=== PATIENT | male | born 1975 | race Caucasian/White ===

== ENCOUNTER 2023-04-09 10:02 | Outpatient (OUT) | payer BC, SELFPAY ==
[2023-04-09 10:47] LABS: Basophils Absolute Auto 0.1 10^3/uL (0.0-0.1); Basophils Percent Auto 0.5 % (0.2-2.0); Eosinophils Absolute Auto 0.3 10^3/uL (0.0-0.7); Eosinophils Percent Auto 2.7 % (0.9-7.0); Hematocrit 42.6 % (42.0-54.0); Hemoglobin 14.4 g/dL (14.0-18.0); Immature Granulocytes Abs Auto 0.04 10^3/uL (0.00-0.03); Immature Granulocytes Pct Auto 0.4 % (0.0-0.5); Lymphocytes Absolute Auto 2.4 10^3/uL (1.2-3.8); Lymphocytes Percent Auto 25.9 % (20.5-60.0); Mean Corpuscular HGB Conc 33.8 g/dL (29.9-35.2); Mean Corpuscular Hemoglobin 29.4 pg (25.9-34.0); Mean Corpuscular Volume 87.1 fL (80.0-94.0); Mean Platelet Volume 9.3 fL (9.5-13.5); Monocytes Absolute Auto 0.6 10^3/uL (0.3-0.8); Monocytes Percent Auto 6.7 % (1.7-12.0); Neutrophils Percent Auto 63.8 % (43.0-75.0); Platelet Count 295 10^3/uL (150-450); Red Blood Count 4.89 10^6/uL (4.70-6.10); Red Cell Distribution Width 11.9 % (11.0-15.0); White Blood Count 9.4 10^3/uL (4.0-11.0)
[2023-04-09 10:48] LABS: Estimated Average Glucose 103 mg/dL; Glycohemoglobin A1C 5.2 % (4.5-6.2)
[2023-04-09 11:03] LABS: Anion Gap 11.2; Carbon Dioxide 29.2 mmol/L (21.0-32.0); Chloride 107 mmol/L (98-107); Glucose 87 mg/dL (74-106); Potassium 5.4 mmol/L (3.5-5.1); Sodium 142 mmol/L (136-145)
[2023-04-09 11:04] LABS: Alanine Aminotransferase 26 U/L (16-63); Albumin Level 3.8 g/dL (3.4-5.0); Alkaline Phosphatase 136 U/L (46-116); Aspartate Amino Transferase 13 U/L (15-37); BUN Creatinine Ratio 15.1; Bilirubin Total 0.6 mg/dL (0.2-1.0); Calcium 9.3 mg/dL (8.5-10.1); Estimated GFR (African America >60 (>=60); Estimated GFR (Non-African Ame >60 (>=60); Globulin 3.7 g/dL; Total Protein 7.5 g/dL (6.4-8.2)
[2023-04-09 11:05] LABS: Chol HDL Ratio 3.2; Cholesterol 146 mg/dL (<=200); Free T3 3.03 pg/mL (2.18-3.98); HDL Cholesterol 46 mg/dL (40-60); Thyroid Stimulating Hormone 0.939 uIU/mL (0.358-3.740); Triglycerides 59 mg/dL (<=150); VLDL CHOLESTEROL 11.8 mg/dL
[2023-04-09 11:07] LABS: Prostate Specific Antigen Scrn 1.67 ng/mL (<=4.00)
== END 2023-04-09 10:03 | disposition home or self-care (01) ==
PROVIDERS: PCP Family Medicine; Visit Provider Family Medicine
DX: Z00.00 Encounter for general adult medical examination without abnormal findings (principal); E78.5 Hyperlipidemia, unspecified; R73.09 Other abnormal glucose; Z12.5 Encounter for screening for malignant neoplasm of prostate; Z12.12 Encounter for screening for malignant neoplasm of rectum
CPT/HCPCS: 36415; 80053; 80061; 83036; 84436; 84443; 84481; 85025; G0103

== ENCOUNTER 2024-09-01 16:36 | Outpatient (OUT) | payer OTHER, SELFPAY ==
--- NOTE | 2024-09-01 16:44 | XR_ITS ---
The [address] [address] Patient Name: BEN CR MRN: [id number] date: 1975 Sex: M Assigned Patient Location: [facility] Current Patient Location: [facility] Accession/Order Number: [id number] Exam Date: 09/01/2024 21:19 Report Date: 09/01/2024 21:21 At the request of: NORBERT ISIDRO MD Procedure: XR knee RT 3V XR knee RT 3V 09/01/2024 4:48 PM SIGNS AND SYMPTOMS: Posterior right knee pain PROTOCOL: Frontal, lateral, and oblique radiographs of the right knee COMPARISON: None FINDINGS: The weightbearing joint spaces are preserved. There is mild narrowing of patellofemoral joint space with a small joint effusion. There is no fracture or dislocation. No significant soft tissue swelling. XR/XR knee RT 3V IMPRESSION: No acute bony injury. Mild degenerative changes are noted in the patellofemoral joint space with a small joint effusion. Impression dictated by: Stevie Nash M.D. 09/01/2024 9:21 PM Dictation Location: [place] [address] Electronically authenticated by: [id number] Y Date: 09/01/2024 21:21
--- OUTSIDE RECORDS SUMMARY | 2024-09-01 16:44 | XMS_ITS | CCD ---
Author Organization [facility] Care Team Providers Care Wood Craftsman Name Role Phone RODRIGO LUCERO Unavailable Unavailable RODRIGO LUCERO Unavailable Unavailable NORBERT HERMOSILLO Unavailable Unavailable NORBERT HERMOSILLO Unavailable Unavailable DO Demarcus Bender Emergency Provider MD Norbert Hermosillo Primary Care Provider [phone] DO Jaleel Nair Attending Provider [phone] Neal Curtis Unavailable MD Norbert Hermosillo Primary Care Provider [phone] DO Jaleel Nair Attending Provider DR NORBERT HERMOSILLO Attending Unavailable DR NORBERT HERMOSILLO Consulting Unavailable DR NORBERT HERMOSILLO Primary Care Unavailable DR NORBERT HERMOSILLO Admitting Unavailable Jaleel Nair Admitting Unavailable Jaleel Nair Attending Unavailable Norbert Hermosillo Primary Care Unavailable Angi Fatima Admitting Unavailable Angi Fatima Attending Unavailable Norbert Hermosillo Primary Care Unavailable Jaleel Nair Admitting Unavailable Jaleel Nair Attending Unavailable Norbert Hermosillo Primary Care Unavailable Demarcus Bender Admitting Unavailable Demarcus Bender Attending Unavailable Norbert Hermosillo Primary Care Unavailable Jaleel Nair Admitting Unavailable Jaleel Nair Attending Unavailable Norbert Hermosillo Primary Care Unavailable MD Norbert Hermosillo Primary Care Provider [phone] MD Angi Fatima Attending Provider [phone] DO Jaleel Nair Attending Provider Angi Fatima Unavailable Josue Valderrama Attending Unavailable Allergies Allergy Classification Reported Allergen(s) Allergy Type Date of Onset Reaction(s) Facility (1 source) 35145,00; Translations: [73157,00] Propensity to adverse reactions (disorder) 1 [facility] Medications Current Medications Medication Drug Class(es) Dates Sig (Normalized) Sig (Original) gabapentin 300 mg oral capsule (3 sources) Anti-epileptic Agent Start: 01-26-2022 take 1 capsule by mouth three times daily Gabapentin 300 MG 1 capsule Orally three times daily for 30 day(s) Jan, Active ibuprofen 800 mg oral tablet (14 sources) Nonsteroidal Anti-inflammatory Drug Start: 06-06-2021 take 800 mg by mouth three times daily Ibuprofen Active 800 MG PO Three times daily June 05, 2021 11:00pm take 1 tablet by fiordaliza th every eight hours at mealtime as needed Ibuprofen 800 MG 1 tablet with food or milk as needed Orally every 8 hrs Active metaxalone 800 mg oral tablet (4 sources) Start: 06-06-2021 take 1 tablet by mouth three times daily Metaxalone (Skelaxin) 800 mg Tablet Active 800 MG PO Three times daily June 05, 2021 11:00pm nebivolol 10 mg oral tablet (13 sources) Nebivolol HCl 10 MG Oral for 81 Days Active predniSONE 10 mg oral tablet (4 sources) Start: 06-06-2021 take 60 mg by mouth once daily Prednisone Active 60 MG PO Daily 30 5 June 05, 2021 11:00pm traMADol hydrochloride 50 mg oral tablet (6 sources) Opioid Agonist Start: 01-26-2022 take 1 tablet by mouth three times daily as needed traMADol HCl 50 MG 1 tablet as needed Orally up to three times daily as needed for 7 days Jan, Active Completed/Discontinued Medications Medication Drug Class(es) Dates Sig (Normalized) Sig (Original) cyclobenzaprine hydrochloride 10 mg oral tablet (16 sources) Muscle Relaxant Start: 09-03-2021 take 1 tablet by mouth twice daily as needed Cyclobenzaprine HCl 10 MG 1 tablet as needed Orally up to twice daily as needed for 30 day(s) Oct, Not-Taking Problems Problem Classification Problem Date Documented Date Episodic/Chronic Other nervous system disorders (5 sources) Other specified mononeuropathies; Translations: [Other chronic pain] Onset: 01-16-2016 Chronic Other nervous system disorders (13 sources) Chronic pain; Translations: [Other chronic pain] Chronic Other screening for suspected conditions (not mental disorders or infectious disease) (1 source) Encounter for screening for malignant neoplasm of prostate; Translations: [ENC SCREEN MALIG NEOPLASM PROSTATE] Onset: 03-09-2022 Episodic Spondylosis; intervertebral disc disorders; other back problems (20 sources) Prolapsed lumbar intervertebral disc; Translations: [Other intervertebral disc displacement, lumbar region] Onset: 08-21-2021 Resolved: 10-21-2021 Chronic Sprains and strains (20 sources) Low back strain; Translations: [Strain of muscle, fascia and tendon of lower back, initial encounter] Onset: 08-21-2021 Resolved: 10-21-2021 06-06-2021 Episodic Unclassified (1 source) Strain of muscle, fascia and tendon of lower back, initial encounter; Translations: [Strain of muscle, fascia and tendon of lower back, initial encounter] Onset: 10-29-2021 Unclassified (1 source) Low back pain, unspecified; Translations: [Low back pain, unspecified] Onset: 06-06-2021 Results Test Name Value Interpretation Reference Range Facility CBC w/ Auto Diffon 4 Basophils/100 WBC (Bld) 0.5 % Normal 0.0-2.0 [facility] Comment on above: Performed By: #### 2 153589, [id number], 8796536, 64616848, 8298307, 0703366, 3854342, 68931472 #### [facility] [address] [place] [address] Basophils/Leukocytes Auto (Bld) [Pure # fraction] 0.1 E9/L Normal 0.0-0.2 [facility] Comment on above: Performed By: #### 2 273711, 55581566, 7846283, 90208046, 5486055, 3736192, 0001514, 59045702 #### [facility] [address] [place] [address] Eosinophils (Bld) [#/Vol] 0.2 E9/L Normal 0.0-0.5 [facility] Comment on above: Performed By: #### 2 453978, 34690266, 4042943, 24014436, 8928859, 5070016, 9253875, 33102988 #### [facility] [address] [place] [address] Eosinophils/100 WBC (Bld) 1.9 % Normal 0.0-8.0 [facility] Comment on above: Performed By: #### 2 317571, 78602820, 2631654, 19046123, 4479591, 8113718, 6423513, 44350120 #### [facility] [address] [place] [address] Erythrocyte distribution width (RBC) [Ratio] 13.0 % Normal 10.9-14.2 [facility] Comment on above: Performed By: #### 2 768516, 87606748, 5113953, 23646885, 4736854, 7544450, 3679367, 07424031 #### [facility] [address] [place] [address] Hematocrit (Bld) [Volume fraction] 41.8 % Normal 37.7-49.0 [facility] Comment on above: Performed By: #### 2 723505, 83523170, 4847592, 39528727, 8797093, 4406306, 9025679, 56000178 #### [facility] [address] [place] [address] Hemoglobin (Bld) [Mass/Vol] 14.3 g/dL Normal 13.5-17.5 [facility] Comment on above: Performed By: #### 2 130870, 26480081, 6152075, 80698708, 4981740, 5308268, 4635820, 67238986 #### [facility] [address] [place] [address] Lymphocytes (Bld) [#/Vol] 2.6 E9/L Normal 1.0-4.0 [facility] Comment on above: Performed By: #### 2 014493, 48402871, 7654352, 47067772, 2123367, 7987926, 8886467, 22857012 #### [facility] [address] [place] [address] Lymphocytes/100 WBC (Bld) 26.9 % Normal 14.0-50.0 [facility] Comment on above: Performed By: #### 2 851071, 56562130, 1420396, 83093255, 0883244, 7698065, 7240717, 70809980 #### [facility] [address] [place] [address] MCH (RBC) [Entitic mass] 29.7 pg Normal 27.0-34.0 [facility] Comment on above: Performed By: #### 2 330883, 87549347, 7770186, 62206557, 7824187, 6062174, 3597447, 70465268 #### [facility] [address] [place] [address] MCHC (RBC) [Mass/Vol] 34.3 g/dL Normal 31.4-36.0 [facility] Comment on above: Performed By: #### 2 815825, 28008235, 1603991, 00634106, 4591743, 9779574, 3324859, 42422970 #### [facility] [address] [place] [address] MCV (RBC) [Entitic vol] 86.8 fL Normal 80.0-100.0 [facility] Comment on above: Performed By: #### 2 464068, 56284852, 6171069, 24060869, 9461717, 5636201, 5590884, 25964181 #### [facility] [address] [place] [address] Monocytes (Bld) [#/Vol] 0.7 E9/L Normal 0.2-1.0 [facility] Comment on above: Performed By: #### 2 490126, 80982158, 3411520, 04125165, 8235223, 2750281, 3211265, 32261221 #### [facility] [address] [place] [address] Neutrophils (Bld) [#/Vol] 6.2 E9/L Normal 2.0-7.5 [facility] Comment on above: Performed By: #### 2 633423, 77410328, 7062940, 12413629, 1598630, 7186892, 2214294, 83758385 #### [facility] [address] [place] [address] Neutrophils/100 WBC (Bld) 63.3 % Normal 36.0-75.0 [facility] Comment on above: Performed By: #### 2 654039, 81804494, 9344218, 10805062, 7213112, 1155689, 9851685, 77750721 #### [facility] [address] [place] [address] Platelet mean volume (Bld) [Entitic vol] 7.8 fL Normal 6.4-10.8 [facility] Comment on above: Performed By: #### 2 086731, 86784161, 6656811, 70043197, 8387654, 2977861, 9834121, 82795294 #### [facility] [address] [place] [address] Platelets (Bld) [#/Vol] 248.0 E9/L Normal 150.0-500.0 [facility] Comment on above: Performed By: #### 2 630926, 99067158, 7819453, 74812882, 8754736, 0266597, 2206817, 01041253 #### [facility] [address] [place] [address] RBC (Bld) [#/Vol] 4.8 E12/L Normal 4.3-5.9 [facility] Comment on above: Performed By: #### 2 390124, 59525066, 4532082, 70666171, 2234436, 2878061, 3036225, 23553506 #### [facility] [address] [place] [address] WBC corrected for nucl RBC Auto (Bld) [#/Vol] 9.8 E9/L Normal 4.0-11.0 [facility] Comment on above: Performed By: #### 2 628863, 46216910, 6954464, 85439686, 6484281, 6873440, 3886368, 37818004 #### [facility] [address] [place] [address] CMPon 04-24-2023 Albumin [Mass/Vol] 4.3 g/dL Normal 3.3-5.0 [facility] Comment on above: Performed By: #### 2 494649, 57651105, 7087377, 51254787, 7090602, 5542034, 1316827, 52552842 #### [facility] [address] [place] [address] Albumin/Globulin (S) [Mass conc ratio] 1.7 Normal 1.1-2.2 [facility] Comment on above: Performed By: #### 2 291017, 78094832, 6887213, 78935717, 7266278, 4120771, 6528871, 55998460 #### [facility] [address] [place] [address] ALP [Catalytic activity/Vol] 102 Int._Unit/L High 21-98 [facility] Comment on above: Performed By: #### 2 648560, 74597464, 9815021, 08539554, 2175089, 7002271, 4868712, 20535539 #### [facility] [address] [place] [address] ALT No additional P-5'-P [Catalytic activity/Vol] 15 Int._Unit/L Normal 6-46 [facility] Comment on above: Performed By: #### 2 752782, 37173772, 5444532, 58935043, 5073774, 6747931, 8843174, 28253504 #### [facility] [address] [place] [address] Anion gap [Moles/Vol] 12 mmol/L Normal 6-16 [facility] Comment on above: Performed By: #### 2 278891, 76232779, 9770253, 13540531, 7618274, 6628222, 4619367, 81372327 #### [facility] [address] [place] [address] AST [Catalytic activity/Vol] 16 Int._Unit/L Normal 5-43 [facility] Comment on above: Performed By: #### 2 916430, 28552232, 4721084, 49670029, 6708517, 0117816, 7640632, 48773957 #### [facility] [address] [place] [address] Bilirubin [Mass/Vol] 0.4 mg/dL Normal 0.0-1.1 [facility] Comment on above: Performed By: #### 2 025098, 71241763, 0710366, 77123969, 9524536, 2605165, 5488083, 47417561 #### [facility] [address] [place] [address] Calcium [Mass/Vol] 9.1 mg/dL Normal 8.9-11.1 [facility] Comment on above: Performed By: #### 2 207671, 72464058, 1558353, 16798568, 2169768, 9247004, 2403652, 31611637 #### [facility] [address] [place] [address] Chloride [Moles/Vol] 108 mmol/L Normal 101-111 [facility] Comment on above: Performed By: #### 2 763765, 93689948, 8729741, 71899122, 0510183, 7137210, 2138153, 25172098 #### [facility] [address] [place] [address] CO2 [Moles/Vol] 23 mmol/L Normal 21-31 [facility] Comment on above: Performed By: #### 2 931716, 82853635, 0383555, 81174688, 5937299, 0524393, 3871848, 91502144 #### [facility] [address] [place] [address] Creatinine [Mass/Vol] 1.1 mg/dL Normal 0.5-1.3 [facility] Comment on above: Performed By: #### 2 940704, 19915506, 9897319, 18088033, 5619770, 5171554, 6599932, 06221524 #### [facility] [address] [place] [address] Globulin (S) [Mass/Vol] 2.5 g/dL Normal 1.4-4.0 [facility] Comment on above: Performed By: #### 2 074590, 64259349, 1455344, 39744801, 3267571, 8125621, 7900115, 00129245 #### [facility] [address] [place] [address] Glucose [Mass/Vol] 97 mg/dL Normal 55-199 [facility] Comment on above: Performed By: #### 2 539308, 98394004, 4779231, 22106414, 9168371, 1188108, 3024849, 46769374 #### [facility] [address] [place] [address] Potassium [Moles/Vol] 4.2 mmol/L Normal 3.5-5.3 [facility] Comment on above: Performed By: #### 2 940633, 18896244, 2628515, 99638754, 6554827, 1559940, 3592893, 49482793 #### [facility] [address] [place] [address] Protein [Mass/Vol] 6.8 g/dL Normal 6.0-7.8 [facility] Comment on above: Performed By: #### 2 524052, 47629731, 6958695, 90655912, 5697589, 4622860, 6017849, 03531823 #### [facility] [address] [place] [address] Sodium [Moles/Vol] 139 mmol/L Normal 135-145 [facility] Comment on above: Performed By: #### 2 087272, 08617585, 4054648, 90326335, 0229334, 0995819, 3581905, 40831988 #### [facility] [address] [place] [address] Urea nitrogen [Mass/Vol] 24 mg/dL High 5-21 [facility] Comment on above: Performed By: #### 2 703681, 24601044, 4974972, 04635119, 5553831, 7805793, 2046101, 74675215 #### [facility] [address] [place] [address] Urea nitrogen/Creatinine [Mass ratio] 22 No Units High 10-20 [facility] Comment on above: Performed By: #### 2 186966, 18869435, 5254346, 73662562, 4650096, 2470302, 8835814, 01903335 #### [facility] [address] [place] [address] Consent for Treatmenton Consent for Treatment [id number] .00TIFF Normal [facility] Discharge Instructionson Discharge Instructions [id number]. 00TIFF Normal [facility] ED Clinical Summaryon 2023 ED Clinical Summary [address] [address] ED Clinical Summary Person Information Name: BEN AARON [place] Age: 47 Years : 1975 Sex: Male Language: Indonesian PCP: Norbert Hermosillo MD Marital Status: Visit Id: Visit Reason: Ankle pain-swelling; Nausea; Weakness or fatigue; FEELS LIKE HES ABOUT TO FALL OVER Speciality: Acuity: 3 Enc Type: Emergency Med Service: Emergency Arrival: 04/24/2023 06:39:21 Discharge: 04/24/2023 08:21:36 LOS: 000 01:42 Checkin: 04/24/2023 06:39:21 Checkout: 04/24/2023 08:21:36 Dispo Type: Home (Routine DC) EVENTS: Event Name Event Status Request Date/Time Start Date/Time Complete Date/Time Arrive Complete 04/24/2023 06:39:21 04/24/2023 06:39:21 04/24/2023 06:39:21 Document Home Meds Request 04/24/2023 06:39:21 Triage Complete 04/24/2023 06:39:21 04/24/2023 06:48:10 04/24/2023 06:48:10 EKG Complete 04/24/2023 06:45:00 04/24/2023 06:51:17 Registration Complete 04/24/2023 06:46:37 04/24/2023 06:46:37 04/24/2023 06:46:37 Reg Complete Request 04/24/2023 06:46:37 Reg Bed Request Complete 04/24/2023 06:46:37 04/24/2023 06:46:37 04/24/2023 06:46:37 Bed Assign Complete 04/24/2023 06:52:24 04/24/2023 06:52:24 04/24/2023 06:52:24 Dr Exam Complete 04/24/2023 06:52:24 04/24/2023 07:03:42 04/24/2023 07:03:42 RN Exam Complete 04/24/2023 06:52:24 04/24/2023 06:56:01 04/24/2023 06:56:01 Registration Complete 04/24/2023 07:03:42 04/24/2023 07:16:13 04/24/2023 07:16:13 Pending Labs Complete 04/24/2023 07:13:49 04/24/2023 07:48:21 Lab Complete 04/24/2023 07:13:49 04/24/2023 07:47:48 Urine Collect Complete 04/24/2023 07:13:49 04/24/2023 07:47:48 X-Ray Complete 04/24/2023 07:13:49 04/24/2023 07:39:46 04/24/2023 07:51:35 Pending Labs Complete 04/24/2023 07:18:11 04/24/2023 07:18:11 04/24/2023 07:36:32 Lab Complete 04/24/2023 07:18:11 04/24/2023 07:18:11 04/24/2023 07:36:32 Pending Labs Complete 04/24/2023 07:44:02 04/24/2023 07:44:02 04/24/2023 07:44:03 Wet Read Complete 04/24/2023 07:51:35 04/24/2023 07:51:42 04/24/2023 07:51:42 Discharge Complete 04/24/2023 08:14:23 04/24/2023 08:21:42 04/24/2023 08:21:42 Transfer Complete 04/24/2023 08:21:42 04/24/2023 08:21:42 04/24/2023 08:21:42 ADDRESS: [address] [place] [id number] [facility] DOC NOTES: MEDICAL INFORMATION: Prescriptions Given: Medications to Continue with No Changes Other Medications nebivolol (nebivolol 10 mg Tab) 1 Tablets By Mouth every day. PATIENT EDUCATION INFORMATION: Instructions: Weakness; Bradycardia, Adult Follow up: With: Address: When: Kendell Harp [address] [place] [address] Business (1) In 3 days 04/27/2023 With: Address: When: Tammyjossy Lunaker [address], [facility] [address] [place] [address] Business (1) In 3 days 04/27/2023 DIAGNOSIS: Bradycardia; Weakness Normal [facility] ED Note-Physicianon 04-24-19 ED Note-Physician Basic Information Time Seen: Josue Valderrama DO 04/24/2023 07:03 Chief Complaint I feel like I am going to fall over , feel cold and nauseated since this AM. Intermittent throughout the week, worse this AM. (L) ankle pain last night that was shooting and gone this AM. No N/V/D. History of Present Illness 47 male presents to the emergency department with generalized weakness. Patient states he has been feeling this way throughout the last week. He cannot really describe it he states that he just feels generally weak all over. This is not one-sided. He has never had anything like this before. He denies any pain no headache chest pain or abdominal pain no recent illnesses no cough fevers nausea vomiting diarrhea. He does state that he has had some difficulty urinating and does mention a foul-smelling urine. Only significant past medical history is that he has had partial nephrectomy due to kidney cancer back in 2019. He did state that he had some recent blood work done within the last few weeks and his potassium level was noted to be high but his primary care physician did not seem to be concerned about this family would like this checked again today. He denies any history of problems with his thyroid. He does take nebivolol and states he has been on this for some time he denies any recent changes to this medication regimen. No other aggravating or relieving factors no other associated symptoms no other prior treatments or complaints. Family: Reviewed and noncontributory Social: lives at home Review of systems negative unless otherwise specified in the HPI. Physical Exam Vitals & Measurements T: 36.5 ?C(Oral) HR: 55(Monitored) RR: 16 BP: 125/83 SpO2: 99% HT: 182 cm WT: 114.6 kg BMI: 34.6 General: The patient appears well and in no apparent distress. Patient is resting comfortably on cart. Skin: Warm, dry, no pallor noted. Head: Normocephalic, atraumatic Neck: No JVD Eye: PERRLA, EOMI ENT: Moist mucus membranes Cardiovascular: Bradycardic rate regular rhythm with normal peripheral perfusion Respiratory: No respiratory distress no accessory muscle use no obvious audible wheezing Chest Wall: no deformity Musculoskeletal: normal ROM, no deformity, no swelling GI: Soft no obvious distention. No rebound or rigidity. No guarding. No tenderness. Neurological: A&O moves all extremities equal strength and symmetry no focal motor or sensory deficits full range of motion noted to the bilateral upper and lower extremities. Cranial nerves grossly intact as tested. Psychiatric: Cooperative and appropriate Medical Decision Making Workup in the ER has been reviewed and noted. Workup here is essentially benign. Cardiac and kidney workup benign chest x-ray is normal thyroid studies are normal [place] testing is negative. The etiology of the generalized weakness not entirely clear at this time. Patient does have nonspecific bradycardia likely secondary to the nebivolol. It is unclear if this has any clinical significance or is playing a role in his generalized fatigue. Family did request referral to new primary care physician and this was provided here. 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 Therefore patient is given referral to cardiology here. We talked about the very large differential diagnosis for generalized weakness without cause including neurological symptoms. I did explain that this may take days weeks or sometimes months or years to sort out and that he would need to follow-up with his primary care physician and may need to see specialist if other things develop such as neurological symptoms. Patient and family understood and ultimately patient is discharged home to follow-up. Assessment/Plan Bradycardia (R00.1: Bradycardia, unspecified) Weakness (R53.1: Weakness) Orders: CBC w/ Auto Diff Comprehensive Metabolic Panel eGFR Extra Blue Tube Lipase Level Magnesium Level Mononucleosis Screen Troponin 0 Hr. TSH With T4fr Reflex UA With Cult Reflex XR Chest 2 Views Disposition Plan Discharge Prescription List Prescriptions No active prescription medications Follow-up With When Contact Information Kendell Harp In 3 days 04/27/2023 EDT [address] [place] [address]- Business (1) Additional Instructions: Tammy Mckeon In 3 days 04/27/2023 EDT [address], [address] [place] [address]- Business (1) Additional Instructions: Patient Education Weakness Bradycardia, Adult Problem List/Past Medical History Ongoing Acute bronchitis Anxiety BMI 35.0-35.9,adult Chest pain Complex renal cyst Depression Diabetes Duodenitis Encounter for vasectomy Esophagitis Genital warts GERD (gastroesophageal reflux disease) Hypertension Insomnia Knee osteoarthritis Lesion of left femoral nerve Lumbar radiculopathy Obesity Reflex symp (more content not included)... Normal [facility] Comment on above: Result Comment: Elec tronically Signed By: Josue Valderrama DO\db\Date and Time Signed: 04/24/23 08:16 EST ED Patient Education Noteon 04-24-2023 ED Patient Education Note Emergency Medicine Bradycardia, Adult Bradycardia is a jyxsyz-kfhx-eyldsl heartbeat. A normal resting heart rate for an adult ranges from 60 to 100 beats per minute. With bradycardia, the resting heart rate is less than 60 beats per minute. Bradycardia can prevent enough oxygen from reaching certain areas of your body when you are active. It can be serious if it keeps enough oxygen from reaching your brain and other parts of your body. Bradycardia is not a problem for everyone. For some healthy adults, a slow resting heart rate is normal. What are the causes? This condition may be caused by: ? A problem with the heart, including: ? A problem with the heart's electrical system, such as a heart block. With a heart block, electrical signals between the chambers of the heart are partially or completely blocked, so they are not able to work as they should. ? A problem with the heart's natural pacemaker (sinus node). ? Heart disease. ? A heart attack. ? Heart damage. ? Lyme disease. ? A heart infection. ? A heart condition that is present at (congenital heart defect). ? Certain medicines that treat heart conditions. ? Certain conditions, such as hypothyroidism and obstructive sleep apnea. ? Problems with the balance of chemicals and other substances, like potassium, in the blood. ? Trauma. ? Radiation therapy. What increases the risk? You are more likely to develop this condition if you: ? Are age 65 or older. ? Have high blood pressure (hypertension), high cholesterol (hyperlipidemia), or diabetes. ? Drink heavily, use tobacco or nicotine products, or use drugs. What are the signs or symptoms? Symptoms of this condition include: ? Light-headedness. ? Feeling faint or fainting. ? Fatigue and weakness. ? Trouble with activity or exercise. ? Shortness of breath. ? Chest pain (angina). ? Drowsiness. ? Confusion. ? Dizziness. How is this diagnosed? This condition may be diagnosed based on: ? Your symptoms. ? Your medical history. ? A physical exam. During the exam, your health care provider will listen to your heartbeat and check your pulse. To confirm the diagnosis, your health care provider may order tests, such as: ? Blood tests. ? An electrocardiogram (ECG). This test records the heart's electrical activity. The test can show how fast your heart is beating and whether the heartbeat is steady. ? A test in which you wear a portable device (event recorder or Holter monitor) to record your heart's electrical activity while you go about your day. ? An exercise test. How is this treated? Treatment for this condition depends on the cause of the condition and how severe your symptoms are. Treatment may involve: ? Treatment of the underlying condition. ? Changing your medicines or how much medicine you take. ? Having a small, battery-operated device called a pacemaker implanted under the skin. When bradycardia occurs, this device can be used to increase your heart rate and help your heart beat in a regular rhythm. Follow these instructions at home: Lifestyle ? Manage any health conditions that contribute to bradycardia as told by your health care provider. ? Follow a heart-healthy diet. A job development specialist (dietitian) can help educate you about healthy food options and changes. ? Follow an exercise program that is approved by your health care provider. ? Maintain a healthy weight. ? Try to reduce or manage your stress, such as with yoga or meditation. If you need help reducing stress, ask your health care provider. ? Do not use any products that contain nicotine or tobacco. These products include cigarettes, chewing tobacco, and vaping devices, such as e-cigarettes. If you need help quitting, ask your health care provider. ? Do not use illegal drugs. Alcohol use If you drink alcohol: ? Limit how much you have to: ? 0?1 drink a day for women who are not . ? 0?2 drinks a day for men. ? Know how much alcohol is in a drink. In the [place] one drink equals one 12 oz bottle of beer (355 mL), one 5 oz glass of wine (148 mL), or one 1? oz glass of hard liquor (44 mL). General instructions ? Take fxye-vpd-dykytiy and prescription medicines only as told by your health care provider. ? Keep all follow-up visits. This is important. How is this prevented? In some cases, bradycardia may be prevented by: ? Treating underlying medical problems. ? Stopping behaviors or medicines that can trigger the condition. Contact a health care provider if: ? You feel light-headed or dizzy. ? You almost faint. ? You feel weak or are easily fatigued during physical activity. ? You experience confusion or have memory problems. Get help right away if: ? You faint. ? You have chest pains or an irregular heartbeat (palpitations). ? You have trouble breathing. These symptoms may represent a serious problem that is an emergency. Do not wait to s (more content not included)... Normal [facility] ED Patient Summaryon 024 ED Patient Summary [place] [address] Patient Discharge Instructions Person Information Name: BEN AARON Age: 47 Years Arrival Date: 04/24/2023 06:39:21 Discharge Diagnosis: Bradycardia; Weakness Primary Care Physician: Norbert Hermosillo MD Provider Information Primary Provider: Josue Valderrama DO Advanced Rotary Pump Operator:Marie The exam and treatment you received in the Emergency Department were for an urgent problem and are not intended as complete care. It is important that you follow up with a doctor, nurse practitioner, or physician?s pathologist assistant for ongoing care. If your symptoms become worse or you do not improve as expected and you are unable to reach your usual health care provider, you should return to the Emergency Department. We are available 24 hours a day. BEN AARON has been given the following list of patient education materials, prescriptions and follow-up instructions: Follow-up Instructions: With: Address: When: Kendell Harp [address] [place] [address] [facility] () In 3 days 04/27/2023 With: Address: When: [facility] Mckeon [address] [facility] , [address] [address] [facility] (1) In 3 days 04/27/2023 In the event that this physician does not participate in your insurance network, please consult with your insurance company to find a nearby participating provider. Patient Education Materials: Weakness; Bradycardia, Adult A MESSAGE TO ALL PATIENTS REGARDING OPIOIDS PRESCRIPTION OPIOIDS: WHAT YOU NEED TO KNOW Prescription opioids can be used to help relieve renocluh-sb-hexsng pain and are often prescribed following a surgery or injury, or for certain health conditions. These medications can be an important part of the treatment but also come with serious risks. It is important to work with your healthcare provider to make sure you are getting the safest, most effective care. WHAT ARE THE RISKS AND SIDE EFFECTS OF OPIOID USE? Prescription opioids carry serious risks of addiction and overdose, especially with prolonged use. An opioid overdose, often marked by slowed breathing, can cause sudden . The use of prescription opioids can have a number of side effects as well, even when taken as directed: ? Tolerance?meaning you might need to take more of the medication for the same pain relief ? Physical dependence?meaning you have symptoms of withdrawal when a medication is stopped ? Increased sensitivity to pain ? Constipation ? Nausea, vomiting, and dry mouth ? Sleepiness and dizziness ? Confusion ? Depression ? Low levels of testosterone that can result in lower sex drive, energy, and strength ? Itching and sweating RISKS ARE GREATER WITH: ? History of drug misuse, substance use disorder, or overdose ? Mental health conditions (such as depression or anxiety) ? Sleep apnea ? Older age (65 years and older) ? Avoid alcohol while taking prescription opioids. Also, unless specifically advised by your health care provider, medications to avoid include: ? Benzodiazepines (such as Xanax or Valium) ? Muscle relaxants (such as Soma or Flexeril) ? Hypnotics (such as Ambien or Lunesta) ? Other prescription opioids KNOW YOUR OPTIONS Talk to your health care provider about ways to manage your pain that don?t involve prescription opioids. Some of these options may actually work better and have fewer risks and side effects. Options may include: ? Pain relievers such as acetaminophen, ibuprofen, and naproxen ? Some medication that are also used for depression or seizures ? Physical therapy and exercise ? Cognitive behavioral therapy, a psychological, goal-directed approach, in which patients learn how to modify physical, behavioral, and emotional triggers of pain and stress. IF YOU ARE PRESCRIBED OPIOIDS FOR PAIN: ? Never take opioids in greater amounts or more often than prescribed. ? Follow up with your primary health care provider. o Work together to create a plan on how to manage your pain. o Talk about ways to help manage your pain that don?t involve prescription opioids. o Talk about any and all concerns and side effects. ? Help prevent misuse and abuse o Never sell or share prescription opioids. o Never use another person?s prescription opioids. ? Store prescription opioids in a secure place and out of reach of others (this may include visitors, children, friends, and family). ? Safely dispose of unused prescription opioids: Find your community drug take-back program or your pharmacy mail-back program, or flush them down the toilet, following guidance from the Food and Drug Administration (www.fda.gov/Drugs/Re sourcesForYou). ? Visit www.cdc.gov/drugoverd ose to learn about the risks of opioids abuse and overdose. ? If you believe you may be struggling with addiction, tell y (more content not included)... Normal [facility] Lipase Levelon 04-24-2023 Lipase [Catalytic activity/Vol] 19 U/L Normal 13-58 [facility] Comment on above: Performed By: #### 2 [id number], [id number], 1575934, [id number], 4270179, 4065154, 6926660, [id number] #### [facility] Laboratory [address] [place] [address] Magnesiumon 04-24-2023 Magnesium [Mass/Vol] 2.0 mg/dL Normal 1.3-2.4 [facility] Comment on above: Performed By: #### 2 [id number], [id number], 6201124, 28629145, 7381488, 2177419, 5463466, [id number] #### [facility] [address] [place] [address] [place] Screenon 04-24-2023 Heterophile Ab LA Ql (S) Negative Normal Negative [facility] Comment on above: Performed By: #### 2 940302, [id number], 0401502, [id number], 9560325, 6903589, 8281910, [id number] #### [facility] [address] [place] [address] TSH With T4fr Reflexon 04-23 TSH Qn 1.05 m[IU]/L Normal 0.34-5.60 [facility] Comment on above: Performed By: #### 2 952049, [id number], 5766026, 88601774, 4489894, 6274166, 4637272, 15492029 #### [facility] [address] [place] [address] Troponin 0 Hr.on 04-24-2023 Troponin 4.10 pg/mL Low 15.90-38.40 [facility] Comment on above: Result Comment: The 95% CI (Confidence Interval) PPV (Positive Predictive Value) for myocardial infarction in females is 38 pg/mL, in males 51 pg/mL. The results should be used in conjunction with clinical conditions of myocardial infarction. (Access High Sensitivity Troponin I Instructions For Use, Triston Morton, September 2017) Performed By: #### 2 [id number], [id number], 1073562, 17110957, 5382569, 6400472, 3784034, [id number] #### [facility] [address] [place] [address] UA With Cult Reflexon 2023 Bilirubin Ql (U) Negative Normal Negative [facility] Comment on above: Performed By: #### 1 [id number] ####[facility] [address] [place] [address] Clarity (U) CLEAR Normal Clear [facility] Comment on above: Performed By: #### 1 [id number] ####[facility] [address] [place] [address] Color (U) YELLOW Normal Yellow [facility] Comment on above: Performed By: #### 1 [id number] ####[facility] [address] [place] [address] Epithelial cells.squamous LM.HPF (Urine sed) [#/Area] 0-2 Normal 0-2 [facility] Comment on above: Performed By: #### 1 [id number] ####[facility] [address] [place] [address] Glucose Test strip (U) [Mass/Vol] Negative Normal Negative [facility] Comment on above: Performed By: #### 1 [id number] ####[facility] [address] [place] [address] Hemoglobin Ql (U) Negative Normal Negative [facility] Comment on above: Performed By: #### 1 [id number] ####[facility] [address] [place] [address] Ketones (U) [Mass/Vol] Negative Normal Negative [facility] Comment on above: Performed By: #### 1 [id number] ####[address] [address] [place].plasma/Lithi um.RBC (Bld) [Mass ratio] 0-3 Normal 0-3 [facility] Comment on above: Performed By: #### 1 [id number] ####[address] [address] Nitrite Ql (U) Negative Normal Negative [facility] Comment on above: Performed By: #### 1 7043582 ####[address] [address] pH (U) 6.0 [pH] Invalid Interpretation Code 5.0-9.0 [facility] Comment on above: Performed By: #### 1 [id number] ####[address] [address] Protein (U) [Mass/Vol] Negative Normal Negative [facility] Comment on above: Performed By: #### 1 [id number] ####[address] [address] Specific gravity (U) [Rel density] 1.015 Invalid Interpretation Code 1.005-1.030 [facility] Comment on above: Performed By: #### 1 [id number] ####[address] [address] Type of Urine collection method Clean Catch Normal [facility] Comment on above: Performed By: #### 1 [id number] ####[address] [address] Urobilinogen Qn (U) 1.0 {Darrius'U}/dL Normal 0.0-1.0 [facility] Comment on above: Performed By: #### 1 3757551 ####[address] [address] WBC Auto Ql (U) Negative Normal Negative [facility] Comment on above: Performed By: #### 1 [id number] ####[facility] [address] [place] [address] WBC LM.HPF (Urine sed) [#/Area] 0-5 Normal 0-5 [facility] Comment on above: Performed By: #### 1 [id number] ####[facility] [address] [place] [address] XR Chest 2 Viewson XR Chest 2 Views Exam Date/Time: 04/24/2023 07:51 EST Reason for Exam: Difficulty breathing Report IMPRESSION: NO EVIDENCE OF ACTIVE CARDIOPULMONARY DISEASE. EXAM: XR Chest 2 Views DATE: 04/24/2023 7:39 AM CLINICAL HISTORY: Difficulty breathing. COMPARISON: Portable chest 10/14/2017 and two-view chest 10/05/2017 TECHNIQUE: Upright PA and lateral radiographs of the chest were obtained. FINDINGS: There is no significant pulmonary infiltrate, cardiomegaly, pleural effusion, vascular congestion, pneumothorax, or displaced fractures identified. Ordering Provider: Josue Valderrama FINAL REPORT Dictated: 04/24/2023 10:34 am Marcos Anna MD Signed (Electronic Signature): 04/24/2023 10:34 am Signed by: Marcos Anna MD Transcribed by: KADEEM Technologist: LUCIANA Technical Comments Radiation Dose: Ka,r in mGy = na DAP = na Normal [facility] eGFRon 04-24-2023 eGFR 82 mL/min/1.73 m2 Normal >=59 [facility] Comment on above: Order Comment: Order added by Discern Expert. Performed By: #### 2 [id number], [id number], 0735354, 92359241, 0714326, 3989779, 7623226, [id number] #### [facility] [address] [place] [address] INSULINon 03-05-2022 Insulin 33.9 uIU/mL Critically high 2.6-24.9 [facility] Comment on above: Performed By: #### I NSULIN #### [facility] [address] [place], [place] [address] Dr. Shawn Clay CBC AUTO DIFFon 03-04-2022 BASO # 0.1 103/ul Normal 0.0-0.1 [facility] Comment on above: Performed By: #### C BC #### [facility] [address] [place] [address] [address] Shawn Clay Basophils/100 WBC (Bld) 0.4 % Normal 0.2-2.0 [facility] Comment on above: Performed By: #### C BC #### [facility] [address] [place] [address] [address] Shawn Clay EO # 0.3 103/ul Normal 0.0-0.7 [facility] Comment on above: Performed By: #### C BC #### [facility] [address] [place] [address] Dr. Shawn Clay Eosinophils/100 WBC (Bld) 2.5 % Normal 0.9-7.0 [facility] Comment on above: Performed By: #### C BC #### [facility] [address] [place] [address] Dr. Shawn Clay Erythrocyte distribution width (RBC) [Ratio] 12.5 % Normal 11.0-15.0 [facility] Comment on above: Performed By: #### C BC #### [facility] [address] [place] [address] Dr. Shawn Clay Hematocrit (Bld) [Volume fraction] 46.8 % Normal 42.0-54.0 [facility] Comment on above: Performed By: #### C BC #### [facility] [address] [place] [address] Dr. Shawn Clay Hemoglobin (Bld) [Mass/Vol] 15.8 g/dL Normal 14.0-18.0 [facility] Comment on above: Performed By: #### C BC #### [facility] [address] [place] [address] Dr. Shawn Clay IG # 0.08 10e3/ul Critically high 0.00-0.[address] [facility] Comment on above: Performed By: #### C BC #### [facility] [address] [place] [address] Dr. Shawn Clay IG % 0.7 % Critically high 0.0-0.5 [facility] Comment on above: Performed By: #### C BC #### [facility] [address] [place] [address] Dr. Shawn Clay LYMPH # 3.1 103/ul Normal 1.2-3.8 [facility] Comment on above: Performed By: #### C BC #### [facility] [address] [place] [address] Dr. Shawn Clay Lymphocytes/100 WBC (Bld) 28.0 % Normal 20.5-60.0 [facility] Comment on above: Performed By: #### C BC #### [facility] [address] [place] [address] Dr. Shawn Clay MANUAL DIFF REQ NO Normal [facility] Comment on above: Performed By: #### C BC #### [facility] [address] [place] [address] Dr. Shawn Clay MCH (RBC) [Entitic mass] 30.1 pg Normal 25.9-34.0 [facility] Comment on above: Performed By: #### C BC #### [facility] [address] [place] [address] Dr. Shawn Clay MCHC (RBC) [Mass/Vol] 33.8 g/dL Normal 29.9-35.2 [facility] Comment on above: Performed By: #### C BC #### [facility] [address] [place] [address] Dr. Shawn Clay MCV (RBC) [Entitic vol] 89.1 fL Normal 80.0-94.0 [facility] Comment on above: Performed By: #### C BC #### [facility] [address] [place] [address] Dr. Shawn Clay MONO # 0.9 103/ul Critically high 0.3-0.8 [facility] Comment on above: Performed By: #### C BC #### [facility] [address] [place] [address] Dr. Shawn Clay Monocytes/100 WBC (Bld) 7.9 % Normal 1.7-12.0 [facility] Comment on above: Performed By: #### C BC #### [facility] [address] [place] [address] Dr. Shawn Clay NEUT # 6.8 103/ul Critically high 1.4-6.5 [facility] Comment on above: Performed By: #### C BC #### [facility] [address] [place] [address] Dr. Shawn Clay Neutrophils/100 WBC (Bld) 60.5 % Normal 43.0-75.0 [facility] Comment on above: Performed By: #### C BC #### [facility] [address] [place] [address] Dr. Shawn Clay Platelet mean volume (Bld) [Entitic vol] 9.4 fL Critically low 9.5-13.5 [facility] Comment on above: Performed By: #### C BC #### [facility] [address] [place] [address] Dr. Shawn Clay PLT 293 103/ul Normal 150-450 [facility] Comment on above: Performed By: #### C BC #### [facility] [address] [place] [address] Dr. Shawn Clay RBC 5.25 106/ul Normal 4.70-6.10 [facility] Comment on above: Performed By: #### C BC #### [facility] [address] [place] [address] Dr. Shawn Clay WBC 11.2 103/ul Critically high 4.0-11.0 [facility] Comment on above: Performed By: #### C BC #### [facility] [address] [place] [address] Dr. Shawn Clay GLYCOHEMOGLOBIN A1Con 2022 ADA RECOMMENDATION SEE BELOW Normal [facility] Comment on above: Result Comment: ADA RECOMMENDED LIMIT 4.0 - 6.0 ADA THERAPEUTIC TARGET < 7.0 ACTION SUGGESTED > 7.0 Performed By: #### A 1C #### [facility] [address] [place], [place] [id number] Dr. Shawn Clay Glucose [Mass/Vol] 105 mg/dL Normal [facility] Comment on above: Performed By: #### A 1C #### [facility] [address] [place] [address] [address] Shawn Clay HbA1c (Bld) [Mass fraction] 5.3 % Normal 4.5-6.2 [facility] Comment on above: Performed By: #### A 1C #### [facility] [address] [place] [address] [address] Shawn Clay LIPID PROFILEon 03-04-2022 CHOL-HDL RATIO NORM SEE BELOW Normal [facility] Comment on above: Result Comment: 3.3 - 4.4 LOW RISK 4.4 - 7.1 AVERAGE RISK 7.1 - 11.0 MODERATE RISK >11.0 HIGH RISK Performed By: #### U EVERARDO, LIPID, CMP #### [facility] [address] [place] [address] [address] Shawn Clay Cholesterol [Mass/Vol] 159 mg/dL Normal <=200 [facility] Comment on above: Performed By: #### U EVERARDO, LIPID, CMP #### [facility] [address] [place] [address] [address] Shawn Clay Cholesterol in HDL [Mass/Vol] 34 mg/dL Critically low 40-60 [facility] Comment on above: Performed By: #### U EVERARDO, LIPID, CMP #### [facility] [address] [place] [address] [address] Shawn Clay Cholesterol in LDL [Mass/Vol] 95.6 mg/dL Normal [facility] Comment on above: Performed By: #### U EVERARDO, LIPID, CMP #### [facility] [address] [place] [address] [address] Shawn Clay Cholesterol.total/Ch olesterol in HDL [Mass ratio] 4.7 {ratio} Normal [facility] Comment on above: Performed By: #### U EVERARDO, LIPID, CMP #### [facility] [address] [place] [address] [address] Shawn Clay HDL NORMAL > or = 60 mg/dl - LO W CARDIOVASCULAR RISK <40 mg/dl - HIGH CARDIOVASCULAR RISK Normal [facility] Comment on above: Performed By: #### U EVERARDO, LIPID, CMP #### [facility] [address] [place] [address] [address] Shawn Clay LDL CALC NORMAL SEE BELOW Normal [facility] Comment on above: Result Comment: <100 mg/dl OPTIMAL 100 - 129 mg/dl NEAR OR ABOVE OPTIMAL 130 - 159 mg/dl BORDERLINE HIGH 160 - 189 mg/dl HIGH >190 mg/dl VERY HIGH Performed By: #### U EVERARDO, LIPID, CMP #### [facility] [address] [place] [address] [address] Shawn Clay Triglyceride [Mass/Vol] 147 mg/dL Normal <=150 [facility] Comment on above: Performed By: #### U EVERARDO, LIPID, CMP #### [facility] [address] [place] [address] [address] Shawn Clay VLDL CALC 29.4 mg/dL Normal [facility] Comment on above: Performed By: #### U EVERARDO, LIPID, CMP #### [facility] [facility] [address] [address] [address] Shawn Clay PROF 14(COMP METB)on 023 Albumin [Mass/Vol] 3.7 g/dL Normal 3.4-5.0 [facility] Comment on above: Performed By: #### U EVERARDO, LIPID, CMP #### [facility] [address] [address] [address] Shawn Clay Albumin/Globulin [Mass ratio] 1.1 {ratio} Normal [facility] Comment on above: Performed By: #### U EVERARDO, LIPID, CMP #### [facility] [address] [address] [address] Shawn Clay ALP [Catalytic activity/Vol] 122 U/L Critically high 46-116 [facility] Comment on above: Performed By: #### U EVERARDO, LIPID, CMP #### [facility] [address] [address] [address] Shawn Clay ALT [Catalytic activity/Vol] 21 U/L Normal 16-63 [facility] Comment on above: Performed By: #### U EVERARDO, LIPID, CMP #### [facility] [address] [address] [address] Shawn Clay Anion gap [Moles/Vol] 11.3 mmol/L Normal [facility] Comment on above: Performed By: #### U EVERARDO, LIPID, CMP #### [facility] [address] [address] [address] Shawn Clay AST [Catalytic activity/Vol] 21 U/L Normal 15-37 [facility] Comment on above: Performed By: #### U EVERARDO, LIPID, CMP #### [facility] [address] [address] [address] Shawn Clay Bilirubin [Mass/Vol] 0.7 mg/dL Normal 0.2-1.0 [facility] Comment on above: Performed By: #### U EVERARDO, LIPID, CMP #### [facility] [address] [address] [address] Shawn Clay Calcium [Mass/Vol] 9.3 mg/dL Normal 8.5-10.1 [facility] Comment on above: Performed By: #### U EVERARDO, LIPID, CMP #### [facility] [address] [address] [address] Shawn Clay Chloride [Moles/Vol] 107 mmol/L Normal 98-107 [facility] Comment on above: Performed By: #### U EVERARDO, LIPID, CMP #### [facility] [address] [address] [address] Shawn Clay CO2 [Moles/Vol] 30.7 mmol/L Normal 21.0-32.0 [facility] Comment on above: Performed By: #### U EVERARDO, LIPID, CMP #### [facility] [address] [address] [address] Shawn Clay Creatinine [Mass/Vol] 1.25 mg/dL Normal 0.70-1.30 [facility] Comment on above: Performed By: #### U EVERARDO, LIPID, CMP #### [facility] [address] [address] [address] Shawn Clay EGFR-AF BOTSWANAN >60 Normal >=60 [facility] Comment on above: Performed By: #### U EVERARDO, LIPID, CMP #### [facility] [address] [address] [address] Shawn Clay EGFR-NON AF BOTSWANAN >60 Normal >=60 [facility] Comment on above: Performed By: #### U EVERARDO, LIPID, CMP #### [facility] [address] [address] [address] Shawn Clay Globulin (S) [Mass/Vol] 3.4 g/dL Normal [facility] Comment on above: Performed By: #### U EVERARDO, LIPID, CMP #### [facility] [address] [address] [address] Shawn Clay Glucose [Mass/Vol] 91 mg/dL Normal 74-106 [facility] Comment on above: Performed By: #### U EVERARDO, LIPID, CMP #### [facility] [address] [place] [address] Dr. Shawn Clay Potassium [Moles/Vol] 4.0 mmol/L Normal 3.5-5.1 [facility] Comment on above: Performed By: #### U EVERARDO, LIPID, CMP #### [facility] [address] [place] [address] Dr. Shawn Clay Protein [Mass/Vol] 7.1 g/dL Normal 6.4-8.2 [facility] Comment on above: Performed By: #### U EVERARDO, LIPID, CMP #### [facility] [address] [place] [address] Dr. Shawn Clay Sodium [Moles/Vol] 145 mmol/L Normal 136-145 [facility] Comment on above: Performed By: #### U EVERARDO, LIPID, CMP #### [facility] [address] [place] [address] Dr. Shawn Clay Urea nitrogen [Mass/Vol] 20.0 mg/dL Critically high 7.0-18.0 [facility] Comment on above: Performed By: #### U EVERRADO, LIPID, CMP #### [facility] [address] [place] [address] Dr. Shawn Clay Urea nitrogen/Creatinine [Mass ratio] 16.0 mg/mg Normal [facility] Comment on above: Performed By: #### U EVERARDO, LIPID, CMP #### [facility] [address] [place], [place] [address] Dr. Shawn Clay URIC ACID SERUMon 03-04-2022 Urate [Mass/Vol] 6.9 mg/dL Normal 3.5-7.2 [facility] Comment on above: Performed By: #### U EVERARDO, LIPID, CMP #### [facility] [address] [place], [place] [address] Dr. Shawn Clay MR lumbar spine wo conon MR lumbar spine wo con [facility] [place] [address] [place] [address] MRI Report Signed Patient: Ben Aaron MR#: [id number] 735 : 1975 Acct:[id number] Age/Sex: 46 / M ADM Date: 02/26/22 Loc: Room: Type: [facility] Attending Dr: Angi Fatima MD Copies to: Angi Fatima MD Ordering Provider: Angi Fatima MD Date of Service: 02/26/22 MR/MR lumbar spine wo con: S39.014a MRI lumbar spine withoutcontrast TECHNIQUE: Multiplanar T1 and T2-weighted imaging of lumbar spine obtained without contrast. HISTORY:Low back pain since May. History of renal cancer. COMPARISON:06/28/21 Lumbar lordosis is adequate. No listhesis is identified in supine position. No lumbar spine fracture is identified. No hydronephrosis is identified. No aortic aneurysm is seen. The distal spinal cord is in adequate position without abnormality. T11-12 level is unremarkable. T12-L1 level is unremarkable. L1-2:Unremarkable L2-3: Mild spondylosis. No disc herniation. Mild facet ligamentum flavum hypertrophy. Patent central canal and neural foramen. L3-4:Mild spondylosis. Moderate facet ligamentum flavum hypertrophy. Patent central canal. Patent neural foramen. L4-5:Moderate spondylosis. Midline disc protrusion with concavity of the anterior thecal sac. Patent central canal. Facet ligamentum flavum hypertrophy. Moderate bilateral neural foraminal lisandra rowing, similar prior examination. L5-S1:Mild spondylosis. No significant disc herniation. Patent central canal. Facet ligamentum flavum hypertrophy. Mild bilateral neural foraminal narrowing MR/MR lumbar spine wo con IMPRESSION:Similar L4-5 midline disc protrusion. Similar moderate bilateral L4-5 neural foraminal narrowing. No new findings. Impression dictated by: Giancarlo Greer M.D.02/27/2022 9:26 AM Dictation Location: [place] [address] Transcribed By: [facility] 02/27/22925 Dictated By: Giancarlo Greer DO 02/27/22920 Signed By: 02/27/22925 Normal [facility] MR lumbar spine wo/w conon 0 06-28-2021 MR lumbar spine wo/w con [place] [address] MRI Report Signed Patient: Ben Aaron MR#: [id number] 735 : 1975 Acct:[id number] Age/Sex: 45 / M ADM Date: 06/28/21 Loc: Room: Type: [facility]ending [facility] Ordering Provider: Jaleel Nair DO Date of Service: 06/28/21 MR/MR lumbar spine wo/w con: SEVERE LUMBAR PAIN, BILATERAL RADICULOPATHY Copies to: Jaleel Nair DO MRI lumbar spine 06/28/2021. CLINICAL DATA: Low back pain with radiation to both lower extremities. TECHNIQUE: MRI of the lumbar spine was performed without and with intravenous contrast. COMPARISON: Plain radiographs lumbar spine 06/06/2021. FINDINGS: Vertebral alignment is normal and the intervertebral disc spaces are relatively intact. Mild discovertebral degenerative changes are identified. Hypertrophic ligamentous and facet joint changes are also seen. There is posterior disc bulging in the midline at L4-L5 and mild to moderate central spinal canal stenosis is visualized along with right and left lateral recess narrowing at this level. There is also bilateral neural foraminal narrowing at L4-L5, greater on the right than left. Additional foraminal narrowing is noted at L5-S1 on the right. No suspicious bony signal abnormality is identified. No abnormal contrast enhancement is seen. The paraspinal soft tissues appear unremarkable. MR/MR lumbar spine wo/w con IMPRESSION: 1. Mild discovertebral degenerative changes along with hypertrophic ligamentous and facet joint changes. 2. Posterior disc bulging and mild to moderate central spinal canal stenosis at L4-L5. Right and left lateral recess and neural foraminal narrowing at this level. 3. Additional foraminal narrowing at L5-S1 on the right. Impression dictated by: Danie Rosario Jr., M.D.06/28/2021 4:41 PM Dictation Location: [facility]--06 Transcribed By: PWS 06/28/21 1641 Dictated By: Danie Rosario Jr, MD 06/28/21 1631 Signed By: 06/28/21 1641 Normal [facility] XR lumbar spine 2-3V*on 05-17 XR lumbar spine 2-3V* [place] [address] XRay Report Signed Patient: Ben Aaron MR#: [id number] 735 : 1975 Acct:[id number] Age/Sex: 45 / M ADM Date: 06/06/21 Loc: ER Room: Type: [facility] ER Attending Dr: Ordering Provider: Demarcus Bender DO Date of Service: 06/06/21 XR/XR lumbar spine 2-3V*: Back Pain/Injury Copies to: Demarcus Bender DO LUMBAR SPINE - 2 views COMPARISON: 08/09/2020 CLINICAL DATA: Low back pain after patient bent over work. History of renal cancer. AP and lateral views were obtained. No fractures or displacement are identified. There is no disproportionate disc space narrowing. There is minor endplate spurring and mild lower lumbar facet hypertrophy. The SI joints are intact. No paraspinal soft tissue abnormalities are noted. XR/XR lumbar spine 2-3V* IMPRESSION: MILD DEGENERATIVE CHANGES. NO ACUTE BONY FINDINGS. Impression dictated by: Raquel Azevedo M.D.06/06/2021 5:43 PM Dictation Location: [facility]-02 Transcribed By: DONNA 06/06/21 1743 Dictated By: Raquel Azevedo MD 06/06/211741 Signed By: 06/06/21 174 Normal [facility] LUMB SP COMP W FLEX/EXT 6 VW Son 08-06-2020 LUMB SP COMP W FLEX/EXT 6 VWS STUDY: LUMB SP COMP W FLEX/EXT 6 VWS ; 08/06/2020 8:26 am INDICATION: PAIN. COMPARISON: None. ACCESSION NUMBER(S): [id number] ORDERING CLINICIAN: Giancarlo Cardozo FINDINGS: No fracture or subluxation of the lumbar spine. Mild multilevel disc height loss with scattered small endplate osteophytes. Multilevel facet arthropathy. Slight retrolisthesis L2-3 and L3-4. No pars defects. No instability on flexion or extension. IMPRESSION: Mild to moderate degenerative changes of the lumbar spine without instability. Normal [facility] Basic Metabolic Panlon 05-17 Anion gap [Moles/Vol] 10 mmol/L Normal 9-18 [facility] Comment on above: Performed By: #### C BC, BMP #### [facility] [employer] [address] [place], [place] [address] Calcium [Mass/Vol] 9.4 mg/dL Normal 8.5-10.2 [facility] Comment on above: Performed By: #### C RICHA, BMP #### [facility] [address] [place], [place] [address] Chloride [Moles/Vol] 105 mmol/L Normal 97-105 [facility] Comment on above: Performed By: #### C RICHA, BMP #### [facility] [employer] [address] [place], [place] [address] CO2 [Moles/Vol] 25 mmol/L Normal 22-30 [facility] Comment on above: Performed By: #### C BC, BMP #### [facility] [employer] [address] [place], [place] [address] Creatinine [Mass/Vol] 1.11 mg/dL Normal 0.73-1.22 [facility] Comment on above: Performed By: #### C BC, BMP #### [facility] [address] [place], [place] [address] eGFR- Amer. >60 Normal [facility] Comment on above: Performed By: #### C RICHA, BMP #### [facility] [address] [place], [place] [address] eGFR-All Other Races >60 Normal [facility] Comment on above: Result Comment: eGFR (Estimated GFR) Units of measure: mL/min/1.73 meters squared eGFR is derived from the reexpressed MDRD Study equation using the following parameters: serum creatinine, age, gender and race. The creatinine assay has been calibrated to be traceable to IDMS. An eGFR <60 mL/min/1.73m2 for >3 months is consistent with chronic kidney disease. Refer to KDOQI guidelines for clinical interpretation. In patients with unstable renal function, e.g. those with acute kidney injury, the eGFR may not accurately reflect actual GFR. Performed By: #### Avel CHAUDHRY, BMP #### [facility] [address] [place], [place] [id number] Glucose [Mass/Vol] 84 mg/dL Normal 74-99 [facility] Comment on above: Result Comment: The [place] Diabetes Association (ADA) provides guidance for cutoff values for fasting glucose and random glucose. The ADA defines fasting as no caloric intake for at least 8 hours. Fasting plasma glucose results between 100 to 125 mg/dL indicate increased risk for diabetes (prediabetes). Fasting plasma glucose results greater than or equal to 126 mg/dL meet the criteria for diagnosis of diabetes. In the absence of unequivocal hyperglycemia, results should be confirmed by repeat testing. In a patient with classic symptoms of hyperglycemia or hyperglycemic crisis, random plasma glucose results greater than or equal to 200 mg/dL meet the criteria for diagnosis of diabetes. Reference: Standards of Medical Care in Diabetes 2016, [place] [employer] Association. Diabetes Care. 2016.39(Suppl 1). Performed By: #### C RICHA, BMP #### [facility] [address] [place], [place] [address] Potassium [Moles/Vol] 4.5 mmol/L Normal 3.7-5.1 [facility] Comment on above: Performed By: #### C BC, BMP #### [facility] [address] [address] Sodium [Moles/Vol] 140 mmol/L Normal 136-144 [facility] Comment on above: Performed By: #### C BC, BMP #### [place] [address] [address] [phone] Urea nitrogen [Mass/Vol] 17 mg/dL Normal 9-24 [facility] Comment on above: Performed By: #### C BC, BMP #### [address] [address] [place] [address] CBCon 05-17-2020 Absolute nRBC <0.01 Normal <0.01 [facility] Comment on above: Performed By: #### C BC, BMP #### [place] [phone] Erythrocyte distribution width (RBC) [Ratio] 12.1 % Normal 11.5-15.0 [facility] Comment on above: Performed By: #### C BC, BMP #### [place] [phone] Hematocrit (Bld) [Volume fraction] 46.6 % Normal 39.0-51.0 [facility] Comment on above: Performed By: #### C BC, BMP #### [address] [address] [place] [phone] Hemoglobin (Bld) [Mass/Vol] 15.2 g/dL Normal 13.0-17.0 [facility] Comment on above: Performed By: #### C BC, BMP #### [facility] [address] [phone] MCH 29.6 pG Normal 26.0-34.0 [facility] Comment on above: Performed By: #### C BC, BMP #### [address] [address] [place] [address] MCHC (RBC) [Mass/Vol] 32.6 g/dL Normal 30.5-36.0 [facility] Comment on above: Performed By: #### Avel CHAUDHRY, BMP #### [address] [place] [address] MCV (RBC) [Entitic vol] 90.7 fL Normal 80.0-100.0 [facility] Comment on above: Performed By: #### Avel CHAUDHRY, BMP #### [address] [place] [address] [place] [address] Platelet mean volume (Bld) [Entitic vol] 10.1 fL Normal 9.0-12.7 [facility] Comment on above: Performed By: #### Avel CHAUDHRY, BMP #### [place] [address] Platelets (Bld) [#/Vol] 298 10*3/uL Normal 150-400 [facility] Comment on above: Performed By: #### Avel CHAUDHRY, BMP #### [place] [address] RBC (Bld) [#/Vol] 5.14 10*6/uL Normal 4.20-6.00 [facility] Comment on above: Performed By: #### Avel CHAUDHRY, BMP #### [place] [address] WBC (Bld) [#/Vol] 11.64 10*3/uL High 3.70-11.00 [facility] Comment on above: Performed By: #### Avel CHAUDHRY, BMP #### [place] [address] CNOVon 05-17-2020 CNOV Office Visit (UROLMN ) BEN AARON ([id number]) 1975 M Date Time Provider Department 05/17/20 9:15 AM CHYNA HANNA During your visit today, we recorded the following information about you: Weight Height 113.4 kg 1.829 m Shelbi Sotelo APRN.SENIOR FOREMAN 05/17/2020 9:26 AM Signed REASON FOR VISIT: Follow up for renal mass HPI: Ben Aaron is a 44 year old male with history of right renal mass who presents for follow-up. He is s/p right robotic partial nephrectomy on 11/27/2019. Last OV 12/15/[address] Jo-Ann Messer. Plan of care: f/u in 6 months with labs and imaging. CT kidney and CXR today without evidence of recurrence or metastatic disease. Interval Hx: Overall, he reports doing well. No interval changes in health since last OV. Admits to chronic back pain- has visit locally to address lumbar disc issues. No bothersome urinary symptoms. No dysuria or gross hematuria. No unintentional weight loss, abdominal pain, or fatigue. RCC Snapshot: Age at diagnosis: 44 Gender: male Date of radiographic diagnosis: 10/11/2019 Preop GFR: >60 Clinical: Tumor size: 3.2 x 3.8 cm Pathological: Date of surgery: 11/27/2019 Stage: pT1a Histology: Chromophobe renal cell carcinoma Presence of additional histologic features: None Surgical margin status: Negative Surgery: Robotic partial Post-op complications: No Subsequent Treatment: N/A Recurrence: No On dialysis or kidney transplant: No PATHOLOGY: FINAL DIAGNOSIS Kidney, right, partial nephrectomy: - Renal cell carcinoma, chromophobe type. ? LABS: Creatinine Date Value Ref Range Status 11/29/2019 1.29 (H) 0.73 - 1.22 mg/dL Final 11/28/2019 1.35 (H) 0.73 - 1.22 mg/dL Final 11/27/2019 1.39 (H) 0.73 - 1.22 mg/dL Final 11/24/2019 1.00 0.73 - 1.22 mg/dL Final No results found for: PSA URINALYSIS: Specific [place], Ur Date Value Ref Range Status 11/24/2019 1.010 1.005 - 1.030 Final Glucose, Urine Date Value Ref Range Status 11/24/2019 Negative Negative mg/dL Final Bilirubin, Urine Date Value Ref Range Status 11/24/2019 Negative Negative Final Ketones, Urine Date Value Ref Range Status 11/24/2019 Negative Negative Final Hemoglobin/Blood,Ur Date Value Ref Range Status 11/24/2019 Negative Negative Final Protein, Urine Date Value Ref Range Status 11/24/2019 Negative Negative Final Nitrites Date Value Ref Range Status 11/24/2019 Negative Negative Final WBC, Urine Date Value Ref Range Status 11/24/2019 0-5 0 - 5 /HPF Final IMAGING: XR CHEST 2V FRONTAL/LAT 05/17/2020 IMPRESSION: No acute radiographic abnormality. CT KIDNEY WO/W IVCON 05/17/2020 IMPRESSION: NO RECURRENT OR METASTATIC DISEASE. ALLERGIES: ALLERGIES No Known Allergies MEDICATIONS: Current Outpatient Medications Medication Sig - ALPRAZolam (XANAX) 0.5 mg tablet Take 0.5 mg by mouth at bedtime as needed. - mirtazapine (REMERON) 30 mg tablet Take 30 mg by mouth once daily. No current facility-administered medications for this visit. HISTORIES No past medical history on file. No past surgical history on file. Social History Tobacco Use - Smoking status: Current Every Day Smoker Packs/day: 1.00 Years: 18.00 Pack years: 18.00 Types: Cigarettes - Smokeless tobacco: Never Used Vaping Use - Vaping Use: Former Substance Use Topics - Alcohol use: Yes - Drug use: Never No family history on file. REVIEW OF SYSTEMS General: No weight loss, malaise or fevers., SEE HPI Genitourinary: No history of dysuria, frequency or incontinence The remainder of the ROS was reviewed and negative. PHYSICAL EXAMINATION General appearance: Well appearing, alert, in no acute distress and well-hydrated, well nourished Lungs: Clear to auscultation no wheezing or rhonchi Heart: RRR without murmur, gallop, or rubs. No ectopy Abdomen: Normal abdominal exam, Abdomen soft, non-tender. Bowel sounds normal. No masses, organomegaly, Negative CVA tenderness Genitourinary: deferred PROBLEMS: 1. 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 H/O partial nephrectomy - ICD9: V15.29, ICD10: Z90.5 3. Malignant neoplasm of kidney excluding renal pelvis, unspecified laterality (HCC) - ICD9: 189.0, ICD10: C64.9 IMPRESSION: This is a 44 year old male with history of right renal mass s/p right robotic partial nephrectomy on 11/27/2019. Final pathology revealed RCC chromophobe type. CT kidney and CXR today without evidence of recurrence or metastatic disease. PLAN: -RTC in 1 year with CXR, CT abd w/ IV Con and CMP. Discussed with Dr. Hanna. Shelbi Sotelo, MACHINE FEEDER FLOORPERSON.SENIOR FOREMAN Referring Provider: SELF [[id number]] Allergies As of Date: 05/17/2020 (No Known Allergies) Date Reviewed: 05/17/2020 Reviewed by: Shelbi (Ajay) Deepak - Fully Assessed Reason for Visit: Follow Up (more content not included)... Normal [facility] CT KIDNEY WO/W IVCONon 05-17 CT KIDNEY WO/W IVCON * * *Final Report* * * DATE OF EXAM: May 17 2020 7:53AM [facility] 0546 - CT KIDNEY WO/W IVCON / PROCEDURE REASON: Malignant neoplasm of right kidney, except renal pelvis (HCC) * * * * Physician Interpretation * * * * EXAMINATION: CT ABDOMEN (KIDNEY) WITHOUT AND WITH IV CONTRAST CLINICAL HISTORY: Robotic RIGHT-sided partial nephrectomy for renal cell carcinoma 11/2019 TECHNIQUE: Spiral imaging in three phases through the kidneys and including the entire abdomen was performed utilizing IV contrast only. No oral contrast was given. Arterial phase MIP, and nephrographic phase oblique coronal and sagittal reformations were created from thin-slice images under physician supervision on the imaging modality workstation. MQ: CTKA_3 Contrast: IV: 120 ml of Omnipaque 350 Oral Contrast: None CT Radiation dose: Integrated dose-length product (DLP) for this visit = 1704 mGy*cm. CT Dose Reduction Employed: Automated exposure control (AEC) COMPARISON: Preresection exam of 10/11/2019 RESULT: Kidneys, adrenals and ureters: Right kidney: * Interval resection of medial upper pole RIGHT renal mass with focal parenchymal loss; no recurrence interval resection of medial upper pole mass; no recurrence * No new mass Left kidney: Normal, without mass or calculus. Abdomen: Liver: Stable, benign-appearing subcentimeter low-attenuation lesion segment Lokesh. Biliary: No bile duct dilation. Cholecystectomy Spleen: No mass. No splenomegaly. Adrenals: No mass Pancreas: No mass or duct dilation GI tract: No dilation or wall thickening. Lymph nodes (other): No abdominal lymphadenopathy. Mesentery/Peritoneum: No ascites or mass. Retroperitoneum: No mass. Vasculature: The celiac axis and SMA are patent. The portal vein and branches, splenic vein, SMV, and hepatic veins are patent. Bones/Soft Tissues: No neoplastic bone disease Lower thorax: No nodules Apartment Coordinator (topogram) images: No additional findings. IMPRESSION: NO RECURRENT OR METASTATIC DISEASE. Hospital Admissions Clerk: ALEX Transcribe Date/Time: May 17 2020 8:18A Dictated by : MATT LEIGH MD This examination was interpreted and the report reviewed and electronically signed by: MATT LEIGH MD on May 17 2020 8:28AM EST [id number] Normal [facility] Urinalysison 05-17-2020 Bilirubin, Urine Negative Normal Negative [facility] Comment on above: Performed By: #### U A #### [facility] [employer] [address] [place] [address] Clarity (U) Clear Normal Clear [facility] Comment on above: Performed By: #### U A #### [facility] [employer] [address] [place] [address] Color (U) Light Yellow Critically abnormal Yellow [facility] Comment on above: Performed By: #### U A #### [facility] [employer] [address] [place] [place] [address] Comments SEE COMMENT Normal [facility] Comment on above: Result Comment: Micr oscopic not warranted Performed By: #### U A #### [facility] [employer] [address] [place] [address] Glucose Ql (U) Negative Normal Negative [facility] Comment on above: Performed By: #### U A #### [facility] [address] [place], [place] [address] Hemoglobin/Blood,Ur Negative Normal Negative [facility] Comment on above: Performed By: #### U A #### [facility] [address] [place], [place] [address] Ketones Ql (U) Negative Normal Negative [facility] Comment on above: Performed By: #### U A #### [place] [address] [place] [address] Leukest Negative Normal Negative [facility] Comment on above: Performed By: #### U A #### [place] [address] [place] [address] Nitrite Ql (U) Negative Normal Negative [facility] Comment on above: Performed By: #### U A #### [place] [address] pH (U) 6.0 [pH] Normal 5.0-8.0 [facility] Comment on above: Performed By: #### U A #### [address] [place] [address] [place] [address] Protein, Urine Negative Normal Negative [facility] Comment on above: Performed By: #### U A #### [address] [place], [place] [address] Specific [place], Ur >1.045 High 1.005-1.030 [facility] Comment on above: Performed By: #### U A #### [address] [place], [place] [address] Urine Kenny Comment SEE COMMENT Normal [facility] Comment on above: Result Comment: N/A Performed By: #### U A #### [address] [place], [place] [address] Urobilinogen (U) [Mass/Vol] Negative Normal Negative [facility] Comment on above: Performed By: #### U A #### [facility] [address] [place] [address] XR CHEST 2V FRONTAL/LATon XR CHEST 2V FRONTAL/LAT * * *Final Report* * * DATE OF EXAM: May 17 2020 8:03AM BEATRIZ [id number] - XR CHEST 2V FRONTAL/LAT / PROCEDURE REASON: Malignant neoplasm of right kidney, except renal pelvis (HCC) * * * * Physician Interpretation * * * * EXAMINATION: CHEST RADIOGRAPH (2 VIEW FRONTAL and LATERAL) CLINICAL HISTORY: Malignant neoplasm of right kidney, except renal pelvis (HCC) MQ: XC2_6 EXAM DATE/TIME: 05/17/2020 8:03 AM COMPARISON: No relevant prior studies available. RESULT: Lines, tubes, and devices: None. Lungs and pleura: No consolidation. No lung mass. No pleural effusion. No pneumothorax. Cardiomediastinal silhouette: Normal cardiomediastinal silhouette. Bones and soft tissues: Unremarkable. IMPRESSION: No acute radiographic abnormality. Hospital Admissions Clerk: PSCB Transcribe Date/Time: May 17 2020 8:26A Dictated by : WIL CANALES MD This examination was interpreted and the report reviewed and electronically signed by: WIL CANALES MD on May 17 2020 8:27AM EST [id number] Normal [facility] CT ABDOMEN W W/O IV CONTRAST on 10-11-2019 CT ABDOMEN W W/O IV CONTRAST Patient Name: JOSUE AARON STUDY: CT ABDOMEN W W/O IV CONTRAST; 10/11/2019 11:39 am INDICATION: Cystic kidney disease, unspecified. COMPARISON: None ACCESSION NUMBER(S): [id number] ORDERING CLINICIAN: NORBERT HERMOSILLO TECHNIQUE: CT Kidney protocol CT of the abdomen from the lung bases to the iliac crests before and in two phases after the uneventful administration of intravenous (90 mL Isovue 370) contrast. No oral contrast FINDINGS: RIGHT KIDNEY AND INCLUDED URETER: Radiodense stone: Negative Hydronephrosis: Negative Solid mass: POSITIVE. 32 mm craniocaudal, 20 mm anteroposterior (sagittal corticomedullary phase image 54/146), 34 mm transverse (same phase coronal image 112/200) exophytic mass medially just above the central sinus fat has measurable, robust enhancement, as I have annotated with a region of interest at multiple locations in all three axial phases. It is contained within the perirenal fat. It abuts but does not invade the adjacent psoas muscle. There is no invasion of the main vein. The mass has no fat density Enhancement: Normal, uniform, enhancement. No infarct or CT evidence of acute pyelonephritis or obstructive uropathy. Cyst/s: Negative LEFT KIDNEY AND INCLUDED URETER: Radiodense stone: Negative Hydronephrosis: Negative Solid mass: Negative. No solid, enhancing or otherwise suspect mass Enhancement: Normal, uniform, enhancement. No infarct or CT evidence of acute pyelonephritis or obstructive uropathy. Cyst/s: Negative LIVER: Normal except for a solitary subcentimeter too small to characterize but likely benign low-attenuation lesion in the medial segment left lobe ventrally. No enlargement or evidence of cirrhosis or fatty change. No mass or other suspect lesion. SPLEEN: Normal. No enlargement, mass or evidence of splenic vein thrombosis. PANCREAS: Normal. No CT evidence of acute or chronic pancreatitis. No duct dilation. No mass. GALLBLADDER: Surgically absent. BILE DUCTS: Normal. No biliary duct dilation. ADRENAL GLANDS: Normal. No nodule or mass. LYMPH NODES: No adenopathy, intraperitoneal, retroperitoneal, pelvic or otherwise INCLUDED BOWEL: Normal. No small bowel dilation or any other sign of small bowel obstruction. Included colon not dilated or inflamed. STOMACH / DUODENUM: Grossly normal by CT which has limited sensitivity and specificity for the stomach and duodenum. INCLUDED RETROPERITONEUM: Normal. No acute hemorrhage or inflammatory change. Lymph nodes in a separate dedicated section. INCLUDED OMENTUM, MESENTERY AND PERITONEAL SPACES: Free intraperitoneal air: Negative Free intraperitoneal fluid: Negative Abscess: Negative Other: n/a VASCULATURE: No abdominal aortic or iliac artery aneurysm. No high grade stenosis of the major abdominal aortic branch vessels. Portal venous system patent. INCLUDED ABDOMINAL WALL: Hernia: Negative Other: No acute or contributory abnormality LOWER CHEST: No acute airspace disease BONES: No acute findings IMPRESSION: 32 MM ENHANCING RIGHT RENAL NEOPLASM DETAILED ABOVE. IT IS LIKELY AMENABLE TO PERCUTANEOUS BIOPSY, BUT A UROLOGY OPINION MUST BE OBTAINED FIRST NO OTHER FOCAL RENAL LESION ON EITHER SIDE, CYSTIC, SOLID OR OTHERWISE NOTING THERE ARE BOTH BENIGN (FOR EXAMPLE ONCOCYTOMA BUT NOT ANGIOMYOLIPOMA THERE IS NO FAT DENSITY WITHIN IT) AND MALIGNANT (RENAL CELL CARCINOMA) POTENTIAL ETIOLOGIES, THERE IS NO METASTATIC DISEASE IN THE ABDOMEN Electronically signed by: MATT LYNN MD [facility] Vital Signs Date Time Vital Sign Value Performing Clinician Ardenolga swathi 06-06-2021 16:27-0400 Body height 182.88 cm DO Demarcus Tupa Work Phone: [facility] 06-06-2021 16:27-0400 Body mass index (BMI) [Ratio] 36.1 kg/m2 DO Demarcus Tupa Work Phone: [facility] 06-06-2021 16:27-0400 Body temperature 97.5 [degF] DO Demarcus Tupa Work Phone: [facility] 06-06-2021 16:27-0400 Body weight 120.7 kg DO Demarcus Tupa Work Phone: [facility] 06-06-2021 16:27-0400 Diastolic blood pressure 72 mm[Hg] DO Demarcus Tupa Work Phone: [facility] 06-06-2021 16:27-0400 Heart rate 71 /min DO Demarcus Tupa Work Phone: [facility] 06-06-2021 16:27-0400 Respiratory rate 18 /min DO Demarcus Tupa Work Phone: [facility] 06-06-2021 16:27-0400 SaO2% (BldA) [Mass fraction] 96 % DO Demarcus Tupa Work Phone: [facility] 06-06-2021 16:27-0400 Systolic blood pressure 138 mm[Hg] DO Demarcus Tupa Work Phone: [facility] Encounters Encounter Date Encounter Type Care Provider Facility Start: 04-24-2023 End: 04-24-2023 Emergency department patient visit Josue Valderrama Facility:[facility] Start: 03-25-2022 ambulatory Jaleel Nair Facility:[facility] Start: 03-25-2022 End: 03-25-2022 ambulatory MD Norbert Hermosillo Work Phone: [facility] Work Phone: Start: 03-25-2022 End: 03-25-2022 Discharged Recurring MD Norbert Hermosillo Work Phone: [facility] Start: 03-09-2022 Encounter for genera l adult medical examination without abnormal findings DR NORBERT HERMOSILLO [facility] Start: 03-04-2022 End: 03-05-[address] NORBERT HERMOSILLO Facility:[facility] Start: 03-04-2022 End: 03-05-2022 Encounter for general adult medical examination without abnormal findings DR NORBERT HERMOSILLO Facility:[facility] Start: 02-26-2022 End: 02-26-2022 ambulatory Angi A Blades Facility:[facility] Start: 02-26-2022 End: 02-26-2022 Patient encounter procedure MD Norbert Hermosillo Work Phone: [facility] [place] Work Phone: Start: 02-24-2022 End: 02-24-2022 ambulatory Angi Blades Other [employer] Other Start: 02-24-2022 Telephone encounter Angi Blades F [facility] Start: 02-19-2022 End: 02-19-2022 ambulatory Angi Blades Other [employer] Other Start: 02-19-2022 Telephone encounter Angi Blades F [facility] [employer] Start: 01-26-2022 End: 01-26-2022 ambulatory Neal Curtis Other [employer] Other Start: 01-26-2022 Office outpatient vi sit 25 minutes Neal Curtis [facility] Start: 01-23-2022 Registered Recurring MD Dayana Hermosillo Work Phone: [facility] [address] Start: 12-24-2021 End: 12-24-2021 ambulatory Neal Tother Other [employer] Other Start: 12-24-2021 Office outpatient vi sit 15 minutes Neal Felter [facility] Start: 12-01-2021 (Procedure) Short Neal Curtis [facility] Start: 12-01-2021 End: 12-01-2021 ambulatory Neal Tother Other [employer] Other Start: 11-03-2021 (Procedure) Forest Curtis [facility] Start: 11-03-2021 End: 11-03-2021 ambulatory Neal Tother Other [employer] Other Start: 10-29-2021 End: 10-29-2021 ambulatory Jaleel Nair Facility:[facility] Start: 10-21-2021 End: 10-21-2021 ambulatory Neal Tother Other [employer] Other Start: 10-21-2021 Office outpatient vi sit 25 minutes Neal Felter [facility] Start: 10-06-2021 (Procedure) Forest Curtis [facility] Start: 10-06-2021 End: 10-06-2021 ambulatory Neal Felter Other [employer] Other Start: 09-10-2021 End: 09-10-2021 ambulatory Neal Felter Other [employer] Other Start: 09-10-2021 Office outpatient vi sit 25 minutes Neal Felter [facility] Start: 09-03-2021 (Procedure) Forest Curtis [facility] Start: 09-03-2021 End: 09-03-2021 ambulatory Neal Felter Other [employer] Other Start: 09-03-2021 Telephone encounter Neal SAENZ [facility] Start: 08-25-2021 End: 08-25-2021 ambulatory Neal Curtis Other [employer] Other Start: 08-25-2021 Telephone encounter Neal Ever [facility] Start: 08-21-2021 End: 08-21-2021 ambulatory Neal Curtis Other [employer] Other Start: 08-21-2021 Office outpatient vi sit 25 minutes Neal Curtis [facility] Start: 06-28-2021 End: 06-28-2021 ambulatory Jaleel Nair Facility:[facility] Start: 06-28-2021 End: 06-28-2021 Patient encounter procedure DO Demarcus Yulia Work Phone: [facility] [place] Start: 06-06-2021 End: 06-06-2021 Emergency department patient visit Demarcus Bender Facility:[facility] Start: 06-06-2021 End: 06-06-2021 Emergency department patient visit DO Demarcus Tualfredo Work Phone: [facility] Start: 01-16-2016 End: 01-17-2016 Ambulatory RODRIGO LUCERO Facility:[facility] Procedures Date Procedure Procedure Detail Performing Clinician Start: 03-04-[address] DAYANA HERMOSILLO Comment on above: Performed By: #### P [facility] #### [facility] [address] [place] [address] Dr. Shawn Clay Start: 02-26-2022 MR lumbar spine wo con MD Norbert Hermosillo Work Phone: Start: 06-28-2021 MRI of lumbar spine with contrast DO Demarcus Bender Work Phone: Start: 06-06-2021 X-ray of lumbar spin e, two or three views DO Demarcus Bender Work Phone: Plan of Treatment Date Care Activity Detail Author Patient Education Low Back Pain ED [facility] Work Phone: Patient referral [facility] Work Phone: Payers Date Payer Category Payer Unknown [id number] 2021 Self-pay [id number] 2021 Unknown [id number] 2021 Worker's Compensation [id number] 1973 Unknown [id number] 2.16.84 [id number] 1975 Unknown [id number] 2.16.8 [id number] 1959 Unknown [id number] 1961 Unknown [id number] [facility] [id number] Private Health Insurance [id number] Private Health Insurance [id number] Unknown [id number] 2.16.84 [id number] Unknown [id number] 2.16.8 [id number] Unknown [id number] 2.16.8 [id number] Unknown [id number] 2.16.8 [id number] Unknown [id number] 2.16.8 [id number] Unknown [id number] 2.16.8 [id number] Social History Date Type Detail Facility Start: 06-06-2021 End: 06-06-2021 Tobacco smoking status NHIS Smoker (finding) [facility] Start: 1975 Sex Assigned At Male F [facility] Sex Assigned At Sex Assigned At Bir th [employer] Other Clinical Notes 05-17-2020 to 02-18-2022 Note Date & Type Note Facility 02-18-2022 Reason for referral (narrative) Diagnosis 1 Other intervertebral disc displacement, lumbar region (M51.26) Referral Organization [facility] Ortho pedics Referring Provider First Name Neal Referring Provider Last Name Ever Referring Provider Specialty Pain Medicine Referred Organization [facility] urosurgery Referred Provider Angi Fatima Referred Address [address] [address],[place], [place],[address] Referred Provider Specialty Neurological Surgery Referral Priority Routine Referral Appointment Date 2022-02-18 General Notes Zoey Ruff 03:21:57 PM >sending p2p at this time, patient was seen by Dr Gtz in July Zoey Ruff 02/03/2022 07:49:07 AM >Referral was received, the Neurosurgery office is awaiting the [facility] approval before scheduling patient Zoey Ruff 02/10/2022 10:14:31 AM >office still awaiting [facility] approval letter Zoey Ruff 02/17/2022 02:38:34 PM >Patient now scheduled with Dr Fatima 02/18/22 Gaye Cook 02/19/2022 07:38:16 AM >Sent telephone encounter to referring physician to let them know that the consult letter is ready for their review [employer] Other 12-12-2022 Evaluation note* Encounter Date Diagnosis Assessment Notes Treatment Notes Treatment Clinical Notes Jan, Strain of muscle, fascia and tendon of lower back, initial encounter (ICD-10 - S39.012A) Jan, Other intervertebral disc displacement, lumbar region (ICD-10 - M51.26) Patient appears to be having severe muscle spasms as well as progressing pain radiating into his bilateral lower extremities. Given his failure of conservative treatment as well as progressive symptoms, along with previous evaluation with neurosurgery, I would like to refer the patient back for further neurosurgical evaluation. In the meantime, I will trial the patient on Gabapentin 300 MG three times daily. Patient was provided with a titration schedule as instructed to take this as tolerated. Additionally, given the severity of his pain, I will prescribe a short term supply of Tramadol 50 mg to be taken for severe breakthrough pain. OARRS was processed and reviewed, no discrepencies. Risks and side effects of these medications was discussed in detail with the patient who voiced understanding. Anatomy of spine discussed in detail with patient in regards to patients condition. Jan, Other Above note writ ten by Landon Mosley MA, Screening Tech. Edited and approved by Dr. Neal Curtis MD. [employer] Other 11-09-2022 Evaluation note* Encounter Date Diagnosis Assessment Notes Treatment Notes Treatment Clinical Notes Dec, Strain of muscle, fascia and tendon of lower back, initial encounter (ICD-10 - S39.012A) Dec, Other intervertebral disc displacement, lumbar region (ICD-10 - M51.26) Patient is voicing minimal complaints of pain at this time. He attributes this to a recent bilateral lumbar facet radiofrequency ablation. We will continue to monitor his symptoms in this region. Anatomy of spine discussed in detail with patient in regard to patients condition. Overall, patient believes their pain is reasonably well controlled, and he is in agreement with our treatment plan. We will follow up with him in six months, sooner if needed. Dec, Other Above note writ ten by Jayro Rivas LPN, Screening Tech. Edited and approved by Dr. eNal Curtis MD. [employer] Other 09-06-2022 Evaluation note* Encounter Date Diagnosis Assessment Notes Treatment Notes Treatment Clinical Notes Oct, Strain of muscle, fascia and tendon of lower back, initial encounter (ICD-10 - S39.012A) Oct, Other intervertebral disc displacement, lumbar region (ICD-10 - M51.26) Patients primary complaint today continues to be low back pain, consistent with the facet region upon exam, which is supported by previous imaging. Based on location of pain and exam findings, patient is a candidate for bilateral lumbar facet medial branch blocks which we will proceed with. Risks and benefits of procedure explained to patient; patient verbalizes understanding. We will call patient to schedule once we have approval from [facility]. It was further explained should this provide significant short term relief we will proceed with a radiofrequency ablation. Anatomy of spine discussed in detail with patient in regard to patients condition. Oct, Other Above note writ ten by Landon Mosley MA, Screening Tech. Edited and approved by Dr. Neal Curtis MD. [employer] Other 07-27-2022 Evaluation note* Encounter Date Diagnosis Assessment Notes Treatment Notes Treatment Clinical Notes Aug, Strain of muscle, fascia and tendon of lower back, initial encounter (ICD-10 - S39.012A) Aug, Other intervertebral disc displacement, lumbar region (ICD-10 - M51.26) We discussed treatment options for the patient's persistent low back pain. He shows notable pain consistent with the sacroiliac region upon exam. He has failed multiple previous conservative treatment options. Based on location of pain and exam findings, patient is a candidate for bilateral sacroiliac joint injections which we will proceed with. Risks and benefits of procedure explained to patient; patient verbalizes understanding. We will call patient to schedule once we have approval from [facility]. Additionally, we discussed referring the patient to physical therapy however he would like to discuss this with Dr. Nair. Patient will continue Flexeril as needed. Anatomy of spine discussed in detail with patient in regard to patients condition. Aug, Other Above note writ ten by Landon Mosley MA, Screening Tech. Edited and approved by Dr. Neal Curtis MD. [employer] Other 07-07-2022 Evaluation note* Encounter Date Diagnosis Assessment Notes Treatment Notes Treatment Clinical Notes Aug, Strain of muscle, fascia and tendon of lower back, initial encounter (ICD-10 - S39.012A) Aug, Other intervertebral disc displacement, lumbar region (ICD-10 - M51.26) We discussed treatment options for the patient's persistent low back pain. He shows notable pain consistent with the facet region upon exam which is supported by previous imaging. He has failed multiple previous conservative treatment options. Based on location of pain and exam findings, patient is a candidate for bilateral lumbar facet joint injections under fluoroscopic guidance. Risks and benefits of procedure explained to patient; patient verbalizes understanding. We will call patient to schedule once we have clarification from [facility]. We discussed continuing Ibuprofen as needed. Anatomy of spine discussed in detail with patient in regard to patients condition. Aug, Other Above note writ ten by Jayro Rivas LPN, Screening Tech. Edited and approved by Dr. Neal Curtis MD. [employer] Other 04-02-2021 NotePatient Outreach (UROLMN) BEN AARON ([id number]) 1975 M Date Time Provider Department 05/17/20 CHYNA HANNA During your visit today, we recorded the following information about you: Allergies As of Date: 05/17/2020 (No Known Allergies) Date Reviewed: 05/17/2020 Reviewed by: Shelbi Jurado) Deepak - Fully Assessed Visit Diagnosis:Screening for genitourinary condition [Z13.89] Order(s):URINALYSIS, DIPSTICK ONLY [SQUA] Order #: [id number]. 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 Author Type: Nurse Practitioner Type: Progress Notes Filed: 05/17/2020 9:26 AM Note Text: REASON FOR VISIT: Follow up for renal mass HPI: Ben Aaron is a 44 year old male with history of right renal mass who presents for follow-up. He is s/p right robotic partial nephrectomy on 11/27/2019. Last OV 12/15/[address] Jo-Ann Messer. Plan of care: f/u in 6 months with labs and imaging. CT kidney and CXR today without evidence of recurrence or metastatic disease. Interval Hx: Overall, he reports doing well. No interval changes in health since last OV. Admits to chronic back pain- has visit locally to address lumbar disc issues. No bothersome urinary symptoms. No dysuria or gross hematuria. No unintentional weight loss, abdominal pain, or fatigue. RCC Snapshot: Age at diagnosis: 44 Gender: male Date of radiographic diagnosis: 10/11/2019 Preop GFR: >60 Clinical: Tumor size: 3.2 x 3.8 cm Pathological: Date of surgery: 11/27/2019 Stage: pT1a Histology: Chromophobe renal cell carcinoma Presence of additional histologic features: None Surgical margin status: Negative Surgery: Robotic partial Post-op complications: No Subsequent Treatment: N/A Recurrence: No On dialysis or kidney transplant: No PATHOLOGY: FINAL DIAGNOSIS Kidney, right, partial nephrectomy: - Renal cell carcinoma, chromophobe type. ? LABS: Creatinine Date Value Ref Range Status 11/29/2019 1.29 (H) 0.73 - 1.22 mg/dL Final 11/28/2019 1.35 (H) 0.73 - 1.22 mg/dL Final 11/27/2019 1.39 (H) 0.73 - 1.22 mg/dL Final 11/24/2019 1.00 0.73 - 1.22 mg/dL Final No results found for: PSA URINALYSIS: Specific [place], Ur Date Value Ref Range Status 11/24/2019 1.010 1.005 - 1.030 Final Glucose, Urine Date Value Ref Range Status 11/24/2019 Negative Negative mg/dL Final Bilirubin, Urine Date Value Ref Range Status 11/24/2019 Negative Negative Final Ketones, Urine Date Value Ref Range Status 11/24/2019 Negative Negative Final Hemoglobin/Blood,Ur Date Value Ref Range Status 11/24/2019 Negative Negative Final Protein, Urine Date Value Ref Range Status 11/24/2019 Negative Negative Final Nitrites Date Value Ref Range Status 11/24/2019 Negative Negative Final WBC, Urine Date Value Ref Range Status 11/24/2019 0-5 0 - 5 /HPF Final IMAGING: XR CHEST 2V FRONTAL/LAT 05/17/2020 IMPRESSION: No acute radiographic abnormality. CT KIDNEY WO/W IVCON 05/17/2020 IMPRESSION: NO RECURRENT OR METASTATIC DISEASE. ALLERGIES: ALLERGIES No Known Allergies MEDICATIONS: Current Outpatient Medications Medication Sig - ALPRAZolam (XANAX) 0.5 mg tablet Take 0.5 mg by mouth at bedtime as needed. - mirtazapine (REMERON) 30 mg tablet Take 30 mg by mouth once daily. No current facility-administered medications for this visit. HISTORIES No past medical history on file. No past surgical history on file. Social History Tobacco Use - Smoking status: Current Every Day Smoker Packs/day: 1.00 Years: 18.00 Pack years: 18.00 Types: Cigarettes - Smokeless tobacco: Never Used Vaping Use - Vaping Use: Former Substance Use Topics - Alcohol use: Yes - Drug use: Never No family history on file. REVIEW OF SYSTEMS General: No weight loss, malaise or fevers., SEE HPI Genitourinary: No history of dysuria, frequency or incontinence The remainder of the ROS was reviewed and negative. PHYSICAL EXAMINATION General appearance: Well appearing, alert, in no acute distress and well-hydrated, well nourished Lungs: Clear to auscultation no wheezing or rhonchi Heart: RRR without murmur, gallop, or rubs. No ectopy Abdomen: Normal abdominal exam, Abdomen soft, non-tender. Bowel sounds normal. No masses, organomegaly, Negative CVA tenderness Genitourinary: deferred PROBLEMS: 1. 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 H/O partial nephrectomy - ICD9: V15.29, ICD10: Z90.5 3. Malignant neoplasm of kidney excluding renal pelvis, unspecified laterality (HCC) - ICD9: 189.0, ICD10: C64.9 IMPRESSION: This is a 44 year old male with history of right renal mass s/p right robotic partial nephrectomy on 11/27/2019. Final pathology revealed RCC chromophobe type. CT kidney and CXR today without evidence of recurrence or metastatic disease. PLAN: -RTC in 1 year with CXR, CT abd w/ IV Con and CMP. Discussed with Dr. Hanna. Shelbi Sotelo APRN.[facility]04-02-2021 NoteHNO ID: [id number] Author: Mague Casas (Rt) Mery Patterson Service: Radiology Author Type: Embossed Or Impressed Lettering Painter Type: Progress Notes Filed: 05/17/2020 8:07 AM Note Text: Radiology Service Progress Note PATIENT NAME: Ben Aaron DATE OF SERVICE: May 17, 2020 TIME: 8:06 AM PATIENT IDENTITY VERIFICATION COMPLETED USING TWO (2) IDENTIFIERS: Name and Date of confirmed by patient verbally. FALL SCREENING: Has the patient had 2 falls in the last year or 1 fall with injury or currently using an Ambulatory Assistive Device (Walker, Cane, Wheelchair, Crutches, etc.)? No PATIENT GENDER DATA: Male PATIENT RELEVANT IMPLANT DATA REVIEWED: Not Applicable RADIOLOGY DEPARTMENT: General X-ray: Exam(s) Completed: Chest X-Ray PERIPHERAL IV DATA: Not applicable SIGNED BY: RT Saida May 17, 2020 8:06 [facility]04-02-2021 NoteHNO ID: [id number] Author: Emi Casas (CtARLEY Carranza Service: Radiology Author Type: Clinical Embossed Or Impressed Lettering Painter Type: Progress Notes Filed: 05/17/2020 7:52 AM Note Text: Radiology Service Progress Note PATIENT NAME: Ben Aaron DATE OF SERVICE: May 17, 2020 TIME: 7:43 AM PATIENT IDENTITY VERIFICATION COMPLETED USING TWO (2) IDENTIFIERS: Name and Date of confirmed by patient verbally and Name and Date of confirmed by identification band. FALL SCREENING: Has the patient had 2 falls in the last year or 1 fall with injury or currently using an Ambulatory Assistive Device (Walker, Cane, Wheelchair, Crutches, etc.)? No PATIENT GENDER DATA: Male PATIENT RELEVANT IMPLANT DATA REVIEWED: Yes RADIOLOGY DEPARTMENT: CT; Exam(s) Completed: Kidney PERIPHERAL IV DATA: Site assessment: Clean,Dry and Intact, Site disposition Discontinued SIGNED BY: ARLEY Hilton May 17, 2020 7:43 [facility]04-02-2021 NoteHNO ID: [id number] Author: Catalina Parish RN Service: Radiology Author Type: ? Type: Progress Notes Filed: 05/17/2020 7:39 AM Note Text: Radiology Service Progress Note DATE OF SERVICE: May 17, 2020 TIME: 7:32 AM PATIENT WEIGHT: 250LBS PATIENT IDENTITY VERIFICATION COMPLETED USING TWO (2) STANDARD IDENTIFIERS: Name and Date of confirmed by patient verbally and Name and Date of confirmed by identification band. FALL SCREENING: Has the patient had 2 falls in the last year or 1 fall with injury or currently using an Ambulatory Assistive Device (Walker, Cane, Wheelchair, Crutches, etc.)? No PATIENT GENDER DATA: Male ALLERGIES: Reviewed and unchanged CONTRAST ALLERGY: No EXAM: CT -CONTRAST INDUCED NEPHROPATHY RISK FACTORS: Not applicable CREATININE: Creatinine Date Value Ref Range Status 11/29/2019 1.29 (H) 0.73 - 1.22 mg/dL Final 11/28/2019 1.35 (H) 0.73 - 1.22 mg/dL Final 11/27/2019 1.39 (H) 0.73 - 1.22 mg/dL Final eGFR-All Other Races Date Value Ref Range Status 11/29/2019 60 . Final Comment: eGFR (Estimated GFR) Units of measure: mL/min/1.73 meters squared eGFR is derived from the reexpressed MDRD Study equation using the following parameters: serum creatinine, age, gender and race. The creatinine assay has been calibrated to be traceable to IDMS. An eGFR <60 mL/min/1.73m2 for >3 months is consistent with chronic kidney disease. Refer to KDOQI guidelines for clinical interpretation. In patients with unstable renal function, e.g. those with acute kidney injury, the eGFR may not accurately reflect actual GFR. eGFR- Date Value Ref Range Status 11/29/2019 >60 Final P.O.C.T. RESULTS: N/A May 17, 2020 TREATMENT: N/A IV SITE: Ambulatory: A peripheral IV was started in the Left antecubital site with a Angio cath: 20 gauge. and A Saline lock was inserted per protocol IV SITE APPEARANCE: Clean,Dry and Intact SIGNATURE: Catalina Parish RN PATIENT NAME: Ben Aaron DATE: May 17, 2020 TIME: 7:32 [facility] noteNo assessment information availableKindred Hospital [facility] Work Phone: Evaluation noteNo InformationNortMeadville Medical Center [employer] Other Hiskvrg general Narrative - Reported* Type Description Date Medical History hypertension Surgical History nephrectomy-partial Surgical History cholecystectomy Surgical History left arm surgery x5 Surgical History left knee surgery [employer] Other Hisrxhx general Narrative - Reported* Type Description Date Medical History hypertension Medical History kidney disease Medical History gall bladder disease Surgical History nephrectomy-partial Surgical History cholecystectomy Surgical History left arm surgery x5 Surgical History left knee surgery Hospitalization History see surgical Hx [employer] Other Summary Purpose Family History No Family History Records FoundNo Family History Records FoundNo Family History Records FoundNo Family History Records FoundNo Family History Records FoundNo Family History Records FoundNo Family History Records Found Advance Directives No Advanced Directives Records Found Advance Directive Response Recorded Date/ Time Advance Directives No July 12 8 7:24am Advance Directive Response Recorded Date/ Time Advance Directives No July 12 8 6:24am Chief Complaint and Reason for Visit Chief Complaint BACK PAIN Chief Complaint BACK PAIN severe lumbar pain, bilateral radiculopathy Chief Complaint Work Conditioning- L -5 strain, disc displacement Chief Complaint s39.012a Work Conditioning- L-5 strain, disc displacement Additional Source Comments (unrecognized sect ion and content) No Status Records FoundNo Status Records FoundNo Status Records FoundNo Status Records FoundNo Status Records FoundNo Status Records FoundNo Status Records Found INFORMATION SOURCE (unrecogn ized section and content) DATE CREATED AUTHOR 08/11/2017 [facility] DATE CREATED AUTHOR AUTHOR'S ORGANIZ ATION 01/20/2020 [facility] DATE CREATED AUTHOR AUTHOR'S ORGANIZ ATION 08/15/2020 [facility] DATE CREATED AUTHOR AUTHOR'S ORGANIZ ATION 02/25/2021 [facility] DATE CREATED AUTHOR AUTHOR'S ORGANIZ ATION 03/11/2022 [facility] DATE CREATED AUTHOR AUTHOR'S ORGANIZ ATION 03/26/2022 [facility] DATE CREATED AUTHOR AUTHOR'S ORGANIZ ATION 04/25/2023 J[facility] Mcge[facility] Care Teams (unrecognized sec tion and content) Team Status: Inactive Member Role Status Dates Demarcus Bender DO Emergency Provider Active Norbert Hermosillo MD Primary Care Provider Active Team Status: Active Member Role Status Dates Norbert Hermosillo MD Primary Care Provider Active Team Status: Inactive Member Role Status Dates Norbert Hermosillo MD Primary Care Provider Active Jaleel Nair DO [facility] Attending Provider Active Team Status: Active Member Role Status Dates Norbert Hermosillo MD Primary Care Provider Active Jaleel Nair DO [facility] Attending Provider Active Team Status: Inactive Member Role Status Dates Norbert Hermosillo MD Primary Care Provider Active Angi Fatima MD Attending Provider Active Goals (unrecognized section and content) Goals may be documented in a n alternate sectionGoals may be documented in an alternate sectionNo InformationNo InformationNo InformationNo InformationNo InformationNo InformationNo InformationNo InformationNo InformationNo InformationGoals may be documented in an alternate sectionGoals may be documented in an alternate sectionNo InformationNo InformationNo Information REASON FOR VISIT (unrecogniz ed section and content) RECHECK PER DR GTZ FOR F ACET INJECTIONNo InformationLONNIE FACET JOINT INJ L3 L4 L5 /CJNo InformationFOLLOW UP AFTER LONNIE FACET INJLONNIE SI JOINT INJ /CJFOLLOW UP AFTER LONNIE SI INJ LONNIE LUMBAR FACET MBB L3 L4 L5/DSLONNIE LUMBAR FACET RFA L3 L4 L5/DSFOLLOW UP AFTER LONNIE LUMBAR FACET RFAHAVING SPASMSNeurosurgery Office NotesMRI FOR RECORDS PERTAINING TO PATIENTS WHO ARE OR HAVE BEEN ENROLLED IN A CHEMICAL DEPENDENCY/SUBSTANCEABUSE PROGRAM, SOME INFORMATION MAY BE OMITTED. This clinical summary was aggregated from multiple sources. Caution should be exercised in using it in the provision of clinical care. This summary normalizes information from multiple sources, and as a consequence, information in this document may materially change the coding, format and clinical context of patient data. In addition, data may be omitted in some cases. CLINICAL DECISIONS SHOULD BE BASED ON THE PRIMARY CLINICAL RECORDS. [facility] [employer] [facility]. provides no warranty or guarantee of the accuracy or completeness of information in this document.
== END 2024-09-01 16:37 | disposition home or self-care (01) ==
PROVIDERS: PCP Family Medicine; Visit Provider Family Medicine
DX: M23.91 Unspecified internal derangement of right knee (principal); M25.461 Effusion, right knee
CPT/HCPCS: 73562

== ENCOUNTER 2024-11-13 07:54 | Outpatient (OUT) | payer OTHER, SELFPAY ==
--- OUTSIDE RECORDS SUMMARY | 2024-09-27 03:30 | XMS_ITS ---
Author Organization The [facility] in [place] Address [address] [place] [address] Care Team Providers Care Test Development Engineer Name Role Phone Praveen Hermosillo Primary Care Provider Provider, Radiology Unavailable [phone] Encounters Encounter Location Date Provider Diagnosis Radiology [address] [address] 09/27/2024 Radiology Provider Plan Of Treatment No Information Progress Notes * Didier AARON WDOB:1975 (49 yo M)Acc No.[id number]:09/27/2024 UNLOCKED PROGRESS NOTE Progress Note Patient: Didier PAULINO Provider: Ana adiology Provider :1975 A ge:49 Y S ex:Male Date:09/27/2024 External Visit ID:[id number] Address:[address] [place] [address] [id number] Pcp:Praveen Hermosillo Check Out:06:59 AM EST Subjective: * Chief Complaints: * * Active Problem List F41.9 Anxiety Modified On:04/09/2023W/U Status:confirmed G47.30 Sleep apnea Modified On:04/09/2023/U Status:confirmed G47.00 Insomnia Modified On:04/09/2023/U Status:confirmed M54.16 Lumbar radiculopathy Modified On:04/09/2023/U Status:confirmed M51.26 Herniated lumbar dis c without myelopathy Modified On:04/09/2023 Status:confirmed A63.0 Genital warts Modified On:04/09/2023 Status:confirmed K80.20 Gall stones Modified On:04/09/2023 Status:confirmed G90.50 Reflex sympathetic d ystrophy Modified On:04/09/2023 Status:confirmed E11.9 Controlled type 2 di abetes mellitus Modified On:04/09/2023 Status:confirmed 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
--- OUTSIDE RECORDS SUMMARY | 2024-11-13 07:57 | XMS_ITS | Clinical Summary ---
Author Organization [facility] Address [address] [place] [address] Phone Care Team Providers Care Mapping Analyst Name Role Phone Joseph Hermosillo MD Primary Care Provider [phone] Social History Tobacco Use Types Packs/Day Years Used Date Smoking Tobacco: Never Assessed Sex and Gender Information Value Date Recorded Sex Assigned at Not on file Legal Sex Male 4:27 PM EST Gender Identity Not on file Sexual Orientation Not on file Plan of Treatment Not on file Care Teams Mapping Analyst Relationship Specialty Start Date End Date Joseph Hermosillo MD [address] [place] [address] PCP - General 09/20/19
--- OUTSIDE RECORDS SUMMARY | 2024-11-13 07:57 | XMS_ITS | Patient Health Record ---
Author Organization [facility] in [place] Address [address] [place] [address] Care Team Providers Care Blanchard Grinder Operator Name Role Phone Praveen Isidro Primary Care Provider Provider, Radiology Unavailable [phone] Allergies No Known Allergies Results Component Value Reference Range Notes XR KNEE RT 3V Reviewed date:09/04/2024 02:50:14 PM Interpretation: Performing Lab: Notes/Report: Source Facility: [place] [address] XRay Report Signed Patient: BEN AARON MR#: [id number] : 1975 Acct:[id number] Age/Sex: 49 / M ADM Date: 09/01/24 Loc: RAD Attending Dr: Norbert Isidro M.D. Ordering Physician: Norbert Isidro M.D. Date of Service: 09/01/24 Procedure(s): XR knee RT 3V Accession Number(s): [id number] cc: Norbert Isidro M.D. [place] [id number] Patient Name: BEN AARON MRN: [id number] date: 1975 Sex: M Assigned Patient Location: RAD Current Patient Location: RAD Accession/Order Number: [id number] Exam Date: 09/01/2024 21:19 Report Date: 09/01/2024 21:21 At the request of: NORBERT ISIDRO MD Procedure: XR knee RT 3V XR knee RT 3V 09/01/2024 4:48 PM SIGNS AND SYMPTOMS: Posterior right knee pain PROTOCOL: Frontal, lateral, and oblique radiographs of the right knee COMPARISON: None FINDINGS: The weightbearing joint spaces are preserved. There is mild narrowing of patellofemoral joint space with a small joint effusion. There is no fracture or dislocation. No significant soft tissue swelling. XR/XR knee RT 3V IMPRESSION: No acute bony injury. Mild degenerative changes are noted in the patellofemoral joint space with a small joint effusion. Impression dictated by: Stevie Nash M.D. 09/01/2024 9:21 PM Dictation Location: [place] [address] Electronically authenticated by: [id number] Y Date: 09/01/2024 21:21 Dictated By: Stevie Nash M.D. Signed By: 09/01/242122 DD/ 20 TD/TT: Yam Curer: MRI Knee RT w/o contrast * ( Not yet reviewed by provider) Interpretation: Performing Lab: Notes/Report: [facility], [place] [address] Name: Agnieszka Adair : 1975 Gender: M Referring Provider: Praveen Isidro Exam: MRI KNEE RT W/O CONTRAST RIGHT Exam Start: 09/27/2024 Accn: [id number] INDICATION/HISTORY: Unspecified internal derangement of unspecified knee (M23.90) Intermittent right knee pain for 6 weeks, no injury PROCEDURE: Noncontrast MRI right knee COMPARISON: No prior comparison available. FINDINGS: Moderate effusion of the right knee. Mild cartilage thinning over the lateral patellar facet. No abnormal marrow signal to suggest fracture, destructive process, or osteonecrosis. Collateral and cruciate ligaments are intact. Mild irregular cartilage thinning in the medial compartment. Axial tear of the posterior horn of the medial meniscus. Along the posterior margin of the posterior horn is a 0.7 x 0.4 x 1.4 cm parameniscal cyst. Abnormal signal extends anteriorly into the body of the medial meniscus. The lateral meniscus is intact. IMPRESSION: 1. Mild degenerative arthritis of the right knee. 2. Axial tear of the posterior horn of the medial meniscus with parameniscal cyst. Moderate joint effusion. 3. No fracture. Transcribed by: Tiny Diaz 09/27/2024 09:49 Sincerely, Demarcus Presley MD Electronically Signed: 09/27/2024 09:52 Thank you for referring JOSUE AARON to the [facility], [id number] Reason For Referral Diagnosis 1 Internal derangement of knee (M23.90) Referral Organization [facility] Referring Provider First Name Praveen Referring Provider Last Name Jaimee Referring Provider Speciality Family [facility] kathi Referred Provider Jorje Curtis Referred Provider Specialty Orthopedic S urgery Referral Priority Routine Medications Medication SIG (Take, Route, Fr equency, Duration) Notes Start Date End Date Status Bystolic 10 MG 1 tablet Orally Once a day; Duration: 30 days 07/30/2023 Active CPAP - use as directed; Duration: 1 days 2022 Active CPAP Supplies -- Mask and Tubing; Duration: 90 days 10/30/2022 Active Social History Tobacco Use: Social History Observation Description Date Details (start date - stop date) Former Smoker NA - 02/09/2023 Tobacco Use/Smoking Question Answer Notes Patient is a former smoker When did you stop smoking? 02/09/2023 How long has it been since you last smoked? 1-3 months Alcohol Screen (Audit-C) Question Answer Notes Did you have a drink containing alcohol in the p ast year? No Points 0 Interpretation Negative AUDIT-C (Standard) Question Answer Notes Did you have a drink containing alcohol in the p ast year? No Points 0 Interpretation Negative Problems Problem Type SNOMED Code ICD Code Onset Dates Problem Status W/U Status Risk Notes Problem Anxiety (20689405) Anxiety (F41.9) Active confirmed Problem Sleep apnea (59761753) Sleep apnea (G47.30) Active confirmed Problem Insomnia (222484272) Insomnia (G47.00) Active confirmed Problem Lumbar radiculopathy (842550804) Lumbar radiculopathy (M54.16) Active confirmed Problem Well adult (561142073) Well adult (Z00.00) Active confirmed Problem Displacement of lumbar intervertebral disc without myelopathy (36402044) Herniated lumbar disc without myelopathy (M51.26) Active confirmed Problem Genital warts (236878083) Genital warts (A63.0) Active confirmed Problem Gallstone (246923628) Gall stones (K80.20) Active confirmed Problem Reflex sympathetic dystrophy (259241504) Reflex sympathetic dystrophy (G90.50) Active confirmed Problem Internal derangement of knee (19210660) Internal derangement of knee (M23.90) Active confirmed Problem Type II diabetes mellitus without complication (719613725) Controlled type 2 diabetes mellitus (E11.9) Active confirmed Problem Benign neoplasm of kidney (15593315) Renal cell adenoma of right kidney (D30.01) Active confirmed Problem Osteoarthritis of knee (759528707) Knee osteoarthritis (M17.10) Active confirmed Vital Signs Temperature 98.3 degrees Fahrenheit 07/12/2024 Blood pressure diastolic 90 mm Hg 09/01/2024 Height 72 in 09/01/2024 Blood pressure systolic 150 mm Hg 09/01/2024 Weight 249 lbs 09/01/2024 BMI 33.77 kg/m2 09/01/2024 Encounters Encounter Location Date Provider Diagnosis [facility] [address] [place] [address] 07/12/2024 Praveen Isidro Acute bronchitis, unspecified organism J20.9 [facility] [address] [place] [address] 09/01/2024 Praveen Isidro Internal derangement of knee M23.[address] [address] 09/27/2024 Radiology Provider [facility] [address] [place] [address] 09/04/2024 Praveen Isidro Radiology [facility] [address] [place] [address] 09/12/2024 Praveen Isidro [facility] [address] [facility] [place] [address] 09/27/2024 Praveen Isidro [facility] [address] [facility] [place] [address] 09/28/2024 Praveen Isidro Internal derangement of knee M23.90 Assessments Encounter Date Diagnosis (ICD Code) Assessment Notes Treatment Notes Treatment Clinical Notes Section Notes 07/12/2024 Acute bronchitis, unspecified organism (ICD-10 - J20.9) Rest and drink more liquids, especially water. You may use a humidifier or vaporizer to help keep the drainage moist. Rufc-jlm-sfxaoaq Nasal Saline may help the stuffy and runny nose. Use Ibuprofen and or Tylenol as needed for fever, chills, body aches or pain. Children 5 years old should not be given cenw-fpm-ywbeemv cough and cold medications such as guaifenesin and dextromethorphan. If you're over age 5, you may try jpjd-pyk-owhtkjd cold medications such as guaifenesin and dextromethorphan, or multi-symptom cold reliever such as Dayquil to help reduce the symptoms. Antibiotics have been prescribed. You should take these until completed and follow the directions. Antibiotics can sometimes cause upset stomach, and in rare cases, serious allergic reactions or serious gastrointestinal problems. If you start having severe abdominal pain, severe vomiting, or bloody diarrhea, you should be reevaluated by your physician or urgent care immediately. Follow up with your Primary Care Provider or return to clinic if symptoms do not improve within 3-5 days. If you develop severe symptoms such as shortness of breath, repeated vomiting, coughing up blood, or chest pain you should go to the emergency room or call 911 09/01/2024 Internal derangement of knee (ICD-10 - M23.90) neeed MRI - giving out and + miley - consistent with meniscus tear 09/28/2024 Internal derangement of knee (ICD-10 - M23.90) Plan Of Treatment Pending Test Test Name Order Date CMP (COMPLETE METABOLIC PANEL) HEMOGLOBIN A1C (GLYCO) 04/09/2023 LIPID PANEL (CHOL/TRIG/HDL/LDL) 04/09/19 24 CBC WITH DIFF 04/09/2023 PSA, PROSTATE-SPECIFIC ANTIGEN 4 MRI Knee RT w/o contrast * 09/27/2024 STOOL OCCULT BLOOD 04/09/2023 MRI KNEE RT WO CON 09/01/2024 THYROID PANEL (T4/TSH/FREE T3) 4 Insurance Providers Payer Name Payer Address Payer Phone Subscriber Number Group Number Insured Name Patient Relationship to Insured Coverage Start Date Coverage End Date MMO [employer] [address] [place] [address] [id number] Josue Aaron Self - patient is the insured Medical (General) History Medical History History ICD Code Herniated lumbar disc without myelopathy M51.26 Renal cell adenoma of right kidney D30.0 1 Lumbar radiculopathy M54.16 Knee osteoarthritis M17.10 Gall stones K80.20 Genital warts A63.0 Anxiety F41.9 Controlled type 2 diabetes mellitus E11. 9 Sleep apnea G47.30 Reflex sympathetic dystrophy G90.50 Insomnia G47.00 GERD (gastroesophageal reflux disease) K 21.9 Duodenal ulcer K26.9 Colon polyp K63.5 Fracture Radial Styloid Process, left Surgical History Surgery Date(Month/Year) Cholecystectomy ORIF LEFT DISTAL RADIUS X2 Carpal Tunnel Release Removal of Penile Condyloma 10/01 Rt. Partial Nephrectomy 11/27/19
--- OUTSIDE RECORDS SUMMARY | 2024-11-13 07:57 | XMS_ITS | Clinical Summary ---
Author Organization [facility] Address [address], [address] [place] [address] Care Team Providers Care Plan Examiner Name Role Phone Joseph Hermosillo MD Primary Care Provider [phone] Allergies No known active allergies Medications ALPRAZolam (XANAX) 0.5 MG tablet Take 0.5 mg by mouth nightly as needed for Sleep. Active mirtazapine (REMERON) 30 MG tablet Take 30 mg by mouth nightly Active gabapentin (NEURONTIN) 100 MG capsule Take 1 capsule by mouth 3 times daily for 30 days. 90 capsule 11/03/2019 Active Family History Medical History Relation Name Comments Diabetes Father Relation Name Status Comments Father Social History Tobacco Use Types Packs/Day Years Used Date Smoking Tobacco: Every Day Smokeless Tobacco: Never Sex and Gender Information Value Date Recorded Sex Assigned at Not on file Legal Sex Male 5:09 AM EST Gender Identity Not on file Sexual Orientation Not on file Last Filed Vital Signs Vital Sign Reading Time Taken Comments Blood Pressure - - Pulse - - Temperature 36.9 C (98.5 F) 08/09/2020 10:19 AM EDT Respiratory Rate - - Oxygen Saturation - - Inhaled Oxygen Concentration - - Weight 111.1 kg (245 lb) 08/09/2020 10:19 AM EDT Height 182.9 cm (6') 08/09/2020 10:19 AM EDT Body Mass Index 33.23 08/09/2020 10:19 AM EDT Plan of Treatment Not on file [place] Care Teams Plan Examiner Relationship Specialty Start Date End Date Joseph Hermosillo MD [address] [place] [address] PCP - General Family Medicine 10/06/19
--- OUTSIDE RECORDS SUMMARY | 2024-11-13 07:57 | XMS_ITS | Clinical Summary ---
Author Organization [facility] Address [address] [place] [address] Care Team Providers Care Operations General Agent Name Role Phone Demarcus Otero MD Unavailable [phone] Joseph Hermosillo MD Primary Care Provider [phone] Allergies No known active allergies Medications ALPRAZolam (XANAX) 0.5 mg tablet Take 0.5 mg by mouth at bedtime as needed. Active mirtazapine (REMERON) 30 mg tablet Take 30 mg by mouth once daily. 11/01/2019 Active BYSTOLIC 10 mg tablet Take 10 mg by mouth once daily. 04/21/2020 Active Active Problems Problem Noted Date Diagnosed Date Nicotine use disorder, F17.2 11/29/2019 Renal mass, right 11/27/2019 Obesity, Class I, BMI 30-34.9 11/27/2019 Clear cell carcinoma of kidney 11/06/2019 Obesity 11/06/2019 Immunizations Immunization Administration Dates Next Due influenza (IIV3) vaccine, tr ivalent (AFLURIA, FLULAVAL, FLUVIRIN, FLUZONE) 11/27/2019(Deferred: Patient Refused) Social History Tobacco Use Types Packs/Day Years Used Date Smoking Tobacco: Every Day Cigarettes 1 18 Smokeless Tobacco: Never Alcohol Use Standard Drinks/Week Comments Yes 0 (1 standard drink = 0.6 oz pur e alcohol) AUDIT-C Answer Date Recorded Q1: How often do you have a drink containing alc ohol? Monthly or less 11/24/2019 Average Number of Drinks Not on file 020 Frequency of Binge Drinking Not on file 10/2019 Overall Financial Resource Strain (CARDIA) Answe r Date Recorded How hard is it for you to pa y for the very basics like food, housing, medical care, and heating? Not hard at all 11/28/2019 Hunger Vital Sign Answer Date Recorded Within the past 12 months, y ou worried that your food would run out before you got the money to buy more. Never true 11/28/19 20 Within the past 12 months, t he food you bought just didn't last and you didn't have money to get more. Never true 11/28/2019 PRAPARE - Transportation Answer Date Re corded In the past 12 months, has l ack of transportation kept you from medical appointments or from getting medications? No 11/15 In the past 12 months, has l ack of transportation kept you from meetings, work, or from getting things needed for daily living? No 11/28/2019 Area Deprivation Index Answer Date Solis rded National Score (1-100), lower number is lower ri sk Not on file 01/23/2020 State Score (1-10), lower number is lower risk N ot on file 01/23/2020 Data from: https://www.neighborhoodatlas.medicine.[facility].edu/. Last address used for calculation Not on file 01/23/2020 Sex and Gender Information Value Date Recorded Sex Assigned at Male 11/21/2019 10:08 PM EDT Legal Sex Male 10:25 AM EDT Gender Identity Male 11/21/2019 10:08 PM EDT Sexual Orientation Straight 11/21/2019 10 :08 PM EDT Last Filed Vital Signs Vital Sign Reading Time Taken Comments Blood Pressure 139/87 11/29/2019 10:26 AM EDT Pulse 94 11/29/2019 10:26 AM EDT Temperature 36.4 C (97.5 F) 11/29/2019 10:26 AM EDT Respiratory Rate 18 11/29/2019 10:26 AM EDT Oxygen Saturation 97% 11/29/2019 10:26 AM EDT Inhaled Oxygen Concentration - - Weight 113.4 kg (250 lb) 05/17/2020 8:35 AM EDT Height 182.9 cm (6') 05/17/2020 8:35 AM EDT Body Mass Index 33.91 05/17/2020 8:35 AM EDT Plan of Treatment Health Maintenance Due Date Last Done Comments Anxiety Screening 08/08/1991 Depression Screening 08/08/1991 HIV Screening 08/08/1991 Hepatitis C Screening 08/08/1991 DTaP,Tdap,Td Vaccine (1 - Tdap) 1992 Hepatitis B Vaccine (1 of 3 - 19+ 3-dose series) [address] Colonography 2018 Cologuard (FIT-DNA) 2018 Colonoscopy 2018 Colorectal Cancer Screening 2018 Fecal Occult Blood 2018 Sigmoidoscopy 2018 Diabetes Screening 05/18/2023 05/17/2020, 1 , 11/28/2019, Additional history exists Pneumococcal Vaccine: 50+ (1 of 1 - PCV) 08/08/2023 Shingrix Vaccine (1 of 2) 08/08/2023 Influenza Vaccine (#1) 2024 Medical Devices Implanted Type Area Wood Carving Lathe Operator Device Identifier Shelf Expiration Date Model / Serial / Lot Plate Plate Arm Procedures Procedure Name Priority Date/Time Associated Diagnosis Comments BASIC METABOLIC PANEL Routine 05/17/2020 8:16 AM EDT Malignant neoplasm of right kidney, except renal pelvis (HCC) from Last 3 Months or Most Recently Relevant to Health Maintenance Results * BASIC METABOLIC PNL (05/17/2020 8:16 AM EDT) Glucose 84 74 - 99 mg/dL 05/17/2020 10:31 AM EDT [facility] Comment: The [place] Diabetes Association (ADA) provides guidance for cutoff [...] Standards of Medical Care in Diabetes 2016, [place] Diabetes Association. Diabetes Care. 2016.39(Suppl 1). BUN 17 9 - 24 mg/dL 05/17/2020 10:31 AM EDT [facility] Creatinine 1.11 0.73 - 1.22 mg/dL 05/17/2020 10:31 AM EDT [facility] Sodium 140 136 - 144 mmol/L 05/17/2020 10:31 AM EDT [facility] Potassium 4.5 3.7 - 5.1 mmol/L 05/17/2020 10:31 AM EDT [facility] Chloride 105 97 - 105 mmol/L 05/17/2020 10:31 AM EDT [facility] CO2 25 22 - 30 mmol/L 05/17/2020 10:31 AM EDT [facility] Anion Gap 10 9 - 18 mmol/L 05/17/2020 10:31 AM EDT [facility] Calcium 9.4 8.5 - 10.2 mg/dL 05/17/2020 10:31 AM EDT [facility] eGFR- >60 05/17/2020 10:31 AM T [facility] eGFR-All Other Races >60 . 05/17/2020 10:31 AM T [facility] Comment: eGFR (Estimated GFR) Units of measure: [...] eGFR may not accurately reflect actual GFR. Blood BLOOD SPECIMEN / Unknown 05/17/2020 8:16 AM EDT 05/17/2020 8:18 AM EDT us Jonas Messer MD LABORATORY Final Re sult [facility] [address] [place] [address] [facility] [address] [place] [address] from Last 3 Months or Most Recently Relevant to Health Maintenance Insurance [facility] PPO Member Subscriber Plan / Payer (Ef fective 2019-Present) Name:Chan Aaron Relation to Subscriber:Self Name:Chan Aaron Payer ID:[id number] (NAIC) Type:PPO Address: [facility] [id number] MEDICAID Care Teams Operations General Agent Relationship Specialty Start Date End Date Joseph Hermosillo MD PCP - General Family Medicine 11/28/19 Demarcus Otero MD Urology 11/01/19
--- OUTSIDE RECORDS SUMMARY | 2024-11-13 07:57 | XMS_ITS | Encounter Summary ---
Author Organization [facility] Address [address] [place] [address] Care Team Providers Care Stationary Steam Engineer Name Role Phone Demarcus Otero MD Unavailable [phone] Joseph Hermosillo MD Primary Care Provider [phone] Source Comments In the event this information is protected by the Federal Confidentiality of Alcohol and Drug AbusePatient Records regulations: The Federal rules restrict any use of the information to criminally investigate or prosecute any alcohol or drug abuse patient.[facility] Encounter Details Date Type Department Care Team (Late st Contact Info) Description 11/27/2019 Surgical Case HOSP MAIN [facility] [address] [place] [address] Tremayne Hanna MD [address] [place] [address] Social History Tobacco Use Types Packs/Day Years [...] things needed for daily living? No 11/28/2019 Sex and Gender Information Value Date Recorded Sex Assigned at Male 11/21/2019 10:08 PM EDT Legal Sex Male 10:25 AM EDT Gender Identity Male 11/21/2019 10:08 PM EDT Sexual Orientation Straight 11/21/2019 10 :08 PM EDT COVID-19 Exposure Response Date Recorded In the last month, have you been in contact with someone who was confirmed or suspected to have Coronavirus / COVID-19? No / Unsure 11/27/2019 6:21 AM EDT documented as of this encounter Plan of Treatment Not on file documented as of this encounter Visit Diagnoses Not on filedocumented in this encounter Care Teams Stationary Steam Engineer Relationship Specialty Start Date End Date Joseph Hermosillo MD PCP - General Family Medicine 11/28/19 Demarcus Otero MD Urology 11/01/19 documented as of this encounter
--- NOTE | 2024-11-13 07:58 | ECG_ITS ---
[facility] Test Date: 2024-11-13 Pat Name: BEN CR Department: Room: - Gender: Male Territory Sales Manager: : 1975 Requested By: NORBERT ISIDRO Order Number: [id number] Reading MD: CASTILLO MORENO Measurements Intervals Forgan Rate: 65 P: 58 RI: 197 QRS: 21 QRSD: 94 T: 49 QT: 392 QTc: 408 Interpretive Statements SINUS RHYTHM Compared to ECG 09/23/2019 10:57:34 No significant changes Electronically Signed On 11-13-2024 15:23:04 EDT by CASTILLO MORENO
[2024-11-13 09:07] LABS: Hematocrit 46.7 % (42.0-54.0); Hemoglobin 16.1 g/dL (14.0-18.0); Mean Corpuscular HGB Conc 34.5 g/dL (29.9-35.2); Mean Corpuscular Hemoglobin 30.5 pg (25.9-34.0); Mean Corpuscular Volume 88.4 fL (80.0-94.0); Red Blood Count 5.28 10^6/uL (4.70-6.10); White Blood Count 9.6 10^3/uL (4.0-11.0)
[2024-11-13 09:08] LABS: Immature Granulocytes Abs Auto 0.06 10^3/uL (0.00-0.03); Immature Granulocytes Pct Auto 0.6 % (0.0-0.5); Lymphocytes Absolute Auto 2.6 10^3/uL (1.2-3.8); Platelet Count 285 10^3/uL (150-450)
[2024-11-13 09:26] LABS: Alanine Aminotransferase 41 U/L (16-63); Albumin Globulin Ratio 0.9; Albumin Level 3.5 g/dL (3.4-5.0); Alkaline Phosphatase 123 U/L (46-116); Anion Gap 12.8; Aspartate Amino Transferase 18 U/L (15-37); Blood Urea Nitrogen 21.0 mg/dL (7.0-18.0); Calcium 9.0 mg/dL (8.5-10.1); Carbon Dioxide 26.5 mmol/L (21.0-32.0); Chloride 106 mmol/L (98-107); Estimated GFR (African America >60 (>=60 mL/min/1.73m^2); Estimated GFR (Non-African Ame >60 (>=60 mL/min/1.73m^2); Globulin 3.7 g/dL; Glucose 92 mg/dL (74-106); Potassium 4.3 mmol/L (3.5-5.1); Sodium 141 mmol/L (136-145); Total Protein 7.2 g/dL (6.4-8.2)
== END 2024-11-13 07:55 | disposition home or self-care (01) ==
PROVIDERS: PCP Family Medicine; Visit Provider Orthopaedic Surgery Orthopaedic Trauma
DX: Z01.810 Encounter for preprocedural cardiovascular examination (principal); Z01.812 Encounter for preprocedural laboratory examination; M25.561 Pain in right knee
CPT/HCPCS: 80053; 85025; 93005

== ENCOUNTER 2024-11-20 11:12 | Day surgery (SDC) | payer OTHER, SELFPAY ==
[2024-11-13 08:02] VITALS: BP 130/80; PULSE 69; TEMP 36.2; O2SAT 94; BMI 34.8
[2024-11-20] VITALS (10 sets, daily range): BP systolic 128–156; BP diastolic 64–89; PULSE 60–90; TEMP 36.1–36.3; O2SAT 89–98; BMI 34.8
--- OUTSIDE RECORDS SUMMARY | 2024-11-20 11:18 | XMS_ITS | CCD ---
Author Organization [facility] CliniSyal Care Team Providers Care Sewer Maintenance Supervisor Name Role Phone RODRIGO LUCERO Unavailable Unavailable RODRIGO LUCERO Unavailable Unavailable NORBERT HERMOSILLO Unavailable Unavailable NORBERT HERMOSILLO Unavailable Unavailable DO Demarcus Bender Emergency Provider MD Norbert Hermosillo Primary Care Provider [phone] DO Jaleel Nair Attending Provider Neal Curtis Unavailable MD Norbert Hermosillo Primary Care Provider [phone] DO Jaleel Nair Attending Provider DR NORBERT HERMOSILLO Attending Unavailable DWAINE, DR TOUSSAINT Consulting Unavailable DR NORBERT HERMOSILLO Primary Care Unavailable DR NORBERT HERMOSILLO Admitting Unavailable Jaleel Nair Admitting Unavailable Jaleel Nair Attending Unavailable Norbert Hermosillo Primary Care Unavailable Blades, Angi A Admitting Unavailable Angi Fatima Attending Unavailable Norbert Hermosillo Primary Care Unavailable Jaleel Nair Admitting Unavailable Jaleel Nair Attending Unavailable Norbert Hermosillo Primary Care Unavailable TupaShilaDemarcus M Admitting Unavailable Demarcus Bender M Attending Unavailable Norbert Hermosillo Primary Care Unavailable Joanie Jaleel P Admitting Unavailable Jaleel Nair Attending Unavailable Norbert Hermosillo Primary Care Unavailable MD Norbert Hermosillo Primary Care Provider [phone] MD Angi Fatima Attending Provider [phone] DO Jaleel Nair Attending Provider Bladesandy Angi Unavailable Josue Valderrama Attending Unavailable Norbert Hermosillo MD Primary Care Provider [phone] Judd Hi DO Attending Provider Allergies Allergy Classification Reported Allergen(s) Allergy Type Date of Onset Reaction(s) Facility (1 source) 33562,00; Translations: [64410,00] Propensity to adverse reactions (disorder) 1 [facility] Repository Medications Current Medications Medication Drug Class(es) Dates Sig (Normalized) Sig (Original) gabapentin 300 mg oral capsule (3 sources) Anti-epileptic Agent Start: 01-26-2022 take 1 capsule by mouth three times daily Gabapentin 300 MG 1 capsule Orally three times daily for 30 day(s) Jan, Active metaxalone 800 mg oral tablet (5 sources) Start: 06-06-2021 take 1 tablet by mouth three times daily as needed for muscle spasms Metaxalone (Skelaxin) 800 mg Tablet Active 800 MG PO Three times daily as needed for Muscle Spasm June 06, 2021 12:00am Complies with drug therapy nebivolol 10 mg oral tablet (13 sources) Nebivolol HCl 10 MG Oral for 81 Days Active traMADol hydrochloride 50 mg oral tablet (6 [...] as needed for 30 day(s) Oct, Not-Taking ibuprofen 800 mg oral tablet (15 sources) Nonsteroidal Anti-inflammatory Drug Start: 06-06-2021 End: 10-23-2024 take 1 tablet by mouth three times daily as needed for pain Ibuprofen 800 mg Tablet Discontinued 800 MG PO Three times daily as needed for Pain June 06, 2021 12:00am October 23, 2024 10:29am take 1 tablet by fiordaliza th every eight hours at mealtime as needed Ibuprofen 800 MG 1 tablet with food or milk as needed Orally every 8 hrs Active predniSONE 10 mg oral tablet (5 sources) Start: 06-06-2021 End: 10-23-2024 Prednisone 10 mg Tablet Discontinued 60 MG PO Daily 30 June 06, 2021 12:00am October 23, 2024 10:29am Start: 06-06-2021 take 60 mg by mouth once daily Prednisone Active 60 MG PO Daily 14 07June 05, 2021 11:00pm Problems Problem Classification Problem Date Documented Date Episodic/Chronic Joint disorders and dislocations; trauma-related (2 sources) Other tear of medial meniscus, current injury, right knee, initial encounter; Translations: [Tear of medial meniscus of right knee] 10-23-2024 Episodic Other nervous system disorders (5 sources) Other [...] encounter] Onset: 08-21-2021 Resolved: 10-21-2021 06-06-2021 Episodic Comment on above: Problem List clean-u p per request of Phys. EHR Cmte Unclassified (1 source) Strain of muscle, fascia and tendon of lower back, initial encounter; Translations: [Strain of muscle, fascia and tendon of lower back, initial encounter] Onset: 10-29-2021 Unclassified (1 source) Low back pain, unspecified; Translations: [Low back pain, unspecified] Onset: 06-06-2021 Results Test Name Value Interpretation Reference Range Facility CBC w/ Auto Diffon 4 Basophils/100 WBC (Bld) 0.5 % Normal 0.0-2.0 [facility] Comment on above: Performed By: #### 2 180148, 71595639, 4697655, 50807404, 4678815, 1784521, 4129465, 27014336 #### [facility] [address] [place] [address] Basophils/Leukocytes Auto (Bld) [Pure # fraction] 0.1 E9/L Normal 0.0-0.2 [facility] Comment on above: Performed By: #### 2 574207, 02211045, 6351083, 94866482, 7822314, 5239193, 8743667, 61763928 #### [facility] [address] [place] [address]908 Eosinophils (Bld) [#/Vol] 0.2 E9/L Normal 0.0-0.5 [facility] Comment on above: Performed By: #### 2 529417, 12597694, 8411043, 57339587, 0537958, 9941034, 9464477, 92239865 #### [facility] [address] [place] [address] 93674 Eosinophils/100 WBC (Bld) 1.9 % Normal 0.0-8.0 [facility] Comment on above: Performed By: #### 2 783180, 38173477, 8459357, 59573930, 4714977, 9120354, 1614089, 12167643 #### [facility] [address] [place] [address]994 Erythrocyte distribution width (RBC) [Ratio] 13.0 % Normal 10.9-14.2 [facility] Comment on above: Performed By: #### 2 832778, 00527549, 0818273, 73646991, 4545117, 4000900, 5031938, 40628242 #### [facility] [address] [place] [address] 42353 Hematocrit (Bld) [Volume fraction] 41.8 % Normal 37.7-49.0 [facility] Comment on above: Performed By: #### 2 516243, 50779510, 6636950, 87657164, 4522589, 9445833, 0590502, 17751971 #### [facility] [address] [place] [address] Hemoglobin (Bld) [Mass/Vol] 14.3 g/dL Normal 13.5-17.5 [facility] Comment on above: Performed By: #### 2 555906, 87375985, 2977789, 43927482, 4795743, 1431684, 1917340, 52104899 #### [facility] [address] [place] [address] Lymphocytes (Bld) [#/Vol] 2.6 E9/L Normal 1.0-4.0 [facility] Comment on above: Performed By: #### 2 742443, 46340109, 5907244, 95623713, 1036908, 8126007, 2821440, 75835747 #### [facility] [address] [place] [address] 86964 Lymphocytes/100 WBC (Bld) 26.9 % Normal 14.0-50.0 [facility] Comment on above: Performed By: #### 2 948654, 65900114, 5150628, 24228925, 8972938, 6964106, 4457585, 79433067 #### [facility] [address] [place] [address] 06936 MCH (RBC) [Entitic mass] 29.7 pg Normal 27.0-34.0 [facility] Comment on above: Performed By: #### 2 160377, 84996422, 5842395, 43488597, 1730264, 8207948, 6176839, 31299195 #### [facility] [address] [place] [address] 32117 MCHC (RBC) [Mass/Vol] 34.3 g/dL Normal 31.4-36.0 [facility] Comment on above: Performed By: #### 2 422571, 07533716, 7558558, 80488649, 8544333, 3301510, 3108469, 88133886 #### [facility] [address] [place] [address] 14120 MCV (RBC) [Entitic vol] 86.8 fL Normal 80.0-100.0 [facility] Comment on above: Performed By: #### 2 663633, 85340750, 0099555, 60526547, 5891370, 7187136, 9662991, 40240192 #### [facility] [address] [place] [address] Monocytes (Bld) [#/Vol] 0.7 E9/L Normal 0.2-1.0 [facility] Comment on above: Performed By: #### 2 085861, 57619117, 2113126, 15125772, 1600664, 3089659, 0481698, 09204635 #### [facility] [address] [place] [address] Neutrophils (Bld) [#/Vol] 6.2 E9/L Normal 2.0-7.5 [facility] Comment on above: Performed By: #### 2 152141, 34535195, 6004705, 31193147, 8948510, 3486348, 0682444, 28255414 #### [facility] [address] [place] [address] Neutrophils/100 WBC (Bld) 63.3 % Normal 36.0-75.0 [facility] Comment on above: Performed By: #### 2 354187, 72694517, 8279869, 97533184, 6765552, 1207742, 0145962, 66706907 #### [facility] [address] [place] [address] Platelet mean volume (Bld) [Entitic vol] 7.8 fL Normal 6.4-10.8 [facility] Comment on above: Performed By: #### 2 369592, 27710530, 0101274, 85186524, 6806007, 9807100, 8669394, 96571843 #### [facility] [address] [place] [address] Platelets (Bld) [#/Vol] 248.0 E9/L Normal 150.0-500.0 [facility] Comment on above: Performed By: #### 2 570562, 06367636, 5998340, 57301003, 6368097, 4014496, 5457039, 47399240 #### [facility] [address] [place] [address] RBC (Bld) [#/Vol] 4.8 E12/L Normal 4.3-5.9 [facility] Comment on above: Performed By: #### 2 395782, 38476088, 1117058, 24627076, 5003708, 2745373, 1337953, 43073623 #### [facility] [address] [place] [address] WBC corrected for nucl RBC Auto (Bld) [#/Vol] 9.8 E9/L Normal 4.0-11.0 [facility] Comment on above: Performed By: #### 2 138196, 86455798, 6553724, 20972741, 3435698, 5564858, 0760748, 28193968 #### [facility] [address] [place] [address] CMPon 04-24-2023 Albumin [Mass/Vol] 4.3 g/dL Normal 3.3-5.0 [facility] Comment on above: Performed By: #### 2 095448, 92873856, 3215048, 19304953, 3859681, 4456012, 4790843, 97979469 #### [facility] [address] [place] [address] 73350 Albumin/Globulin (S) [Mass conc ratio] 1.7 Normal 1.1-2.2 [facility] Comment on above: Performed By: #### 2 530787, 34795568, 7619591, 70380114, 8155322, 1219659, 9925795, 94140670 #### [facility] [address] [place] [address] ALP [Catalytic activity/Vol] 102 Int._Unit/L High 21-98 [facility] Comment on above: Performed By: #### 2 615509, 56134025, 2806349, 57865721, 3061617, 7405676, 7775331, 85340919 #### [facility] [address] [place] [address] 75488 ALT No additional P-5'-P [Catalytic activity/Vol] 15 Int._Unit/L Normal 6-46 [facility] Comment on above: Performed By: #### 2 919383, 53470185, 3287595, 82492062, 7409390, 4060553, 9296817, 91363700 #### [facility] [address] [place] [address] 37033 Anion gap [Moles/Vol] 12 mmol/L Normal 6-16 [facility] Comment on above: Performed By: #### 2 962895, 26844475, 5935341, 44273436, 6105705, 6070234, 8016774, 26947856 #### [facility] [address] [place] [address] 19719 AST [Catalytic activity/Vol] 16 Int._Unit/L Normal 5-43 [facility] Comment on above: Performed By: #### 2 537369, 60281478, 7079929, 38425341, 9841585, 4539357, 7832352, 79148758 #### [facility] [address] [place] [address] 42115 Bilirubin [Mass/Vol] 0.4 mg/dL Normal 0.0-1.1 [facility] Comment on above: Performed By: #### 2 998667, 85073787, 3464853, 05047540, 0146325, 9488709, 9056558, 63315738 #### [facility] [address] [place] [address] 48357 Calcium [Mass/Vol] 9.1 mg/dL Normal 8.9-11.1 [facility] Comment on above: Performed By: #### 2 165072, 51913378, 3164109, 25491865, 7572244, 8037425, 3431243, 04888429 #### [facility] [address] [place] [address] Chloride [Moles/Vol] 108 mmol/L Normal 101-111 [facility] Comment on above: Performed By: #### 2 338008, 53383377, 6388618, 95267633, 5364916, 1179678, 5640676, 10782792 #### [facility] [address] [place] [address] CO2 [Moles/Vol] 23 mmol/L Normal 21-31 [facility] Comment on above: Performed By: #### 2 701119, 51898064, 6671719, 46004342, 5800275, 4264960, 8858454, 31532247 #### [facility] [address] [place] [address] Creatinine [Mass/Vol] 1.1 mg/dL Normal 0.5-1.3 [facility] Comment on above: Performed By: #### 2 122432, 04317933, 8003724, 55176952, 7766904, 5789958, 4127366, 02428459 #### [facility] [address] [place] [address] Globulin (S) [Mass/Vol] 2.5 g/dL Normal 1.4-4.0 [facility] Comment on above: Performed By: #### 2 856948, 87222779, 7253730, 74793124, 9127244, 3561717, 3189651, 38303529 #### [facility] [address] [place] [address] Glucose [Mass/Vol] 97 mg/dL Normal 55-199 [facility] Comment on above: Performed By: #### 2 075898, 26302318, 8234395, 76598891, 2212207, 8038850, 3052554, 02895049 #### [facility] [address] [place] [address] Potassium [Moles/Vol] 4.2 mmol/L Normal 3.5-5.3 [facility] Comment on above: Performed By: #### 2 507631, 87966516, 8724112, 05178346, 3534033, 5701379, 9680185, 60921310 #### [facility] [address] [place] [address] Protein [Mass/Vol] 6.8 g/dL Normal 6.0-7.8 [facility] Comment on above: Performed By: #### 2 356563, 35085978, 1705654, 54392515, 1391484, 9327021, 9832110, 71255480 #### [facility] [address] [place] [address] Sodium [Moles/Vol] 139 mmol/L Normal 135-145 [facility] Comment on above: Performed By: #### 2 120796, 56042822, 3682494, 17477075, 4608504, 3959965, 2200070, 14669772 #### [facility] [address] [place] [address] Urea nitrogen [Mass/Vol] 24 mg/dL High 5-21 [facility] Comment on above: Performed By: #### 2 774753, 56349720, 8248352, 06942446, 0317054, 9794396, 8434718, 30245557 #### [facility] [address] [place] [address] Urea nitrogen/Creatinine [Mass ratio] 22 No Units High 10-20 [facility] Comment on above: Performed By: #### 2 297497, 34617362, 8940567, 08554794, 6328246, 6264971, 4266525, 98765171 #### [facility] [address] [place] [address] Consent for Treatmenton Consent for Treatment [id number] .[id number] Normal [facility] Discharge Instructionson Discharge Instructions [id number]. 00TIFF Normal [facility] ED Clinical Summaryon 2023 ED Clinical Summary [place] [id number] ED Clinical Summary Person Information Name: CHAN AARON [place] Age: 47 Years : 1975 Sex: Male Language: Persian PCP: Norbert Hermosillo MD Marital Status: Visit [...] 04/24/2023 08:21:42 04/24/2023 08:21:42 04/24/2023 08:21:42 ADDRESS: [address] [place] [address] [place] [id number] PHYS DOC NOTES: MEDICAL INFORMATION: Prescriptions Given: Medications to Continue with No Changes Other Medications nebivolol (nebivolol 10 mg Tab) 1 Tablets By Mouth every day. PATIENT EDUCATION INFORMATION: Instructions: Weakness; Bradycardia, Adult Follow up: With: Address: When: Kendell Harp [address] [place] [address] Business (1) In 3 days 04/27/2023 With: Address: When: Tammy Mckeon [address] [place] [address] Business (1) In 3 days 04/27/2023 DIAGNOSIS: Bradycardia; Weakness Normal [facility] ED Note-Physicianon 04-24-19 ED Note-Physician Basic Information Time Seen: Jannie KAT Josue 04/24/2023 07:03 Chief Complaint I feel like [...] x-ray is normal thyroid studies are normal Traill testing is negative. The etiology of the [...] Harp In 3 days 04/27/2023 EDT [address] [place] [address]- [facility] (1) Additional Instructions: Tammy Mckeon In 3 days 04/27/2023 EDT [address] [place] [address]- Business (1) Additional Instructions: Patient Education Weakness Bradycardia, Adult Problem List/Past Medical History Ongoing Acute bronchitis Anxiety BMI 35.0-35.9,adult Chest pain Complex renal cyst Depression Diabetes Duodenitis Encounter for vasectomy Esophagitis Genital warts GERD (gastroesophageal reflux disease) Hypertension Insomnia Knee osteoarthritis Lesion of left femoral nerve Lumbar radiculopathy Obesity Reflex symp (more content not included)... Normal [facility] Comment on above: Result Comment: Elec tronically Signed By: Josue Valderrama DO\.br\Date and Time Signed: 04/24/23 08:16 EST ED Patient Education Noteon 04-24-2023 ED Patient Education Note Emergency Medicine Bradycardia, Adult Bradycardia is a ljuohi-yhab-vmaema heartbeat. A normal resting heart rate for [...] provider. ? Follow a heart-healthy diet. A nutritionists (dietitian) can help educate you about healthy [...] liquor (44 mL). General instructions ? Take dlee-cke-xsfkiod and prescription medicines only as told by [...] to s (more content not included)... Normal [facility] ED Patient Summaryon 024 ED Patient Summary [address] [id number] Patient Discharge Instructions Person Information Name: CHAN AAORN Age: 47 Years Arrival Date: 04/24/2023 06:39:21 Discharge Diagnosis: Bradycardia; Weakness Primary Care Physician: Norbert Hermosillo MD Provider Information Primary Provider: Josue Valderrama DO Advanced Belt Brander:None The exam and treatment you received in the Emergency Department were for an urgent problem and are not intended as complete care. It is important that you follow up with a doctor, nurse practitioner, or physician?s processing assistant for ongoing care. If your symptoms become worse or you do not improve as expected and you are unable to reach your usual health care provider, you should return to the Emergency Department. We are available 24 hours a day. CHAN AARON has been given the following list of patient education materials, prescriptions and follow-up instructions: Follow-up Instructions: With: Address: When: Kendell Harp [address] [place] [address] Business (1) In 3 days 04/27/2023 With: Address: When: Tammy [address] [place] [address] JMEA (1) In 3 days 04/27/2023 In the event that this physician does not participate in your insurance network, please consult with your insurance company to find a nearby participating provider. Patient Education Materials: Weakness; Bradycardia, Adult A MESSAGE TO ALL PATIENTS REGARDING OPIOIDS PRESCRIPTION OPIOIDS: WHAT YOU NEED TO KNOW Prescription opioids can be used to help relieve bawjdvqk-bx-ziojpi pain and are often prescribed following a [...] tell y (more content not included)... Normal [facility] Lipase Levelon 04-24-2023 Lipase [Catalytic activity/Vol] 19 U/L Normal 13-58 [facility] Comment on above: Performed By: #### 2 236644, 03013184, 4622484, 89057984, 2082144, 4321882, 9307990, 17945980 #### [facility] [address] [place] [address] Magnesiumon 04-24-2023 Magnesium [Mass/Vol] 2.0 mg/dL Normal 1.3-2.4 [facility] Comment on above: Performed By: #### 2 598079, 17839856, 0681741, 55987733, 0411352, 0738330, 0327147, 51434547 #### [facility] [address] [place] [address] Traill Screenon 04-24-2023 Heterophile Ab LA Ql (S) Negative Normal Negative [facility] Comment on above: Performed By: #### 2 539800, 22209679, 9819632, 43800284, 8161715, 1967126, 3279793, 20734296 #### [facility] [address] [place] [address] TSH With T4fr Reflexon 04-23 TSH Qn 1.05 m[IU]/L Normal 0.34-5.60 [facility] Comment on above: Performed By: #### 2 587019, 46503114, 4421570, 50000606, 1864358, 2674026, 0679141, 88903084 #### [facility] [address] [place] [address] Troponin 0 Hr.on 04-24-2023 Troponin 4.10 pg/mL Low 15.90-38.40 [facility] Comment on above: Result Comment: The 95% CI (Confidence Interval) PPV (Positive Predictive Value) for myocardial infarction in females is 38 pg/mL, in males 51 pg/mL. The results should be used in conjunction with clinical conditions of myocardial infarction. (Access High Sensitivity Troponin I Instructions For Use, Triston Tejinder, September 2017) Performed By: #### 2 964784, 82363803, 1814408, 70455847, 8901116, 3359136, 3172570, 47620575 #### [facility] [address] [place] [address] UA With Cult Reflexon 2023 Bilirubin Ql (U) Negative Normal Negative [facility] Comment on above: Performed By: #### 1 2189940 ####[facility] [address] [place] [address] Clarity (U) CLEAR Normal Clear [facility] Comment on above: Performed By: #### 1 7612248 ####[place] [address] [place] [address] Color (U) YELLOW Normal Yellow [facility] Comment on above: Performed By: #### 1 3227727 ####[facility] [address] [place] [address] Epithelial cells.squamous LM.HPF (Urine sed) [#/Area] 0-2 Normal 0-2 [facility] Comment on above: Performed By: #### 1 2562811 ####[place] [address] [place] [address] Glucose Test strip (U) [Mass/Vol] Negative Normal Negative [facility] Comment on above: Performed By: #### 1 8387987 ####[facility] [address] [place] [address] Hemoglobin Ql (U) Negative Normal Negative [facility] Comment on above: Performed By: #### 1 8359104 ####[address] [address] Ketones (U) [Mass/Vol] Negative Normal Negative [facility] Comment on above: Performed By: #### 1 8195265 ####[address] [address] [place].plasma/Lithi um.RBC (Bld) [Mass ratio] 0-3 Normal 0-3 [facility] Comment on above: Performed By: #### 1 4875077 ####[address] [address] Nitrite Ql (U) Negative Normal Negative [facility] Comment on above: Performed By: #### 1 0543177 ####[address] [address] pH (U) 6.0 [pH] Invalid Interpretation Code 5.0-9.0 [facility] Comment on above: Performed By: #### 1 2552263 ####[address] [address] Protein (U) [Mass/Vol] Negative Normal Negative [facility] Comment on above: Performed By: #### 1 1553817 ####[address] [address] Specific gravity (U) [Rel density] 1.015 Invalid Interpretation Code 1.005-1.030 [facility] Comment on above: Performed By: #### 1 3672867 ####[facility] [address] [place] [address] Type of Urine collection method Clean Catch Normal [facility] Comment on above: Performed By: #### 1 1828321 ####[facility] [address] [place] [address] Urobilinogen Qn (U) 1.0 {Darrius'U}/dL Normal 0.0-1.0 [facility] Comment on above: Performed By: #### 1 3582654 ####[facility] [address] [place] [address] WBC Auto Ql (U) Negative Normal Negative [facility] Comment on above: Performed By: #### 1 7596430 ####[facility] [address] [place] [address] WBC LM.HPF (Urine sed) [#/Area] 0-5 Normal 0-5 [facility] Comment on above: Performed By: #### 1 2683135 ####[address] [address] XR Chest 2 Viewson XR Chest 2 [...] mGy = na DAP = na Normal [facility] eGFRon 04-24-2023 eGFR 82 mL/min/1.73 m2 Normal >=59 [facility] Comment on above: Order Comment: Order added by Discern Expert. Performed By: #### 2 538806, 64281904, 1442306, 88250184, 3771030, 6398804, 7319118, 73921062 #### [facility] [address] [place] [address] INSULINon 03-05-2022 Insulin 33.9 uIU/mL Critically high 2.6-24.9 [facility] Comment on above: Performed By: #### I NSULIN #### [facility] [address] [place] [address] Dr. Shawn Clay CBC AUTO DIFFon 03-04-2022 BASO # 0.1 103/ul Normal 0.0-0.1 [facility] Comment on above: Performed By: #### C BC #### [facility] [address] [place] [address] Dr. Shawn Clay Basophils/100 WBC (Bld) 0.4 % Normal 0.2-2.0 [facility] Comment on above: Performed By: #### C BC #### [facility] [address] [place] [address] Dr. Shawn Clay EO # 0.3 103/ul Normal 0.0-0.7 [facility] Comment on above: Performed By: #### C BC #### [facility] [address] [place] [address] Dr. Shawn Clay Eosinophils/100 WBC (Bld) 2.5 % Normal 0.9-7.0 [facility] Comment on above: Performed By: #### C BC #### [facility] [address] [place] [address] Dr. Shawn Clay Erythrocyte distribution width (RBC) [Ratio] 12.5 % Normal 11.0-15.0 [facility] Comment on above: Performed By: #### C BC #### [facility] [address] [place] [address] Dr. Shawn Clay Hematocrit (Bld) [Volume fraction] 46.8 % Normal 42.0-54.0 [facility] Comment on above: Performed By: #### C BC #### [facility] [address] [place] [address] Dr. Shawn Clay Hemoglobin (Bld) [Mass/Vol] 15.8 g/dL Normal 14.0-18.0 [facility] Comment on above: Performed By: #### C BC #### [facility] [address] [place] [address] Dr. Shawn Clay IG # 0.08 10e3/ul Critically high 0.00-0.03 [facility] Comment on above: Performed By: #### C BC #### [facility] [address] [place] [address] Dr. Shawn Clay IG % 0.7 % Critically high 0.0-0.5 [facility] Comment on above: Performed By: #### C BC #### [facility] [address] [place] [address] Dr. Shawn Clay LYMPH # 3.1 103/ul Normal 1.2-3.8 [facility] Comment on above: Performed By: #### C BC #### [facility] [address] [place] [address] Dr. Shawn Clay Lymphocytes/100 WBC (Bld) 28.0 % Normal 20.5-60.0 [facility] Comment on above: Performed By: #### C BC #### [facility] [address] [place] [address] Dr. Shawn Clay MANUAL DIFF REQ NO Normal [facility] Comment on above: Performed By: #### C BC #### [facility] [address] [place] [address] Dr. Shawn Clay MCH (RBC) [Entitic mass] 30.1 pg Normal 25.9-34.0 [facility] Comment on above: Performed By: #### C BC #### [facility] [address] [place] [address] Dr. Shawn Clay MCHC (RBC) [Mass/Vol] 33.8 g/dL Normal 29.9-35.2 [facility] Comment on above: Performed By: #### C BC #### [facility] [address] [address] [address] Shawn Clay MCV (RBC) [Entitic vol] 89.1 fL Normal 80.0-94.0 [facility] Comment on above: Performed By: #### C BC #### [facility] [address] [address] [address] Shawn Clay MONO # 0.9 103/ul Critically high 0.3-0.8 [facility] Comment on above: Performed By: #### C BC #### [facility] [address] [address] [address] Shawn Clay Monocytes/100 WBC (Bld) 7.9 % Normal 1.7-12.0 [facility] Comment on above: Performed By: #### C BC #### [facility] [address] [address] [address] Shawn Clay NEUT # 6.8 103/ul Critically high 1.4-6.5 [facility] Comment on above: Performed By: #### C BC #### [facility] [address] [address] [address] Shawn Clay Neutrophils/100 WBC (Bld) 60.5 % Normal 43.0-75.0 [facility] Comment on above: Performed By: #### C BC #### [facility] [address] [address] [address] Shawn Clay Platelet mean volume (Bld) [Entitic vol] 9.4 fL Critically low 9.5-13.5 [facility] Comment on above: Performed By: #### C BC #### [facility] [address] [address] [address] Shawn Clay PLT 293 103/ul Normal 150-450 [facility] Comment on above: Performed By: #### C BC #### [facility] [address] [address] [address] Shawn Clay RBC 5.25 106/ul Normal 4.70-6.10 [facility] Comment on above: Performed By: #### C BC #### [facility] [address] [address] [address] Shawn Clay WBC 11.2 103/ul Critically high 4.0-11.0 [facility] Comment on above: Performed By: #### C BC #### [facility] [address] [address] [address] Shawn Clay GLYCOHEMOGLOBIN A1Con 2022 ADA RECOMMENDATION SEE BELOW Normal [facility] [place] Comment on above: Result Comment: ADA RECOMMENDED LIMIT 4.0 - 6.0 ADA THERAPEUTIC TARGET < 7.0 ACTION SUGGESTED > 7.0 Performed By: #### A 1C #### [facility] [address] [place] [address] Dr. Shawn Clay Glucose [Mass/Vol] 105 mg/dL Normal [facility] Comment on above: Performed By: #### A 1C #### [facility] [address] [place] [address] Dr. Shawn Clay HbA1c (Bld) [Mass fraction] 5.3 % Normal 4.5-6.2 [facility] Comment on above: Performed By: #### A 1C #### [facility] [address] [place] [address] Dr. Shawn Clay LIPID PROFILEon 03-04-2022 CHOL-HDL RATIO NORM SEE BELOW Normal [facility] Comment on above: Result Comment: 3.3 - 4.4 LOW RISK 4.4 - 7.1 AVERAGE RISK 7.1 - 11.0 MODERATE RISK >11.0 HIGH RISK Performed By: #### U EVERARDO, LIPID, CMP #### [facility] [address] [place] [address] Dr. Shawn Clay Cholesterol [Mass/Vol] 159 mg/dL Normal <=200 [facility] Comment on above: Performed By: #### U EVERARDO, LIPID, CMP #### [facility] [address] [place] [address] Dr. Shawn Clay Cholesterol in HDL [Mass/Vol] 34 mg/dL Critically low 40-60 [facility] Comment on above: Performed By: #### U EVERARDO, LIPID, CMP #### [facility] [address] [address] [address] Shawn Clay Cholesterol in LDL [Mass/Vol] 95.6 mg/dL Normal [facility] Comment on above: Performed By: #### U EVERARDO, LIPID, CMP #### [facility] [address] [address] [address] Shawn Clay Cholesterol.total/Ch olesterol in HDL [Mass ratio] 4.7 {ratio} Normal [facility] Comment on above: Performed By: #### U EVERARDO, LIPID, CMP #### [facility] [address] [address] [address] Shawn Clay HDL NORMAL > or = 60 mg/dl - LO W CARDIOVASCULAR RISK <40 mg/dl - HIGH CARDIOVASCULAR RISK Normal [facility] Comment on above: Performed By: #### U EVERARDO, LIPID, CMP #### [facility] [address] [address] [address] Shawn Clay LDL CALC NORMAL SEE BELOW Normal [facility] Comment on above: Result Comment: <100 mg/dl OPTIMAL 100 - 129 mg/dl NEAR OR ABOVE OPTIMAL 130 - 159 mg/dl BORDERLINE HIGH 160 - 189 mg/dl HIGH >190 mg/dl VERY HIGH Performed By: #### U EVERARDO, LIPID, CMP #### [facility] [address] [address] [address] Shawn Clay Triglyceride [Mass/Vol] 147 mg/dL Normal <=150 [facility] Comment on above: Performed By: #### U EVERARDO, LIPID, CMP #### [facility] [address] [address] [address] Shawn Clay VLDL CALC 29.4 mg/dL Normal [facility] Comment on above: Performed By: #### U EVERARDO, LIPID, CMP #### [facility] [address] [address] [address] Shawn Clay PROF 14(COMP METB)on 023 Albumin [Mass/Vol] 3.7 g/dL Normal 3.4-5.0 [facility] [place] Comment on above: Performed By: #### U EVERARDO, LIPID, CMP #### [facility] [address] [address] [address] Shawn Clay Albumin/Globulin [Mass ratio] 1.1 {ratio} Normal [facility] Comment on above: Performed By: #### U EVERARDO, LIPID, CMP #### [facility] [address] [address] [address] Shawn Clay ALP [Catalytic activity/Vol] 122 U/L Critically high 46-116 [facility] Comment on above: Performed By: #### U EVERARDO, LIPID, CMP #### [facility] [address] [address] [address] Shawn Clay ALT [Catalytic activity/Vol] 21 U/L Normal 16-63 [facility] Comment on above: Performed By: #### U EVERARDO, LIPID, CMP #### [facility] [address] [address] [address] Shawn Clay Anion gap [Moles/Vol] 11.3 mmol/L Normal [facility] Comment on above: Performed By: #### U EVERARDO, LIPID, CMP #### [facility] [address] [address] [address] Shawn Clay AST [Catalytic activity/Vol] 21 U/L Normal 15-37 [facility] Comment on above: Performed By: #### U EVERARDO, LIPID, CMP #### [facility] [address] [address] [address] Shawn Clay Bilirubin [Mass/Vol] 0.7 mg/dL Normal 0.2-1.0 [facility] Comment on above: Performed By: #### U EVERARDO, LIPID, CMP #### [facility] [address] [address] [address] Shawn Clay Calcium [Mass/Vol] 9.3 mg/dL Normal 8.5-10.1 [facility] Comment on above: Performed By: #### U EVERARDO, LIPID, CMP #### [facility] [address] [address] [address] Shawn Clay Chloride [Moles/Vol] 107 mmol/L Normal 98-107 [facility] Comment on above: Performed By: #### U EVERARDO, LIPID, CMP #### [facility] [address] [address] [address] Shawn Clay CO2 [Moles/Vol] 30.7 mmol/L Normal 21.0-32.0 [facility] Comment on above: Performed By: #### U EVERARDO, LIPID, CMP #### [facility] [address] [address] [address] Shawn Clay Creatinine [Mass/Vol] 1.25 mg/dL Normal 0.70-1.30 [facility] Comment on above: Performed By: #### U EVERARDO, LIPID, CMP #### [facility] [address] [address] [address] Shawn Clay EGFR-AF UZBEK >60 Normal >=60 [facility] Comment on above: Performed By: #### U EVERARDO, LIPID, CMP #### [facility] [address] [address] [address] Shawn Clay EGFR-NON AF UZBEK >60 Normal >=60 [facility] Comment on above: Performed By: #### U EVERARDO, LIPID, CMP #### [facility] [address] [address] [address] Shawn Clay Globulin (S) [Mass/Vol] 3.4 g/dL Normal [facility] Comment on above: Performed By: #### U EVERARDO, LIPID, CMP #### [facility] [address] [address] [address] Shawn Clay Glucose [Mass/Vol] 91 mg/dL Normal 74-106 [facility] Comment on above: Performed By: #### U EVERARDO, LIPID, CMP #### [facility] [address] [address] [address] Shawn Clay Potassium [Moles/Vol] 4.0 mmol/L Normal 3.5-5.1 [facility] Comment on above: Performed By: #### U EVERARDO, LIPID, CMP #### [facility] [address] [address] [address] Shawn Clay Protein [Mass/Vol] 7.1 g/dL Normal 6.4-8.2 [facility] Comment on above: Performed By: #### U EVERARDO, LIPID, CMP #### [facility] [address] [address] [address] Shawn Clay Sodium [Moles/Vol] 145 mmol/L Normal 136-145 [facility] [place] Comment on above: Performed By: #### U EVERARDO, LIPID, CMP #### [facility] [address] [address] [address] Shawn Clay Urea nitrogen [Mass/Vol] 20.0 mg/dL Critically high 7.0-18.0 [facility] Comment on above: Performed By: #### U EVERARDO, LIPID, CMP #### [facility] [address] [address] [address] Shawn Clay Urea nitrogen/Creatinine [Mass ratio] 16.0 mg/mg Normal [facility] Comment on above: Performed By: #### U EVERARDO, LIPID, CMP #### [facility] [address] [address] [address] Shawn Clay URIC ACID SERUMon 03-04-2022 Urate [Mass/Vol] 6.9 mg/dL Normal 3.5-7.2 [facility] Comment on above: Performed By: #### U EVERARDO, LIPID, CMP #### [facility] [address] [address] [address] Shawn Clay MR lumbar spine wo conon MR lumbar spine wo [facility] [place] [address] MRI Report Signed Patient: Chan Aaron MR#: [id number] [id number] : 1975 Acct:[id number] Age/Sex: 46 / M ADM Date: 02/26/22 Loc: MR [facility]: Angi Fatima MD Copies to: [...] Giancarlo Greer M.D.02/27/2022 9:26 AM Dictation Location: [place] [address] Transcribed By: [facility] 02/27/22925 Dictated By: Giancarlo Greer DO 02/27/22920 Signed By: 02/27/22925 [facility] MR lumbar spine wo/w conon 0 06-28-2021 MR lumbar spine wo/w con [facility] [place] [address] [place] [address] MRI Report Signed Patient: Chan Aaron MR#: [id number] : 1975 Acct:[id number] Age/Sex: 45 / M ADM Date: 06/28/21 Loc: MR [facility]: [facility]: Jaleel Nair DO, [facility] Ordering Provider: Jaleel Nair DO Date of Service: 06/28/21 MR/MR lumbar spine wo/w con: SEVERE LUMBAR PAIN, BILATERAL RADICULOPATHY Copies to: Jaleel P Kuns, DO MRI lumbar spine 06/28/2021. CLINICAL DATA: [...] Rosario Jr., M.D.06/28/2021 4:41 PM Dictation Location: [place] [address] Transcribed By: [facility] 06/28/21 1641 Dictated By: Danie Rosario Jr, MD 06/28/21 1631 Signed By: 06/28/21 1641 [facility] XR lumbar spine 2-3V*on 05-17 XR lumbar spine 2-3V* [facility] [place] [address] XRay Report Signed Patient: Chan Aaron MR#: [id number] : 1975 Acct:[id number] Age/Sex: 45 / M ADM Date: 06/06/21 Loc: ER Room: Type: [facility] ER Attending Dr: Ordering Provider: Demarcus Bender DO Date of Service: 06/06/21 XR/XR lumbar spine 2-3V*: Back Pain/Injury Copies to: Demarcus Bender, DO LUMBAR SPINE - 2 views COMPARISON: [...] Raquel Azevedo M.D.06/06/2021 5:43 PM Dictation Location: [place] [address] Transcribed By: [facility] 06/06/211742 Dictated By: Raquel Azevedo MD 06/06/211741 Signed By: 06/06/211742 [facility] LUMB SP COMP W FLEX/EXT 6 VW Son 08-06-2020 LUMB SP COMP W FLEX/EXT 6 VWS STUDY: LUMB SP COMP W FLEX/EXT 6 VWS ; 08/06/2020 8:26 am INDICATION: PAIN. COMPARISON: None. ACCESSION NUMBER(S): [id number] ORDERING CLINICIAN: Giancarlo Cardozo FINDINGS: No fracture or subluxation of the lumbar spine. Mild multilevel disc height loss with scattered small endplate osteophytes. Multilevel facet arthropathy. Slight retrolisthesis L2-3 and L3-4. No pars defects. No instability on flexion or extension. IMPRESSION: Mild to moderate degenerative changes of the lumbar spine without instability. Normal [facility] Basic Metabolic Panlon 05-17 Anion gap [Moles/Vol] 10 mmol/L Normal 9-18 [facility] Comment on above: Performed By: #### C BC, BMP #### [facility] [email or web address] [address] [place], [place] [address] Calcium [Mass/Vol] 9.4 mg/dL Normal 8.5-10.2 [facility] Comment on above: Performed By: #### C RICHA, BMP #### [facility] [email or web address] [address] [place], [place] [address] Chloride [Moles/Vol] 105 mmol/L Normal 97-105 [facility] Comment on above: Performed By: #### C BC, BMP #### [facility] [address] [address] CO2 [Moles/Vol] 25 mmol/L Normal 22-30 [facility] Comment on above: Performed By: #### C BC, BMP #### [address] [place] [address] Creatinine [Mass/Vol] 1.11 mg/dL Normal 0.73-1.22 [facility] Comment on above: Performed By: #### C RICHA, BMP #### [address] [place] [address] eGFR- Amer. >60 Normal [facility] Comment on above: Performed By: #### C RICHA, BMP #### [address] [place] [address] eGFR-All Other Races >60 Normal [facility] Comment on above: Result Comment: eGFR [...] accurately reflect actual GFR. Performed By: #### C BC, BMP #### [facility] [address] [address] Glucose [Mass/Vol] 84 mg/dL Normal 74-99 [facility] Comment on above: Result Comment: The [place] Diabetes Association (ADA) provides guidance for cutoff [...] Standards of Medical Care in Diabetes 2016, [place] [employer] Association. Diabetes Care. 2016.39(Suppl 1). Performed By: #### C RICHA, BMP #### [facility] [email or web address] [address], [place] [address] Potassium [Moles/Vol] 4.5 mmol/L Normal 3.7-5.1 [facility] Comment on above: Performed By: #### C RICHA, BMP #### [address] [address] [place], [place] [address] Sodium [Moles/Vol] 140 mmol/L Normal 136-144 [facility] Comment on above: Performed By: #### Avel CHAUDHRY, BMP #### [facility] [address], [place] [address] Urea nitrogen [Mass/Vol] 17 mg/dL Normal 9-24 [facility] Comment on above: Performed By: #### Avel CHAUDHRY, BMP #### [facility] [email or web address] [address] [place], [place] [address] CBCon 05-17-2020 Absolute nRBC <0.01 Normal <0.01 [facility] Comment on above: Performed By: #### C RICHA, BMP #### [facility] [email or web address] [address] [place], [place] [address] Erythrocyte distribution width (RBC) [Ratio] 12.1 % Normal 11.5-15.0 [facility] Comment on above: Performed By: #### C RICHA, BMP #### [facility] [email or web address] [address] [place], [place] [address] Hematocrit (Bld) [Volume fraction] 46.6 % Normal 39.0-51.0 [facility] Comment on above: Performed By: #### C BC, BMP #### [address] [place] [address] Hemoglobin (Bld) [Mass/Vol] 15.2 g/dL Normal 13.0-17.0 [facility] Comment on above: Performed By: #### C BC, BMP #### [place] [address] MCH 29.6 pG Normal 26.0-34.0 [facility] Comment on above: Performed By: #### C BC, BMP #### [place] [address] MCHC (RBC) [Mass/Vol] 32.6 g/dL Normal 30.5-36.0 [facility] Comment on above: Performed By: #### C RICHA, BMP #### [place] [address] MCV (RBC) [Entitic vol] 90.7 fL Normal 80.0-100.0 [facility] Comment on above: Performed By: #### C BC, BMP #### [place] [address] Platelet mean volume (Bld) [Entitic vol] 10.1 fL Normal 9.0-12.7 [facility] Comment on above: Performed By: #### C BC, BMP #### [place] [address] Platelets (Bld) [#/Vol] 298 10*3/uL Normal 150-400 [facility] Comment on above: Performed By: #### C BC, BMP #### [place] [address] RBC (Bld) [#/Vol] 5.14 10*6/uL Normal 4.20-6.00 [facility] Comment on above: Performed By: #### C BC, BMP #### [facility] [address] [place], [place] [address] WBC (Bld) [#/Vol] 11.64 10*3/uL High 3.70-11.00 [facility] Comment on above: Performed By: #### C BC, BMP #### [facility] [address] [place], [place] [address] CNOVon 05-17-2020 CNOV Office Visit (UROLMN ) SHAYECHAN ([id number]) 1975 M Date Time Provider Department 05/17/20 9:15 AM CHYNA HANNA During your visit today, we recorded the following information about you: Weight Height 113.4 kg 1.829 m Shelbi Sotelo APRN.[employer] HR REPRESENTATIVE 05/17/2020 9:26 AM Signed REASON FOR VISIT: Follow up for renal mass HPI: Chan Aaron is a 44 year old male [...] No results found for: PSA URINALYSIS: Specific [place], Ur Date Value Ref Range Status 11/24/2019 [...] CMP. Discussed with Dr. Hanna. Shelbi Sotelo, SMALL ENGINE SPECIALIST.[facility] Referring Provider: SELF [200] Allergies As of Date: 05/17/2020 (No Known Allergies) Date Reviewed: 05/17/2020 Reviewed by: Shelbi (Brigida Sotelo - Fully Assessed Reason for Visit: Follow Up (more content not included)... Normal [facility] CT KIDNEY WO/W IVCONon 05-17 CT KIDNEY WO/W IVCON * * *Final Report* * * DATE OF EXAM: May 17 2020 7:53AM [facility] 0546 - CT KIDNEY WO/W IVCON / [...] neoplastic bone disease Lower thorax: No nodules Front Desk Associate (topogram) images: No additional findings. IMPRESSION: NO RECURRENT OR METASTATIC DISEASE. Yard Coupler: [facility] Transcribe Date/Time: May 17 2020 8:18A Dictated by : MATT LEIGH MD This examination was interpreted and the report reviewed and electronically signed by: MATT LEIGH MD on May 17 2020 8:28AM EST [id number] Normal [facility] Urinalysison 05-17-2020 Bilirubin, Urine Negative Normal Negative Jerman [facility] Comment on above: Performed By: #### U A #### [facility] [email or web address] [address] [place], [place] [address] Clarity (U) Clear Normal Clear [facility] Comment on above: Performed By: #### U A #### [facility] [address] [place], [place] [address] Color (U) Light Yellow Critically abnormal Yellow [facility] Comment on above: Performed By: #### U A #### [facility] [address] [place], [place] [address] Comments SEE COMMENT Normal [facility] Comment on above: Result Comment: Micr oscopic not warranted Performed By: #### U A #### [place] [address] [place] [address] Glucose Ql (U) Negative Normal Negative [facility] Comment on above: Performed By: #### U A #### [place] [address] Hemoglobin/Blood,Ur Negative Normal Negative [facility] Comment on above: Performed By: #### U A #### [place] [phone] Ketones Ql (U) Negative Normal Negative [facility] Comment on above: Performed By: #### U A #### [place] [address] [place] [address] Leukest Negative Normal Negative [facility] Comment on above: Performed By: #### U A #### [place] [address] [place] [address] Nitrite Ql (U) Negative Normal Negative [facility] Comment on above: Performed By: #### U A #### [address] [place] [address] [place], [place] [address] pH (U) 6.0 [pH] Normal 5.0-8.0 [facility] Comment on above: Performed By: #### U A #### [address] [place], [place] [address] Protein, Urine Negative Normal Negative [facility] Comment on above: Performed By: #### U A #### [facility] [email or web address] [address] [place], [place] [address] Specific [place], Ur >1.045 High 1.005-1.030 [facility] Comment on above: Performed By: #### U A #### [facility] [email or web address] [address] [place], [place] [id number] Urine Kenny Comment SEE COMMENT Normal [facility] Comment on above: Result Comment: N/A Performed By: #### U A #### [facility] [email or web address] [address] [place], [place] [id number] Urobilinogen (U) [Mass/Vol] Negative Normal Negative [facility] Comment on above: Performed By: #### U A #### [facility] [email or web address] [address] [place], [place] [address] XR CHEST 2V FRONTAL/LATon XR CHEST 2V [...] tissues: Unremarkable. IMPRESSION: No acute radiographic abnormality. Yard Coupler: [facility] Transcribe Date/Time: May 17 2020 8:26A Dictated by : WIL CANALES MD This examination was interpreted and the report reviewed and electronically signed by: WIL CANALES MD on May 17 2020 8:27AM EST [id number] Normal [facility] ABDOMEN W W/O IV CONTRAST on 10-11-2019 CT ABDOMEN W W/O IV CONTRAST Patient Name: JOSUE AARON STUDY: CT ABDOMEN W W/O IV CONTRAST; 10/11/2019 11:39 am INDICATION: Cystic kidney disease, unspecified. COMPARISON: None ACCESSION NUMBER(S): [id number] ORDERING CLINICIAN: NORBERT HERMOSILLO TECHNIQUE: CT Kidney [...] ABDOMEN Electronically signed by: MATT LYNN MD [facility] Vital Signs Date Time Vital Sign Value Performing Clinician Faci lity 10-23-2024 10:280400 Body height 182.88 cm Norbert Hermosillo MD Work Phone: [facility] 10-23-2024 10:28-0400 Body mass index (BMI) [Ratio] 33.9 kg/m2 Norbert Hermosillo MD Work Phone: [facility] 10-23-2024 10:28-0400 Body weight 113.39 kg Norbert Hermosillo MD Work Phone: [facility] 06-06-2021 16:27-0400 Body height 182.88 cm DO Demarcus Bender Work Phone: [facility] 06-06-2021 16:27-0400 Body mass index (BMI) [Ratio] 36.1 kg/m2 DO Demarcus Bneder Work Phone: [facility] 06-06-2021 16:27-0400 Body temperature 97.5 [degF] DO Demarcus Bender Work Phone: [facility] 06-06-2021 16:27-0400 Body weight 120.7 kg DO Demarcus Tupa Work Phone: [facility] 06-06-2021 16:27-0400 Diastolic blood pressure 72 mm[Hg] DO Demarcus Tupa Work Phone: [facility] 06-06-2021 16:27-0400 Heart rate 71 /min DO Demarcus Tupa Work Phone: [facility] 06-06-2021 16:27-0400 Respiratory rate 18 /min DO Demarcus Anooppa Work Phone: [facility] 06-06-2021 16:27-0400 SaO2% (BldA) [Mass fraction] 96 % DO Demarcus Tupa Work Phone: [facility] 06-06-2021 16:27-0400 Systolic blood pressure 138 mm[Hg] DO Demarcus Anooppa Work Phone: [facility] Encounters Encounter Date Encounter Type Care Provider Facility Start: 10-23-2024 End: 10-23-2024 ambulatory Norbert Hermosillo MD Work Phone: [facility] Work Phone: Start: 10-23-2024 End: 10-23-2024 Patient encounter procedure Judd Hi DO -[facility] [place] Work Phone: Start: 10-23-2024 End: 10-23-2024 Preprocedural examination done Judd Hi DO [facility] Start: 04-24-2023 End: 04-24-2023 Emergency department patient visit Josue Valderrama Facility:[facility] Start: 03-25-2022 ambulatory Jaleel Nair Facility:[facility] Start: 03-25-2022 End: 03-25-2022 ambulatory MD Norbert Hermosillo Work Phone: [facility] Work Phone: Start: 03-25-2022 End: 03-25-2022 Discharged Recurring MD Norbert Hermosillo Work Phone: [facility] [address] Start: 03-09-2022 Encounter for genera l adult medical examination without abnormal findings DR NORBERT HERMOSILLO [facility] Start: 03-04-2022 End: 03-05-[address] NORBERT HERMOSILLO Facility:[facility] Start: 03-04-2022 End: 03-05-2022 Encounter for general adult medical examination without abnormal findings DR NORBERT HERMOSILLO Facility:[facility] Start: 02-26-2022 End: 02-26-2022 ambulatory Angi A Blades Facility:[facility] Start: 02-26-2022 End: 02-26-2022 Patient encounter procedure MD Norbert Hermosillo Work Phone: [facility] [place] Work Phone: Start: 02-24-2022 End: 02-24-2022 ambulatory Angi Blades Other [facility] Other Start: 02-24-2022 Telephone encounter Angi Blades [facility] Start: 02-19-2022 End: 02-19-2022 ambulatory Angi Blades Other [facility] Other Start: 02-19-2022 Telephone encounter Angi Blades [facility] [employer] Start: 01-26-2022 End: 01-26-2022 ambulatory Neal Curtis Other [facility] Other Start: 01-26-2022 Office outpatient vi sit 25 minutes Neal Curtis [facility] [place] Start: 01-23-2022 Registered Recurring MD Dayana Hermosillo Work Phone: [facility] [address] Start: 12-24-2021 End: 12-24-2021 ambulatory Neal Curtis Other [facility] Other Start: 12-24-2021 Office outpatient vi sit 15 minutes Neal Curtis [facility] [place] Start: 12-01-2021 (Procedure) Forest Curtis [facility] Start: 12-01-2021 End: 12-01-2021 ambulatory Neal Tother Other [facility] Other Start: 11-03-2021 (Procedure) Forest Curtis [facility] Start: 11-03-2021 End: 11-03-2021 ambulatory Neal Tother Other [facility] Other Start: 10-29-2021 End: 10-29-2021 ambulatory Jaleel Nair Facility:[facility] Start: 10-21-2021 End: 10-21-2021 ambulatory Neal Tother Other [facility] Other Start: 10-21-2021 Office outpatient vi sit 25 minutes Neal Tother [facility] [place] Start: 10-06-2021 (Procedure) Forest Curtis [facility] Start: 10-06-2021 End: 10-06-2021 ambulatory Neal Tother Other [facility] Other Start: 09-10-2021 End: 09-10-2021 ambulatory Neal Tother Other [facility] Other Start: 09-10-2021 Office outpatient vi sit 25 minutes Neal Tother [facility] [place] Start: 09-03-2021 (Procedure) Forest Curtis [facility] Start: 09-03-2021 End: 09-03-2021 ambulatory Neal Tother Other [facility] Other Start: 09-03-2021 Telephone encounter Neal SAENZ [facility] [place] Start: 08-25-2021 End: 08-25-2021 ambulatory Neal Tother Other [facility] Other Start: 08-25-2021 Telephone encounter Neal SAENZ [facility] Start: 08-21-2021 End: 08-21-2021 ambulatory Neal Curtis Other [facility] Other Start: 08-21-2021 Office outpatient vi sit 25 minutes Neal Curtis [facility] Start: 06-28-2021 End: 06-28-2021 ambulatory Jaleel Deshawn Joanie Facility:[facility] Start: 06-28-2021 End: 06-28-2021 Patient encounter procedure DO Demarcus Bender Work Phone: [facility] [place] Start: 06-06-2021 End: 06-06-2021 Emergency department patient visit Demarcus M Yulia Facility:[facility] Start: 06-06-2021 End: 06-06-2021 Emergency department patient visit DO Demarcus Bender Work Phone: [facility]Emergency [facility] Start: 01-16-2016 End: 01-17-2016 Ambulatory RODRIGO LUCERO Facility:[facility] Procedures Date Procedure Procedure Detail Performing Clinician Start: 03-04-[address] DAYANA HERMOSILLO Comment on above: Performed By: #### P [facility] #### [facility] [address] [place] [address] Dr. Shawn Clay Start: 02-26-2022 MR lumbar spine wo con MD Norbert Hermosillo Work Phone: Start: 06-28-2021 MRI of lumbar spine with contrast DO Demarcus Bender Work Phone: Start: 06-06-2021 X-ray of lumbar spin e, two or three views DO Demarcus Bender Work Phone: H/O: surgery History of surge ry on arm Norbert Hermosillo MD Work Phone: Comment on above: x 5 left arm Plan of Treatment Date Care Activity Detail Author Patient Education Low Back Pain ED [facility] Work Phone: Patient referral [facility] Work Phone: Payers Date Payer Category Payer Unknown [id number] 2021 Self-pay [id number] 2021 Unknown [id number] 2021 Worker's Compensation [id number] 1975 Unknown [id number] 2.16.84 [id number] 1975 Unknown [id number] 2.16.8 [id number] 1959 Unknown [id number] 1961 Unknown [id number] Blue [employer] [facility] [id number] Private Health Insurance [id number] Private Health Insurance [id number] Unknown [id number] 2.16.84 [id number] Unknown [id number] 2.16.8 [id number] Unknown [id number] 2.16.8 [id number] Unknown [id number] 2.16.8 [id number] Unknown [id number] 2.16.8 [id number] Unknown [id number] 2.16.8 [id number] Unknown O [id number] Social History Date Type Detail Facility Start: 06-06-2021 End: 06-06-2021 Tobacco smoking status MEIS Smoker (finding) [facility] Start: 1975 Sex Assigned At Male F [facility] Sex Assigned At Sex Assigned At Bir th [facility] Other Start: 06-06-2021 Tobacco smoking status NHIS Smokes tobacco daily (finding) [facility] Sex Male (finding) [facility] Clinical Notes 05-17-2020 to 02-18-2022 Note Date & Type Note Facility 02-18-2022 Reason for referral (narrative) Diagnosis 1 Other intervertebral disc displacement, lumbar region (M51.26) Referral Organization [facility] Referring Provider First Name Neal Referring Provider Last Name Ever Referring Provider Specialty Pain Medicine Referred Organization [facility] urosurgery Referred Provider Angi Fatima Referred Address [address] [address],[place], [place],[address] Referred Provider Specialty Neurological Surgery Referral Priority Routine Referral Appointment Date 2022-02-18 General Notes Zoey Ruff 03:21:57 PM >sending p2p at this time, patient was seen by Dr Gtz in July Zoey Ruff 02/03/2022 07:49:07 AM >Referral was received, the Neurosurgery office is awaiting the [facility] approval before scheduling patient Zoey Ruff 02/10/2022 10:14:31 AM >office still awaiting [facility] approval letter Zoey Ruff 02/17/2022 02:38:34 PM >Patient now scheduled with Dr Fatima 02/18/22 Gaye Cook 02/19/2022 07:38:16 AM >Sent telephone encounter to referring physician to let them know that the consult letter is ready for their review [facility] Other 12-12-2022 Evaluation note* Encounter Date Diagnosis [...] note writ ten by Landon Mosley MA, Back Sewer. Edited and approved by Dr. Neal Curtis MD. [facility] Other 11-09-2022 Evaluation note* Encounter Date Diagnosis [...] note writ ten by Jayro Rivas LPN, Back Sewer. Edited and approved by Dr. Neal Curtis MD. [facility] Other 09-06-2022 Evaluation note* Encounter Date Diagnosis [...] to schedule once we have approval from [facility]. It was further explained should this provide significant short term relief we will proceed with a radiofrequency ablation. Anatomy of spine discussed in detail with patient in regard to patients condition. Oct, Other Above note writ ten by Landon Mosley MA, Back Sewer. Edited and approved by Dr. Neal Curtis MD. [facility] Other 07-27-2022 Evaluation note* Encounter Date Diagnosis [...] to schedule once we have approval from [facility]. Additionally, we discussed referring the patient to physical therapy however he would like to discuss this with Dr. Nair. Patient will continue Flexeril as needed. Anatomy of spine discussed in detail with patient in regard to patients condition. Aug, Other Above note writ ten by Landon Mosley MA, Back Sewer. Edited and approved by Dr. Neal Curtis MD. [facility] Other 07-07-2022 Evaluation note* Encounter Date Diagnosis [...] to schedule once we have clarification from [facility]. We discussed continuing Ibuprofen as needed. Anatomy of spine discussed in detail with patient in regard to patients condition. Aug, Other Above note writ ten by Jayro Rivas LPN, Back Sewer. Edited and approved by Dr. Neal Curtis MD. [facility] Other 04-02-2021 NotePatient Outreach (UROLMN) CHAN AARON ([id number]) 1975 M Date Time Provider Department 05/17/20 CHYNA HANNA During your visit today, we recorded the following information about you: Allergies As of Date: 05/17/2020 (No Known Allergies) Date Reviewed: 05/17/2020 Reviewed by: Shelbi Jurado) Deepak - Fully Assessed Visit Diagnosis:Screening for genitourinary condition [Z13.89] Order(s):URINALYSIS, DIPSTICK ONLY [SQUA] Order #: [id number]. 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 Author Type: Nurse Practitioner Type: Progress Notes Filed: 05/17/2020 9:26 AM Note Text: REASON FOR VISIT: Follow up for renal mass HPI: Chan Aaron is a 44 year old male [...] No results found for: PSA URINALYSIS: Specific [place], Ur Date Value Ref Range Status 11/24/2019 [...] CMP. Discussed with Dr. Hanna. Shelbi Sotelo, SMALL ENGINE SPECIALIST.[facility]04-02-2021 NoteHNO ID: [id number] Author: Mague Casas (Rt) Mery Patterson Service: Radiology Author Type: Tubing Drier Type: Progress Notes Filed: 05/17/2020 8:07 AM Note Text: Radiology Service Progress Note PATIENT NAME: Chan Aaron DATE OF SERVICE: May 17, 2020 [...] BY: RT Saida May 17, 2020 8:06 [facility]04-02-2021 NoteHNO ID: [id number] Author: Emi Casas (Ct) ARLEY Vila Service: Radiology Author Type: Clinical Tubing Drier Type: Progress Notes Filed: 05/17/2020 7:52 AM Note Text: Radiology Service Progress Note PATIENT NAME: Chan Aaron DATE OF SERVICE: May 17, 2020 [...] BY: ARLEY Hilton May 17, 2020 7:43 [facility]04-02-2021 NoteHNO ID: [id number] Author: Catalina Parish RN Service: Radiology Author [...] Intact SIGNATURE: Catalina Parish RN PATIENT NAME: Chan Aaron DATE: May 17, 2020 TIME: 7:32 [facility] noteNo assessment information available[facility] Work Phone: Evaluation noteNo InformationNortNazareth Hospital [facility] Other Evaluation note* Diagnosis Onset Date Resolution Status Admit Date Pre-op exam acute October 10:25am Tear of medial meniscus of right knee acute October 23, 025 10:25am [facility] Work Phone: History general Narrative - Reported* Type Description Date Medical History hypertension Surgical History nephrectomy-partial Surgical History cholecystectomy Surgical History left arm surgery x5 Surgical History left knee surgery [facility] Other History general Narrative - Reported* Type Description Date Medical History hypertension Medical History kidney disease Medical History gall bladder disease Surgical History nephrectomy-partial Surgical History cholecystectomy Surgical History left arm surgery x5 Surgical History left knee surgery Hospitalization History see surgical Hx [facility] Other Reason for referral (narrative)No reason for referral information [facility] Work Phone: Summary Purpose Family History Relationship Condition Age at Onset Recorded Date/T sloan father Diabetes mellitus Unknown Unknown Advance Directives Advance Directive Response Recorded Date/ Time Advance Directives No July 12 8 7:24am Advance Directive Response Recorded Date/ Time Advance Directives No July 12 6:24am Chief Complaint and Reason for Visit Chief Complaint BACK PAIN Chief Complaint BACK PAIN severe lumbar pain, bilateral radiculopathy Chief Complaint Work Conditioning- L -5 strain, disc displacement Chief Complaint s39.012a Work Conditioning- L-5 strain, disc displacement Chief Complaint Admit Date TB CONSULT DR HERMOSILLO RT KNEE PAIN WX [facility] A [facility] MRI October 23, 2024 10:25am Reason for Visit Admit Date Pre-op exam October 23, 2024 10:25am Tear of medial meniscus of right knee Se ptember 2024 10:25am Additional Source Comments (unrecognized sect ion and content) No Status Records FoundNo Status Records FoundNo Status Records FoundNo Status Records FoundNo Status Records FoundNo Status Records FoundNo Status Records Found INFORMATION SOURCE (unrecogn ized section and content) DATE CREATED AUTHOR 08/11/2017 [facility] DATE CREATED AUTHOR AUTHOR'S ORGANIZ ATION 01/20/2020 [facility] DATE CREATED AUTHOR AUTHOR'S ORGANIZ ATION 08/15/2020 [facility] DATE CREATED AUTHOR AUTHOR'S ORGANIZ ATION 02/25/2021 [facility] DATE CREATED AUTHOR AUTHOR'S ORGANIZ ATION 03/11/2022 [facility] DATE CREATED AUTHOR AUTHOR'S ORGANIZ ATION 03/26/2022 [facility] DATE CREATED AUTHOR AUTHOR'S ORGANIZ ATION 04/25/2023 [facility] Care Teams (unrecognized sec tion and content) Team Status: Inactive Member Role Status Dates Demarcus Bender DO Emergency Provider Active Norbert Hermosillo MD Primary Care Provider Active Team Status: Active Member Role Status Dates Norbert Hermosillo MD Primary Care Provider Active Team Status: Inactive Member Role Status Dates Norbert Hermosillo MD Primary Care Provider Active Jaleel Nair DO [facility] Attending Provider Active Team Status: Active Member Role Status Dates Norbert Hermosillo MD Primary Care Provider Active Jaleel Nair DO [facility] Attending Provider Active Team Status: Inactive Member Role Status Dates Norbert Hermosillo MD Primary Care Provider Active Angi Fatima MD Attending Provider Active Team Status: Inactive Member Role Status Dates Norbert Hermosillo MD Primary Care Provider Active Start: October 23, 2024 End: October 23, 2024 Judd Hi DO Attending Provider Active S tart: October 23, 2024 End: October 23, 2024 Goals (unrecognized section and content) Goals may be documented in a n alternate sectionGoals may be documented in an alternate sectionNo InformationNo InformationNo InformationNo InformationNo InformationNo InformationNo InformationNo InformationNo InformationNo InformationGoals may be documented in an alternate sectionGoals may be documented in an alternate sectionNo InformationNo InformationNo InformationGoals may be documented in an alternate section REASON FOR VISIT (unrecogniz ed section and [...] BE BASED ON THE PRIMARY CLINICAL RECORDS. [employer] provides no warranty or guarantee of the accuracy or completeness of information in this document.
--- NOTE | 2024-11-20 12:02 | W.PM.OPNOTE ---
Surgery Operative Note Operative Note Procedure Date: 11/20/24 Time Out Performed: yes Pre-op Diagnosis: Right knee medial meniscus tear Post-op Diagnosis: other (Right knee medial meniscus tear, medial compartment chondromalacia, patellofemoral chondromalacia, synovitis) Procedures performed: Right knee arthroscopy with partial medial meniscectomy, medial femoral chondroplasty, trochlear chondroplasty Anesthesia: General-LMA Primary Surgeon: Judd Hi Estimated blood loss (mL): 10 Findings: See op note Indications for Procedures: Right knee medial meniscus tear Detailed description of Procedure: OPERATIVE REPORT Chan Aaron 1975 Preoperative Diagnosis: Right medial meniscal tear Postoperative Diagnosis: Right medial meniscal tear, medial compartment chondromalacia, trochlear chondromalacia, synovitis Procedure: Arthroscopic partial right medial meniscectomy, medial femoral chondroplasty, trochlear chondroplasty Surgeon:Judd Hi DO Small Engine Mechanic: None Anesthesiologist: See EMR OR Staff: See EMR Implants: None EBL: Minimal Complications: None Disposition: PACU in stable condition Indications: Chan is a 49-year-old male presenting with significant knee pain resulting from the aforementioned diagnosis. The procedure is indicated to obtain pain relief and minimize risks of continued tearing with activity. After thorough discussion of the risks, benefits, expected outcomes, and alternatives to surgical intervention, the patient agreed to proceed with surgical treatment. Specific risks discussed included, but were not limited to: superficial or deep infection, wound healing complications, DVT/PE, significant bleeding requiring transfusion, damage to named anatomic structures in the immediate area including named neurovascular structures, failure to improve pain, worsening of degenerative changes, and general risks of anesthesia. The patient voiced understanding and written as well as verbal consent was obtained by myself prior to the procedure. Procedure Note: The patient was brought back to the OR and placed supine on the OR table. After successful induction of anesthesia by anesthesia staff, the patient was positioned in the arthroscopic leg jimenez and a tourniquet was applied. This was elevated during the procedure. The surgical field was then provisionally cleansed and then prepped and draped in the usual sterile fashion. At this time a time-out was performed, with the correct patient, site, and procedure identified. The universal time out as well as sign your site protocols were followed. Preoperative antibiotics were verified as administered. We began with marking anatomic landmarks about the knee and then created an anterolateral arthroscopic portal. The knee was then insufflated, and the suprapatellar pouch was evaluated. Loose bodies and/or plica were not seen. The scope was then brought around to the anterior knee and we then created an anteromedial arthroscopic portal under spinal needle guidance. We probed the medial meniscus and we found that a tear was noted which extended from approximately the 3 o'clock position to 12 o'clock position at the posterior root. This was not displaced. I used arthroscopic shaver and biters to debride this tear back to stable margins. There was grade 2-3 chondromalacia on the distal femur here and grade 2 chondromalacia on the tibial plateau. We used the arthroscopic shaver to perform chondroplasty of the femoral condyle. The notch was then examined and the ACL/PCL were intact. The lateral compartment was entered and we found that the meniscus was benign and no chondromalacia was appreciated on the femur or tibia. The medial and lateral gutters were evaluated. No loose bodies were noted. Moderate synovitis was noted in the gutters. The patellofemoral articulation was examined - patellofemoral tracking appeared normal. Grade 2-3 chondromalacia was seen on the patella at the apex and grade 3-4 on the lateral trochlea. We used the arthroscopic shaver to perform chondroplasty of the lateral trochlea. The incisions were then irrigated using copious sterile saline and then closed with 3-0 nylon. The surgical sites were infiltrated using local anesthetic, and the leg was sterilely cleansed and dressed. The patient was then subsequently extubated and transferred to to PACU in a stable condition. All sponge and needle counts were correct at the end of the case. I was present and participated in all aspects of the procedure. Prognosis: The patient will be allowed to WBAT and do activities as tolerated. We will use 3 weeks of ASA for DVT prophylaxis and this was discussed with the patient preoperatively. We will see the patient back in 1 weeks for suture removal. The patient will be given instructions regarding ice/rest/ROM exercises for routine knee arthroscopy recovery. Judd Hi, Attending Doc Confirm Attending Attestation: Yes
[2024-11-20] MEDS: CEFAZOLIN SODIUM 2 GM/50 ML D5W PREMIX IV (12:55)
[2024-11-20] MEDS: BUPIVACAINE HCL 0.5% PF 50 MG/10 ML VIAL 30 ML INJ (13:35)
== END 2024-11-20 14:47 | disposition home or self-care (01) ==
PROVIDERS: PCP Family Medicine; Visit Provider Orthopaedic Surgery Orthopaedic Trauma
PROC: (CPT 1400; principal; 2024-11-20 12:30)
DX: S83.241A Other tear of medial meniscus, current injury, right knee, initial encounter (principal); M94.261 Chondromalacia, right knee; M65.961 Unspecified synovitis and tenosynovitis, right lower leg; M25.561 Pain in right knee; Z90.49 Acquired absence of other specified parts of digestive tract; Z90.5 Acquired absence of kidney; F17.210 Nicotine dependence, cigarettes, uncomplicated; I10 Essential (primary) hypertension; G89.29 Other chronic pain
CPT/HCPCS: 29881; 36415; J0665; J0690; J1100; J2250; J2405; J2704; J3010

== ENCOUNTER 2024-11-29 10:52 | Outpatient (RCR) | payer OTHER, SELFPAY | END 2024-12-14 07:36 | disposition home or self-care (01) | LOC: PT 10:52 | PROVIDERS: PCP Family Medicine; Visit Provider Orthopaedic Surgery Orthopaedic Trauma | DX: S83.241D Other tear of medial meniscus, current injury, right knee, subsequent encounter (principal) | CPT/HCPCS: 97014; 97110; 97112; 97162 ==